=== PATIENT | male | born 1930 | race Caucasian/White ===

== ENCOUNTER 2017-01-30 06:46 | Day surgery (SDC) | payer OTHER, BC ==
[2017-01-29 11:13] VITALS: BMI 25.1
[~2017-01-30 06:46] MED LIST: LEVOFLOXACIN 500 MG PREMIX BAG IVPB ONE
[2017-01-30] MEDS ORDERED: LEVOFLOXACIN 500 MG IVPB 100 ML IVPB ONE (07:50)
[2017-01-30] MEDS ORDERED: MIDAZOLAM HCL 2 MG/2 ML SINGLE DOSE VIAL ONE (08:08)
[2017-01-30] MEDS ORDERED: LEVOFLOXACIN 500 MG PREMIX BAG IVPB ONE (08:20)
[2017-01-30] MEDS ORDERED: IOHEXOL 300 MG/ML INFUS..BTL IV ONE (08:24)
[2017-01-30] MEDS ORDERED: oxyCODONE HCL 5 MG TABLET PO PRN (08:41)
--- NOTE | 2017-01-30 08:43 | OP ---
Operative Note - Note: Operative Date: 01/30/17 Pre-Operative Diagnosis: rt distal ureteral stone Operation: ESWL Post-Operative Diagnosis: Same as Pre-op Surgeon: Luis Draper Anesthesia: General Estimated Blood Loss (mls): 0 Operative Report Dictated: Yes
[2017-01-30] MEDS ORDERED: PROPOFOL 20 ML ONE (08:45)
[2017-01-30] MEDS ORDERED: ELECTROLYTE-148 SOLN 1,000 ML IV SCH (08:45)
[2017-01-30] MEDS ORDERED: ONDANSETRON 4 MG/2 ML VIAL IVPUSH PRN (09:05)
[2017-01-30] MEDS ORDERED: ACETAMINOPHEN 325 MG TABLET (FP) PO PRN (09:05)
[2017-01-30] MEDS ORDERED: LACTATED RINGERS SOLUTION 1,000 ML IV SCH (09:15)
--- NOTE | 2017-01-30 09:16 | OP ---
DATE OF OPERATION: 01/30/2017 PREOPERATIVE DIAGNOSIS: Right distal ureteral stone. POSTOPERATIVE DIAGNOSIS: Right distal ureteral stone. PROCEDURE: Extracorporeal shock wave lithotripsy. SURGEON: Monica Weinstein MD INDICATIONS: Patient is an 86-year-old male with asymptomatic right ureteral stone, 5 mm in the distal ureter and 5 mm in the proximal ureter. He had recent UTI. He had failed percutaneous treatment and retrograde treatment, so he was taken to the OR for lithotripsy. DESCRIPTION OF PROCEDURE: The patient was placed on the lithotripsy table. Under active fluoroscopy, the stone could not be visualized. So, contrast was injected, and there was no evidence of hydronephrosis, but evidence of some small filing defect in the distal ureter. So, this area was centered in the crosshairs on both axes, and then, 3000 shocks were delivered in the distal ureter there where the presumed stone was after sedation was given. The patient was then awoken from anesthesia and transferred to the recovery room in stable condition. There were no complications. Estimated blood loss was zero. MONICA WEINSTEIN M.D. [id number]
[2017-01-30 09:30] VITALS: TEMP 97.6
[2017-01-30 15:04] VITALS: BP 128/75; PULSE 73
== END 2017-01-30 14:35 | disposition home or self-care (01) ==
LOC: JASU-SURG 06:46
PROVIDERS: ATTEND Urology
PROC: 0TF6XZZ Fragmentation in Right Ureter, External Approach (ICD-10-PCS; principal; 2017-01-30 08:15)
DX: N20.1 Calculus of ureter (principal)
CPT/HCPCS: 94760

== ENCOUNTER 2017-03-17 23:34 | Inpatient (IN) | payer OTHER, BC ==
[2017-03-17] MEDS ORDERED: ACETAMINOPHEN 1000 MG/100 ML VIAL (NON FORMULARY) IVPB ONE (23:41)
[2017-03-17] MEDS ORDERED: SODIUM CHLORIDE 1,000 ML IV STA (23:41)
--- NOTE | 2017-03-17 23:42 | PDOC ---
History of Present Illness - General History Source: EMS, Family, Old Records Exam Limitations: Dementia - History of Present Illness Initial Comments: 03/18/17 00:56 The patient is an 86 year old male with past medical history of hypertension, PE , DVT, bladder CA, dementia who arrives to the ED via EMS from home with altered mental status. As per son, he spoke the patient on the phone today and stated the patient wasnt talking like his normal self. He also adds that the aide noted the patient not acting the same. This evening, the patient reportedly slipped out of his wheelchair and EMS was called. In the ED, the patient was noted to have a 104 fever. The patient was seen two months ago for a lithotripsy. Also, the patient was seen by his field coil winder two weeks ago for an infection on his left foot in which he received antibiotics for. Urologist: Luis Draper Son: clementina [phone] <Areli Dillon - Last Filed: 03/18/17 01:21> - General History Source: EMS Exam Limitations: Clinical Condition <Khushbu Hercules - Last Filed: 03/20/17 07:40> - General Stated Complaint: FEVER/FALL Time Seen by Provider: 03/17/17 23:37 Past History <Areli Dillon - Last Filed: 03/18/17 01:21> - Past Medical History Anemia: No Asthma: No Cancer: Yes (BLADDER) Cardiac Disorders: No CVA: No COPD: No CHF: No Dementia: No Diabetes: No GI Disorders: No Disorders: Yes (KIDNEY STONES) HTN: Yes Hypercholesterolemia: No Liver Disease: No Seizures: No Thyroid Disease: No - Psycho/Social/Smoking Cessation Hx Smoking History: Never smoked Hx Alcohol Use: No Drug/Substance Use Hx: No Substance Use Type: None, Alcohol <Khushbu Hercules - Last Filed: 03/20/17 07:40> - Past Medical History Allergies/Adverse Reactions: Allergies Allergy/AdvReac Type Severity Reaction Status Date / Time No Known Drug Allergies Allergy Verified 03/17/17 23:58 Home Medications: Ambulatory Orders Apixaban [Eliquis -] 5 mg PO DAILY 01/29/17 Folic Acid 1 mg PO DAILY 01/29/17 Metoprolol Succinate [Toprol Xl -] 25 mg PO BID 01/29/17 Omeprazole 20 mg PO DAILY 01/29/17 Sertraline HCl 50 mg PO DAILY 01/29/17 Review of Systems - Review of Systems Able to Perform ROS?: No <Areli Dillon - Last Filed: 03/18/17 01:21> *Physical Exam - Vital Signs Last Vital Signs Temp Pulse Resp BP Pulse Ox 103.9 F H 96 H 26 H 139/83 97 03/17/17 23:56 03/17/17 23:56 03/17/17 23:56 03/17/17 23:56 03/17/17 23:56 - Physical Exam Comments: 03/18/17 00:58 GENERAL: Awake, alert, and fully oriented, in no acute distress HEAD: No signs of trauma EYES: PERRLA, EOMI, sclera anicteric, conjunctiva clear ENT: Grinding teeth. Auricles normal inspection, hearing grossly normal, nares patent, oropharynx clear without exudates. Moist mucosa NECK: Normal ROM, supple, no lymphadenopathy, JVD, or masses LUNGS: Upper airway noise HEART: Regular rate and rhythm, normal S1 and S2, no murmurs, rubs or gallops ABDOMEN: Left upper abdominal tenderness. EXTREMITIES: Left great toe swollen and erythematous. 2+ DP and PT pulses. Bilateral lower extremity edema and left greater than right NEUROLOGICAL: Cranial nerves II through XII grossly intact. Normal speech, normal gait SKIN: Stage 1 sacral decubitus ulcer <Areli Dillon - Last Filed: 03/18/17 01:21> Heart Score/ECG Review #1 ECG reviewed & interpreted by me at: 01:40 03/18/17 01:40 Twelve-lead EKG was performed and reviewed by me. There is normal sinus rhythm with a normal rate of 98bpm. Left axis deviation. The intervals are normal - pr: 188ms, QRS:82ms, QTc:492ms. There are no ST elevations or depressions. non specific artifacts noted. T wave flattening <Khushbu Hercules - Last Filed: 03/20/17 07:40> ED Treatment Course - LABORATORY CBC & Chemistry Diagram: 03/17/17 23:50 03/17/17 23:50 - ADDITIONAL ORDERS Additional order review: Laboratory Results 03/18/17 03/17/17 03/17/17 00:01 23:50 23:50 INR PTT (Actin FS) VBG pH POC VBG pCO2 POC VBG pO2 Mixed VBG HCO3 Sodium 138 Potassium 4.8 Chloride 102 Carbon Dioxide 23 Anion Gap 13 BUN 24 H Creatinine 1.2 Creat Clearance w eGFR 57.41 Random Glucose 174 H Lactic Acid 1.5 Calcium 8.4 L Total Bilirubin 0.8 AST 14 L ALT 10 L Alkaline Phosphatase 84 Creatine Kinase 31 L Troponin I < 0.02 Total Protein 7.0 Albumin 3.1 L Urine Color Yellow Urine Appearance Clear Urine pH 6.0 Urine Protein 1+ H Urine Glucose (UA) Negative Urine Ketones Trace H Urine Blood 1+ H Urine Nitrite Positive Urine Bilirubin Negative Urine Urobilinogen Negative Ur Leukocyte Esterase 2+ H Urine RBC 5 Urine WBC 115 Ur Epithelial Cells Rare Urine Bacteria Rare Hyaline Casts 1 Urine Mucus Many 03/17/17 03/17/17 23:50 23:40 INR 1.75 H PTT (Actin FS) 37.9 H VBG pH 7.39 POC VBG pCO2 40.1 POC VBG pO2 36.9 Mixed VBG HCO3 23.6 Sodium Potassium Chloride Carbon Dioxide Anion Gap BUN Creatinine Creat Clearance w eGFR Random Glucose Lactic Acid Calcium Total Bilirubin AST ALT Alkaline Phosphatase Creatine Kinase Troponin I Total Protein Albumin Urine Color Urine Appearance Urine pH Urine Protein Urine Glucose (UA) Urine Ketones Urine Blood Urine Nitrite Urine Bilirubin Urine Urobilinogen Ur Leukocyte Esterase Urine RBC Urine WBC Ur Epithelial Cells Urine Bacteria Hyaline Casts Urine Mucus 03/17/17 23:50 RBC 4.68 MCV 85.5 MCHC 32.0 RDW 17.0 H MPV 8.8 Neutrophils % 96.0 H Lymphocytes % 3.3 L Monocytes % 0.2 L Eosinophils % 0.1 Basophils % 0.4 - Medications Given in the ED: ED Medications Discontinued Medications Generic Name Dose Route Start Last Admin Trade Name Freq PRN Reason Stop Dose Admin Acetaminophen 1,000 mg 03/17/17 23:41 03/17/17 23:45 Ofirmev Injection - IVPB 03/17/17 23:42 1,000 mg ONCE ONE Administration Piperacillin Sod/Tazobactam Sod 4.5 gm 03/18/17 00:32 03/18/17 00:40 Zosyn 4.5gm Ivpb (Pre-Docked) IVPB 03/18/17 00:33 4.5 gm NOW ONE Administration <Areli Dillon - Last Filed: 03/18/17 01:21> - LABORATORY CBC & Chemistry Diagram: 03/20/17 05:15 03/20/17 05:15 - RADIOLOGY Radiology Studies Ordered: Category Date Time Status CHEST X-RAY PORTABLE* [RAD] Stat Radiology 03/17/17 23:40 Ordered <DiomedesKhushbu - Last Filed: 03/20/17 07:40> Medical Decision Making - Medical Decision Making 03/18/17 01:09 Phone call placed to ICU ADJUNCT PHLEBOTOMY INSTRUCTOR Luis via [phone] and case was discussed. 03/18/17 01:[address] as reviewed by Dr. Hudson shows no acute pathology. Microblog sent to [employer]. Awaiting for call back. <Areli Dillon - Last Filed: 03/18/17 01:21> - Critical Care Time Total Critical Care Time (minutes): 60 Critical Care Statement: The care of this patient involved high complexity decision making to prevent further life threatening deterioration of the patient 's condition and/or to evalute & treat vital organ system(s) failure or risk of failure. - Medical Decision Making 03/17/17 23:42 A portion of this note was documented by scribe services under my direction. I have reviewed the details of the note, within reason, and agree with the documentation with the following case summary and management plan written by me. Nursing documentation reviewed and incorporated into medical decision making 03/18/17 00:00 PMD: Dr Jesus ([facility]) Spoke with Clementina pt son Yesterday, he seemed to be alright Son called him to speak to him tonight approximately 9:30pm The aid passed him the phone but he did not say anything He told his aid that he wanted to go to bed Aid brought him in to his room on his wheelchair and he didn't want to get out of his wheelchair Later that evening, he slid out of the wheelchair and on to the floor Aid called for medical alert He has been having an issue with a kidney stone Had a lithotrypsy 1 month ago (Urologist - mack) He was able to treat one but not able to treat the other one He was seen by his PMD this week re: his great toe Title Department Manager cut his nail 2 weeks ago, and gave him an Antibiotic He apparently reported abdominal pain to his son He vomited twice enroute to the ER Pt is unable to give ANY history at this time 03/18/17 00:10 On examination: Pt is awake and alert Answers in single word answers RRR Upper airway noises (pt has a cough) ? left sided abdominal tenderness, no abd distention Left great toe discolored, no expressible purulence DP 2+ Neuro: Holds both arms up against gravity Unable to get pt to hold either legs up off of the bed DD: Sepsis (pneumonia, UTI +/- kidney stone, biliary pathology, Cellulitis/ osteomyelitis) CVA possible??? 03/18/17 00:49 Laboratory Tests 03/17/17 23:50 WBC 19.8 H Hgb 12.8 Hct 40.0 Plt Count 201 Neutrophils % 96.0 H Lymphocytes % 3.3 L Laboratory Tests 03/17/17 03/17/17 03/18/17 23:40 23:50 00:01 VBG pH 7.39 POC VBG pCO2 40.1 POC VBG pO2 36.9 Mixed VBG HCO3 23.6 BUN 24 H Creatinine 1.2 Random Glucose 174 H Creatine Kinase 31 L Troponin I < 0.02 Urine Blood 1+ H Urine Nitrite Positive Ur Leukocyte Esterase 2+ H 03/18/17 00:49 CXR: no old studies for comparison, mediastinum appears widened 03/18/17 01:25 Case reviewed with new order clerk Pt should be re hydrated May not need ICU if BP stabilizes 03/18/17 01:37 BP repeated: 87/43 Pt lactate nml Pt already given 2L NS Has NS at 100 Clinical impression: Urosepsis <Khushbu Hercules - Last Filed: 03/20/17 07:40> *DC/Admit/Observation/Transfer - Attestations Scribe Attestion: 03/18/17 01:02 Documentation prepared by Areli Dillon, acting as er medical technician for Khushbu Hercules MD. <Areli Dillon - Last Filed: 03/18/17 01:21> - Discharge Dispostion Admit: Yes <Khushbu Hercules - Last Filed: 03/20/17 07:40> Diagnosis at time of Disposition: Sepsis Qualifiers: Sepsis type: sepsis due to unspecified organism Qualified Code(s): A41.9 - Sepsis, unspecified organism - Discharge Dispostion Condition at time of disposition: Fair
[2017-03-17] MEDS ORDERED: ACETAMINOPHEN INJECTION 100 ML IVPB ONE (23:45)
[2017-03-18 00:03] LABS: BASOPHIL 0.4 % (0-2.0); EOSINOPHIL 0.1 % (0-4.5); MCH 27.4 pg (25.7-33.7); MEAN CELL VOLUME 85.5 fl (80-96); MEAN PLT VOLUME 8.8 fl (7.5-11.1); PLATELET COUNT 201 K/MM3 (134-434); WHITE BLOOD COUNT 19.8 K/mm3 (4.0-10.0)
[2017-03-18 00:17] LABS: ACTIVATED PTT 37.9 SECONDS (26.9-34.4)
[2017-03-18 00:23] LABS: INR 1.75 (0.82-1.09); PROTHROMBIN TIME (PATIENT) 19.5 SEC (9.98-11.88)
[2017-03-18] MEDS ORDERED: VANCOMYCIN 1,000 MG in DEXTROSE 5%-WATER - 250 ML IVPB ONE (00:32)
[2017-03-18] MEDS ORDERED: PIPERACILLIN/TAZOB 4.5 GM/100 ML PRE-DOCKED IVPB ONE (00:32)
[2017-03-18 00:33] LABS: ALBUMIN 3.1 g/dl (3.4-5.0); ANION GAP 13 (8-16); BILIRUBIN,TOTAL 0.8 mg/dL (0.2-1.0); CALCIUM 8.4 mg/dL (8.5-10.1); CO2 23 mmol/L (21-32); COCKROFT - GAULT 45.35; CREATININE 1.2 mg/dL (0.7-1.3); GLUCOSE,RANDOM 174 mg/dL (74-106); SGOT/AST 14 U/L (15-37); SGPT/ALT 10 U/L (12-78)
[2017-03-18 00:33] LABS: VENOUS BLOOD GAS HCO3 23.6 meq/L (19-25); VENOUS PH 7.39 (7.32-7.42)
[2017-03-18 00:36] LABS: ALK PHOS 84 U/L (45-117); TROPONIN I < 0.02 ng/ml (0.00-0.05)
[2017-03-18 00:37] LABS: URINE APPEARANCE CLEAR; URINE BILIRUBIN NEGATIVE (NEGATIVE); URINE COLOR YELLOW; URINE GLUCOSE (UA) NEGATIVE (NEGATIVE); URINE KETONE TRACE (NEGATIVE); URINE NITRITE POSITIVE (NEGATIVE); URINE UROBILINOGEN NEGATIVE E.U./dl (0.2-1.0)
[2017-03-18] MEDS ORDERED: SODIUM CHLORIDE 1,000 ML IV STA ×2 (00:45)
[2017-03-18] MEDS ORDERED: PIPERACILLIN/TAZOB 3.375 GM 50 ML IVPB ONE ×2 (00:46→00:47)
[2017-03-18 00:47] LABS: URINE BLOOD 1+ (NEGATIVE); URINE LEUK ESTERASE 2+ (NEGATIVE); URINE PROTEIN 1+ (NEGATIVE)
[2017-03-18] MEDS ORDERED: VANCOMYCIN 1 GRAM (PRE-DOCKED) 250 ML IVPB ONE (00:47)
[2017-03-18 00:49] LABS: URINE BACTERIA RARE /hpf (NONE SEEN); URINE HYALINE CAST 1 /lpf; URINE MUCUS MANY; URINE RBC 5 /hpf (0-3); URINE WBC 115 /hpf (3-5)
--- NOTE | 2017-03-18 01:36 | PN ---
<Garrett Reese - Last Filed: 03/18/17 01:35> Teaching Attending Note Name of Resident: Suki Stewart ATTENDING PHYSICIAN STATEMENT I saw and evaluated the patient. I reviewed the resident's note and discussed the case with the resident. I agree with the resident's findings and plan as documented. SUBJECTIVE: OBJECTIVE: ASSESSMENT AND PLAN: <DiamanteDania sommeran Adilene - Last Filed: 03/18/17 03:28> Teaching Attending Note ATTENDING PHYSICIAN STATEMENT I saw and evaluated the patient. I reviewed the resident's note and discussed the case with the resident. I agree with the resident's findings and plan as documented. SUBJECTIVE: 86 year old male, with a significant past medical history of hypertension, PE, DVT, bladder CA and dementia, who presents to the ED for altered mental status times 1 day, associated with fevers up to 103.9 degrees F. Patient found to have UA positive for pyuria and LE+. Also noted to have leukocytosis. Received vancomycin and Zosyn in the ED, as well as 2 liters of IVF for hypotension. Patient is admitted to the ICU. Overall poor historian due to dementia and altered mental status. OBJECTIVE: GENERAL: Awake, alert, in no acute distress. HEENT: Atraumatic. PERRLA, EOMI. Moist mucosa. No JVD. (+) Poor dentition. LUNGS: No distress, speaks full sentences, clear to auscultation bilaterally HEART: Regular rate and rhythm, normal S1 and S2, no murmurs, rubs or gallops, peripheral pulses normal and equal bilaterally. ABDOMEN: Soft, nontender, normoactive bowel sounds. No guarding, no rebound. No masses EXTREMITIES: Normal inspection, Normal range of motion, no edema. No clubbing or cyanosis. (+) Hallux was discolored. NEUROLOGICAL: Normal speech, no focal sensorimotor deficits SKIN: Warm, Dry, normal turgor, no rashes or lesions noted. : (+) Moyer catheter in place. Skin breakdown in right groin area. CBCD WBC 19.8 K/mm3 (4.0-10.0) H 03/17/17 23:50 RBC 4.68 M/mm3 (4.00-5.60) 03/17/17 23:50 Hgb 12.8 GM/dL (11.7-16.9) 03/17/17 23:50 Hct 40.0 % (35.4-49) 03/17/17 23:50 MCV 85.5 fl (80-96) 03/17/17 23:50 MCHC 32.0 g/dl (32.0-35.9) 03/17/17 23:50 RDW 17.0 % (11.9-15.9) H 03/17/17 23:50 Plt Count 201 K/MM3 (134-434) 03/17/17 23:50 MPV 8.8 fl (7.5-11.1) 03/17/17 23:50 CMP Sodium 138 mmol/L (136-145) 03/17/17 23:50 Potassium 4.8 mmol/L (3.5-5.1) 03/17/17 23:50 Chloride 102 mmol/L (98-107) 03/17/17 23:50 Carbon Dioxide 23 mmol/L (21-32) 03/17/17 23:50 Anion Gap 13 (8-16) 03/17/17 23:50 BUN 24 mg/dL (7-18) H 03/17/17 23:50 Creatinine 1.2 mg/dL (0.7-1.3) 03/17/17 23:50 Creat Clearance w eGFR 57.41 (>60) 03/17/17 23:50 Calcium 8.4 mg/dL (8.5-10.1) L 03/17/17 23:50 Total Bilirubin 0.8 mg/dL (0.2-1.0) 03/17/17 23:50 AST 14 U/L (15-37) L 03/17/17 23:50 ALT 10 U/L (12-78) L 03/17/17 23:50 Alkaline Phosphatase 84 U/L (45-117) 03/17/17 23:50 Total Protein 7.0 g/dl (6.4-8.2) 03/17/17 23:50 Albumin 3.1 g/dl (3.4-5.0) L 03/17/17 23:[address] Reviewed by Dr. Hudson Impression: No acute pathology. CT chest: There is no aortic aneurysm. Thyroid gland is slightly enlarged and irregular consistent with goiter There is no significant mediastinal or hilar adenopathy. The heart size is normal. Coronary artery calcifications are noted. The trachea and bronchi are patent. There is no pleural or pericardial effusion. The lungs are clear other than mild bilateral dependent atelectasis. Mild emphysematous changes are noted. CT abdomen and pelvis: Multiple small gallstones without gallbladder inflammation. Normal unenhanced liver, pancreas, spleen, adrenal glands and kidneys. Moderate-sized ventral hernia noted. The abdominal small and large bowel are normal. There is no aortic aneurysm. There is no significant retroperitoneal lymphadenopathy. Infrarenal* IVC filter is noted The pelvic small and large bowel are normal. There is no evidence of appendicitis, although the appendix is not clearly visualized. The urinary bladder is normal. The prostate gland is moderately enlarged. No pelvic free fluid is identified. There is no significant pelvic lymphadenopathy. 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 There is no fracture. *Infrarenal changed from Intrarenal (Typo). Discussed with Dr. Hudson from Imaging compensation director at 3:37am. ASSESSMENT AND PLAN 1. Sepsis secondary to UTI. Unknown organism. History of renal stones and bladder CA. - Blood cultures. - Urine cultures. - S/p vancomycin and Zosyn. - ID consult for antibiotic approvals. - Urology evaluation for complicated UTI. - If blood pressure does not improve after IVF will place central line and start on pressers. - Repeat Lactate. 2. History of DVT and PE, has IVC filter in place. - Continue Eliquis. 3. Diet -Regular diet 4. DVT prophylaxes - Already on Eliquis. Admit to ICU Documentation prepared by Kang Tamez, acting as medical massage therapist for Garrett Reese MD.
--- NOTE | 2017-03-18 02:12 | CONSULT ---
Consult Consult Specialty:: PULMONARY / CRITICAL CARE Referred by:: Dr Reese Reason for Consultation:: urosepsis - History of Present Illness Chief Complaint: altered mental status, abdominal pain History of Present Illness: 86 male with Dementia, HTN, DVT/PE (on AC), bladder CA, renal calculi, underwent ESWL 1 month ago here to remove a stone of the LEFT. He presented to the ED today with altered mental status, abdominal pain and fever. He was febrile to 102F, WBC is 19k, UA is dirty with >100WBC and 2+ LE. A CT of head, chest, abdomen, pelvis was done. There is no official read yet but there may be a residual stone in the left kidney and ?hydro vs a renal cyst. His blood pressure was in the 90s systolic, he was given 2L of IVF and started on Vanc/ Zosyn. His mental status improved with volume resuscitation. 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 Cardio/Vascular: Yes: HTN Pulmonary: Yes: Pulmonary Embolus Renal/: Yes: Cancer, Renal Calculi Heme/Onc: Yes: Cancer, Other (DVT) - Past Surgical History Additional Surgical History: ESWL - Alcohol/Substance Use Hx Alcohol Use: No - Smoking History Smoking history: Never smoked Home Medications - Allergies Allergies/Adverse Reactions: Allergies Allergy/AdvReac Type Severity Reaction Status Date / Time No Known Drug Allergies Allergy Verified 03/17/17 23:58 - Home Medications Home Medications: Ambulatory Orders Apixaban [Eliquis -] 5 mg PO DAILY 01/29/17 Folic Acid 1 mg PO DAILY 01/29/17 Metoprolol Succinate [Toprol Xl -] 25 mg PO BID 01/29/17 Omeprazole 20 mg PO DAILY 01/29/17 Sertraline HCl 50 mg PO DAILY 01/29/17 Review of Systems Unable to obtain ROS, reason: Dementia Physical Exam Vital Signs: Vital Signs Temperature 103.9 F H 03/17/17 23:56 Pulse Rate 98 H 03/18/17 00:30 Respiratory Rate 18 03/18/17 00:30 Blood Pressure 97/62 03/18/17 00:30 O2 Sat by Pulse Oximetry (%) 98 03/18/17 00:30 Constitutional: Yes: Well Nourished Eyes: Yes: WNL HENT: Yes: WNL Neck: Yes: WNL Cardiovascular: Yes: Regular Rate and Rhythm, S1, S2 Respiratory: Yes: CTA Bilaterally Gastrointestinal: Yes: Normal Bowel Sounds, Soft. No: Tenderness Extremities: Yes: WNL Edema: No Peripheral Pulses WNL: Yes Integumentary: Yes: WNL Labs: CBC, BMP 03/17/17 23:50 03/17/17 23:50 Imaging - Results Chest X-ray: Image Reviewed Cat Scan: Image Reviewed EKG: Image Reviewed Problem List - Problems (1) DARELL (acute kidney injury) Code(s): N17.9 - ACUTE KIDNEY FAILURE, UNSPECIFIED (2) Sepsis Code(s): A41.9 - SEPSIS, UNSPECIFIED ORGANISM Qualifiers: Sepsis type: sepsis due to unspecified organism Qualified Code(s): A41.9 - Sepsis, unspecified organism (5) Hypertension Code(s): I10 - ESSENTIAL (PRIMARY) HYPERTENSION (6) Renal calculi Code(s): N20.0 - CALCULUS OF KIDNEY Assessment/Plan Urosepis DARELL Bladder CA Prior DVT/PE Dementia -Volume resuscitation -ABX - Zosyn for now, can probably d/c Vanc -f/u cultures and narrow -Moyer -f/u CT and consider consult -Continue anticoagulation -Restart home meds as indicated -GI PPx Transfer to the floor Thank you for this interesting consult Ray Chen Pulm/Critical Care [employer]
[2017-03-18] MEDS ORDERED: LACTATED RINGERS SOLUTION 1,000 ML IV STA (02:29)
[2017-03-18] MEDS ORDERED: ACETAMINOPHEN 325 MG TABLET (FP) PO PRN (03:09)
--- NOTE | 2017-03-18 03:25 | HP ---
CHIEF COMPLAINT: altered mental status PCP: HISTORY OF PRESENT ILLNESS: This is a 86 year old male with a past medical history of dementia, bladder CA, DVT, PE, kidney stones, who was brought to hospital via EMS due to aide at home noticed patient was not at baseline/lethargic, with altered mental status. As per chart, aide was assisting patient to bed from wheelchair and he slipped off wheelchair and fell to floor. Aide stated recorded temp of 104F at home. ROS not attainable. Patient was recently seen two months ago for lithotripsy. ER course notable for fever 103, hypotension, leukocytosis, tachycardia. UA revealed pyuria, LE +. Patient was given 2L of IVF in ER, without adequate response in blood pressure. Lactic acid wnl. Imaging of head, chest abdomen and pelvis taken. Patient transferred to ICU for further management of blood pressure. Recent Travel: no PAST MEDICAL HISTORY: dementia, bladder CA, DVT, PE, kidney stones, hypertension PAST SURGICAL HISTORY: Social History: Smoking:no Alcohol:no Drugs: no Family History: Allergies No Known Drug Allergies Allergy (Verified 03/17/17 23:58) HOME MEDICATIONS: Home Medications Medication Instructions Recorded Apixaban [Eliquis -] 5 mg PO DAILY 01/29/17 Folic Acid 1 mg PO DAILY 01/29/17 Metoprolol Succinate [Toprol Xl -] 25 mg PO BID 01/29/17 Omeprazole 20 mg PO DAILY 01/29/17 Sertraline HCl 50 mg PO DAILY 01/29/17 REVIEW OF SYSTEMS Not attainable : patient confused PHYSICAL EXAMINATION Vital Signs - 24 hr 03/18/17 03/18/17 02:00 02:53 Temperature 100 F H 98.5 F Pulse Rate 89 Pulse Rate [ 98 H Apical] Respiratory 20 18 Rate Blood Pressure 96/59 Blood Pressure 87/51 [Right Arm] O2 Sat by Pulse 98 Oximetry (%) GENERAL: Awake, alert, and oriented to self only, in no acute distress. HEAD: Normal with no signs of trauma. EYES: Pupils equal,+cateract, round and reactive to light, extraocular movements intact, sclera anicteric, conjunctiva clear. No lid lag. LUNGS: Breath sounds equal, clear to auscultation bilaterally. No wheezes, and no crackles. No accessory muscle use. HEART: Regular rate and rhythm, normal S1 and S2 without murmur, rub or gallop. ABDOMEN: Soft, tender RLQ, not distended, normoactive bowel sounds, no guarding , no rebound, no masses. No hepatomegaly or splenomegaly. MUSCULOSKELETAL: Normal range of motion at all joints. No bony deformities or tenderness. No CVA tenderness. UPPER EXTREMITIES: 2+ pulses, warm, well-perfused. No cyanosis. No clubbing. No peripheral edema. LOWER EXTREMITIES: 2+ pulses, warm, well-perfused. No calf tenderness. No peripheral edema. 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 Good eye contact. Appropriate mood and affect. SKIN: Warm, dry, normal turgor, no rashes or lesions noted, normal capillary refill. There sis an open lesion of skin of the left groin area, non infected, no puss Head CT Reviewed by Dr. Hudson Impression: No acute pathology. CT chest: There is no aortic aneurysm. Thyroid gland is slightly enlarged and irregular consistent with goiter There is no significant mediastinal or hilar adenopathy. The heart size is normal. Coronary artery calcifications are noted. The trachea and bronchi are patent. There is no pleural or pericardial effusion. The lungs are clear other than mild bilateral dependent atelectasis. Mild emphysematous changes are noted. CT abdomen and pelvis: Multiple small gallstones without gallbladder inflammation. Normal unenhanced liver, pancreas, spleen, adrenal glands and kidneys. Moderate-sized ventral hernia noted. The abdominal small and large bowel are normal. There is no aortic aneurysm. There is no significant retroperitoneal lymphadenopathy. Infrarenal* IVC filter is noted The pelvic small and large bowel are normal. There is no evidence of appendicitis, although the appendix is not clearly visualized. The urinary bladder is normal. The prostate gland is moderately enlarged. No pelvic free fluid is identified. There is no significant pelvic lymphadenopathy. 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 There is no fracture. *Infrarenal changed from Intrarenal (Typo). Discussed with Dr. 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 ASSESSMENT/PLAN: This is an 86 year of male with dementia, hx of dvt, PE, bladder CA, htn, kidney stones, with increased lethargy, fever and ams, admitted for sepsis secondary to urinary tract infection. #sepsis secondary to urinary tract infection: -leukocytosis with positive UA most likely source of sepsis is urinary tract -first lactic acid wnl -given 2L IVF NS in ER without adequate response in BP; monitor BP and assess the need for central line -f/u blood and urine cultures -cont zosyn 4.45mg q8h -ID consult #altered mental status most likey secondary to UTI and baseline dementia; -r/o stroke, head CT pending #hx of kidney stones/left kidney with cyst? on abdominal CT -consult urology for complicated uti #hypertension: -hold home med metoprolol for now due to hypotension #open wound right groin: -look like is could be due to diaper against affected area; -wound care #left great toe swelling/erythema: -follows with podiatry as out patient as per nurse -no active open areas/ulcers -monitor for signs of infection of the area #hx of Pe/DVt: -on eliquis FEN: Fluids: NS a/p 2L ; getting 3rd liter; reassess vol status Diet: regular VTE prophylaxis: on eliquis Disposition: ICU monitoring, once bp stable can transfer to floor. Problem List - Problem (1) DARELL (acute kidney injury) Code(s): N17.9 - ACUTE KIDNEY FAILURE, UNSPECIFIED (2) Renal calculi Code(s): N20.0 - CALCULUS OF KIDNEY (3) Sepsis Code(s): A41.9 - SEPSIS, UNSPECIFIED ORGANISM Qualifiers: Sepsis type: sepsis due to unspecified organism Qualified Code(s): A41.9 - Sepsis, unspecified organism (4) Hypertension Code(s): I10 - ESSENTIAL (PRIMARY) HYPERTENSION Visit type - Emergency Visit Emergency Visit: Yes ED Registration Date: 03/18/17 Care time: The patient presented to the Emergency Department on the above date and was hospitalized for further evaluation of their emergent condition. - New Patient This patient is new to me today: Yes Date on this admission: 03/18/17 - Critical Care Critical Care patient: Yes Total Critical Care Time (in minutes): 35 Critical Care Statement: The care of this patient involved high complexity decision making to prevent further life threatening deterioration of the patient 's condition and/or to evalute & treat vital organ system(s) failure or risk of failure.
[2017-03-18 03:29] VITALS: BMI 23.5
[2017-03-18] MEDS ORDERED: LACTATED RINGERS SOLUTION 1,000 ML IV ONE (05:18)
[2017-03-18 08:09] LABS: BASOPHIL 0.4 % (0-2.0); MCHC 32.1 g/dl (32.0-35.9); MEAN CELL VOLUME 87.1 fl (80-96); MEAN PLT VOLUME 8.5 fl (7.5-11.1); NEUTROPHILS 89.1 % (42.8-82.8); PLATELET COUNT 155 K/MM3 (134-434); WHITE BLOOD COUNT 18.1 K/mm3 (4.0-10.0)
[2017-03-18 08:44] LABS: ALBUMIN 2.4 g/dl (3.4-5.0); ALK PHOS 66 U/L (45-117); ANION GAP 9 (8-16); BILIRUBIN,TOTAL 0.7 mg/dL (0.2-1.0); CO2 26 mmol/L (21-32); COCKROFT - GAULT 55.82; GLUCOSE,RANDOM 125 mg/dL (74-106); MAGNESIUM 2.1 mg/dL (1.8-2.4); PHOSPHOROUS 3.3 mg/dL (2.5-4.9); SGOT/AST 11 U/L (15-37); SGPT/ALT 10 U/L (12-78); TOT PROT 5.8 g/dl (6.4-8.2)
[2017-03-18] MEDS ORDERED: PT OWN MED DRAWER 7, Y5N ONE ×2 (09:20→10:28)
[2017-03-18] MEDS: FOLIC ACID 1 MG TABLET (FP) PO SCH (09:31)
[2017-03-18] MEDS: SERTRALINE HCL 50 MG TABLET (FP) PO SCH (09:31)
[2017-03-18] MEDS: MUPIROCIN 2% TOPICAL OINTMENT FOR DECOLONIZATION NS SCH ×2 (09:31→21:34)
[2017-03-18] MEDS: APIXABAN 5 MG TABLET PO SCH (09:31)
[2017-03-18] MEDS ORDERED: PANTOPRAZOLE 40 MG TABLET (FP) PO SCH (10:00)
[2017-03-18] MEDS ORDERED: HEPARIN NA (PORCINE) 5,000 UNITS/ML 1ML VIAL SQ SCH (10:00)
[2017-03-18] MEDS ORDERED: PIPERACILLIN/TAZOB 3.375 GM/50 ML PRE-DOCKED IVPB SCH (10:00)
--- NOTE | 2017-03-18 12:59 | CONSULT ---
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), bladder CA, renal calculi, underwent ESWL 1 month ago here to remove a stone on the left side Patient was admitted to the ICU because of AMS,abd pain and fever with hypotension and leukocytosis patient was given iv fluids and abx vanco and zosyn and patient stabilized patient currently says he is doing well and has no complaints According to information which i got from the nursing staff patient had a fall at home ' currently patient is stable - History Source History Provided By: Patient, Medical Record Limitations to Obtaining History: Other (dementia) - 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 Cardio/Vascular: Yes: HTN Pulmonary: Yes: Pulmonary Embolus Renal/: Yes: Cancer, Renal Calculi - Past Surgical History Additional Surgical History: ESWL - Alcohol/Substance Use Hx Alcohol Use: No - Smoking History Smoking history: Never smoked Have you smoked in the past 12 months: No Home Medications - Allergies Allergies/Adverse Reactions: Allergies Allergy/AdvReac Type Severity Reaction Status Date / Time No Known Drug Allergies Allergy Verified 03/17/17 23:58 - Home Medications Home Medications: Ambulatory Orders Apixaban [Eliquis -] 5 mg PO DAILY 01/29/17 Folic Acid 1 mg PO DAILY 01/29/17 Metoprolol Succinate [Toprol Xl -] 25 mg PO BID 01/29/17 Omeprazole 20 mg PO DAILY 01/29/17 Sertraline HCl 50 mg PO DAILY 01/29/17 Review of Systems - Review of Systems Constitutional: reports: Fever, Lethargy, Other Eyes: reports: No Symptoms HENT: reports: No Symptoms Neck: reports: No Symptoms Cardiovascular: reports: No Symptoms Respiratory: reports: No Symptoms Gastrointestinal: reports: No Symptoms Genitourinary: reports: No Symptoms Breasts: reports: No Symptoms Reported Musculoskeletal: reports: No Symptoms Integumentary: reports: No Symptoms Neurological: reports: Other (AMS) Hematology/Lymphatic: reports: No Symptoms Psychiatric: reports: No Symptoms Physical Exam Vital Signs: Vital Signs Temperature 98.3 F 03/18/17 06:53 Pulse Rate 85 03/18/17 08:00 Respiratory Rate 16 03/18/17 08:00 Blood Pressure 110/65 03/18/17 08:00 O2 Sat by Pulse Oximetry (%) 99 03/18/17 09:00 Constitutional: Yes: No Distress, Calm Eyes: Yes: Conjunctiva Clear HENT: Yes: Atraumatic, Normocephalic Neck: Yes: Supple, Trachea Midline Cardiovascular: Yes: Regular Rate and Rhythm Respiratory: Yes: Regular, CTA Bilaterally Gastrointestinal: Yes: Normal Bowel Sounds, Soft Musculoskeletal: Yes: Other Extremities: Yes: WNL Neurological: Yes: Alert, Other Labs: CBC, BMP 03/18/17 07:55 03/18/17 07:55 Imaging - Results Chest X-ray: Report Reviewed, Image Reviewed Cat Scan: Report Reviewed, Image Reviewed Assessment/Plan Problem List - Problems (1) DARELL (acute kidney injury) Code(s): N17.9 - ACUTE KIDNEY FAILURE, UNSPECIFIED (2) Sepsis Code(s): A41.9 - SEPSIS, UNSPECIFIED ORGANISM Qualifiers: Sepsis type: sepsis due to unspecified organism Qualified Code(s): A41.9 - Sepsis, unspecified organism (5) Hypertension Code(s): I10 - ESSENTIAL (PRIMARY) HYPERTENSION (6) Renal calculi Code(s): N20.0 - CALCULUS OF KIDNEY 7 uti 8 leukocytosis after looking at the past history and current symptoms there is high likely garcia bridger patient might have got infection from the urinary tract patient currently has stabilized but when he came in he was in sepsis plan no vanco we will continue zosyn further clarification of the uretric stone and also other findings on the ct scan hydration rest as per primary team continue to monitor wbc cc tim45 min
[2017-03-18] MEDS: PIPERACILLIN/TAZOB 3.375 GM 50 ML IVPB SCH ×2 (13:28→18:55)
--- NOTE | 2017-03-18 15:33 | EKG ---
Test Reason : Blood Pressure : / mmHG Vent. Rate : 098 BPM Atrial Rate : 098 BPM P-R Int : 176 ms QRS Dur : 082 ms QT Int : 378 ms P-R-T Axes : 074 -38 051 degrees QTc Int : 482 ms NORMAL SINUS RHYTHM LEFT AXIS DEVIATION NONSPECIFIC ST ABNORMALITY ABNORMAL ECG NO PREVIOUS ECGS AVAILABLE BASELINE ARTIFACT Confirmed by HERMES LOMAS MD ([id number]) on 03/18/2017 3:33:01 PM Referred By: Confirmed By:HERMES LOMAS MD
--- NOTE | 2017-03-18 15:38 | PN ---
Physical Exam: SUBJECTIVE: Patient seen and examined. He has no complaints. He denies chest pain, shortness of breath, abdominal pain, nausea, chills. OBJECTIVE: Vital Signs Period Temp Pulse Resp BP Sys/[place] Pulse Ox Last 24 Hr 98 F-100 F 72-98 12-20 84-110/51-68 98-99 GENERAL: The patient is awake, alert, confused, in no acute distress. LUNGS: Breath sounds equal, clear to auscultation bilaterally, no wheezes, no crackles, no accessory muscle use. HEART: Regular rate and rhythm, S1, S2 without murmur, rub or gallop. ABDOMEN: Soft, nontender, nondistended, normoactive bowel sounds, no guarding, no rebound, no hepatosplenomegaly, no masses. EXTREMITIES: 2+ pulses, warm, well-perfused, no edema. Laboratory Results - last 24 hr 03/18/17 03/18/17 03/18/17 05:20 05:20 07:55 WBC Cancelled 18.1 H Corrected WBC (auto) Cancelled RBC Cancelled 4.21 Hgb Cancelled 11.8 Hct Cancelled 36.7 MCV Cancelled 87.1 MCHC Cancelled 32.1 RDW Cancelled 17.0 H Plt Count Cancelled 155 D MPV Cancelled 8.5 Neutrophils % Cancelled 89.1 H Lymphocytes % Cancelled 5.2 L D Monocytes % Cancelled 5.3 D Eosinophils % Cancelled 0.0 D Basophils % Cancelled 0.4 Differential Comment Cancelled Smudge Cells Cancelled Platelet Estimate Cancelled Platelet Comment Cancelled RBC Morphology Cancelled Sodium Cancelled Potassium Cancelled Chloride Cancelled Carbon Dioxide Cancelled Anion Gap Cancelled BUN Cancelled Creatinine Cancelled Creat Clearance w eGFR Random Glucose Cancelled Calcium Cancelled Phosphorus Cancelled Magnesium Cancelled Total Bilirubin AST ALT Alkaline Phosphatase Total Protein Albumin 03/18/17 07:55 WBC Corrected WBC (auto) RBC Hgb Hct MCV MCHC RDW Plt Count MPV Neutrophils % Lymphocytes % Monocytes % Eosinophils % Basophils % Differential Comment Smudge Cells Platelet Estimate Platelet Comment RBC Morphology Sodium 144 Potassium 4.5 Chloride 109 H Carbon Dioxide 26 Anion Gap 9 BUN 18 D Creatinine 1.0 Creat Clearance w eGFR > 60 Random Glucose 125 H D Calcium 8.0 L Phosphorus 3.3 Magnesium 2.1 Total Bilirubin 0.7 AST 11 L D ALT 10 L Alkaline Phosphatase 66 D Total Protein 5.8 L Albumin 2.4 L D Active Medications Generic Name Dose Route Start Last Admin Trade Name Freq PRN Reason Stop Dose Admin Acetaminophen 650 mg 03/18/17 03:09 Tylenol - PO Q4H PRN FEVER OR PAIN Apixaban 5 mg 03/18/17 10:00 03/18/17 09:31 Eliquis - PO 5 mg DAILY CARLOS Administration Chlorhexidine Gluconate 1 applic 03/18/17 22:00 Hibiclens For Decolonization - TP HS CARLOS Folic Acid 1 mg 03/18/17 10:00 03/18/17 09:31 Folic Acid - PO 1 mg DAILY CARLOS Administration Piperacillin Sod/Tazobactam Sod 50 mls @ 100 mls/hr 03/18/17 13:00 03/18/17 13: 28 Zosyn 3.375gm Ivpb (Pre-Docked) IVPB 100 mls/hr Q8H-IV CARLOS Administration Protocol Mupirocin 1 applic 03/18/17 10:00 03/18/17 09:31 Bactroban Ointment (For Decolonization) - NS 03/23/17 09:59 1 applic BID CARLOS Administration Pantoprazole Sodium 40 mg 03/18/17 10:00 03/18/17 09:31 Protonix - PO 40 mg DAILY CARLOS Administration Sertraline HCl 50 mg 03/18/17 10:00 03/18/17 09:31 Zoloft - PO 50 mg DAILY CARLOS Administration ASSESSMENT/PLAN: This is an 86 year old man with a history of dementia, DVT/PE, bladder cancer, HTN, kidney stones, who presented to the ER with lethargy, fever and confusion. 1. Sepsis secondary to UTI, possible acute diverticulitis, cellulitis of left 1st toe - Afebrile, WBC improving - Continue Zosyn, IV fluid - Follow up blood and urine cultures - ID consult appreciated - Podiatry consult 2. Acute metabolic encephalopathy secondary to sepsis 3. Bilateral renal/ureteral stones 4. Bilateral renal cysts 5. HTN - Toprol XL held secondary to hypotension 6. Dementia 7. Bladder cancer 8. History of DVT/PE - Continue Eliquis - Has IVC filter 9. Right groin wound - Wound care Visit type - Emergency Visit Emergency Visit: Yes ED Registration Date: 03/18/17 Care time: The patient presented to the Emergency Department on the above date and was hospitalized for further evaluation of their emergent condition. - New Patient This patient is new to me today: Yes Date on this admission: 03/18/17 - Critical Care Critical Care patient: No - Discharge Referral Referred to [facility] Med P.C.: No
--- NOTE | 2017-03-18 17:47 | PN ---
Progress Note (short form) - Note Progress Note: Thank you so much for this kind referral. Will attend patient Sunday.
[2017-03-18] MEDS ORDERED: CHLORHEXIDINE GLUCONATE 4% CLEANSER FOR DECOLONIZATION TP SCH (22:00)
[2017-03-19] MEDS: PIPERACILLIN/TAZOB 3.375 GM 50 ML IVPB SCH ×3 (02:33→18:47)
[2017-03-19 06:10] LABS: BASOPHIL 0.2 % (0-2.0); MCH 27.7 pg (25.7-33.7); MEAN CELL VOLUME 86.4 fl (80-96); MEAN PLT VOLUME 8.8 fl (7.5-11.1); NEUTROPHILS 78.3 % (42.8-82.8); PLATELET COUNT 164 K/MM3 (134-434); RDW 17.5 % (11.9-15.9); WHITE BLOOD COUNT 9.4 K/mm3 (4.0-10.0)
[2017-03-19 07:13] LABS: CALCIUM 7.8 mg/dL (8.5-10.1)
[2017-03-19 07:16] LABS: ALBUMIN 2.5 g/dl (3.4-5.0); ALK PHOS 61 U/L (45-117); ANION GAP 6 (8-16); BILIRUBIN,TOTAL 0.4 mg/dL (0.2-1.0); CO2 28 mmol/L (21-32); COCKROFT - GAULT 62.02; CREATININE 0.9 mg/dL (0.7-1.3); GLUCOSE,RANDOM 80 mg/dL (74-106); MAGNESIUM 2.1 mg/dL (1.8-2.4); PHOSPHOROUS 2.9 mg/dL (2.5-4.9); SGOT/AST 11 U/L (15-37); SGPT/ALT 8 U/L (12-78); TOT PROT 5.6 g/dl (6.4-8.2)
--- NOTE | 2017-03-19 08:35 | MSN ---
Progress Note (short form) - Note Progress Note: Subjective: Patient was seen by me at the bedside. Patient was sleeping but easily awaken by light touch. Patient was speaking clearly and able to answer questions. Patient stated that he was feeling well. He was unable to answer questions about previous days as he could not remember and stated "I don't know" when he was asked why he was here. The patent denied any fever, chills, chest pain, nauseas, vomiting, headache or SOB. Vital Signs Period Temp Pulse Resp BP Sys/[place] Pulse Ox Last 24 Hr 97.8 F-98.7 F 72-86 14-23 91-122/57-78 98-99 Exam: General: Alert but unable to recall why he is in the hospital. He is currently in no acute distress. Eyes: PEARLA, extraocular muscles intact, conjunctiva and sclera unompromised. Neck: skin supple, trachea midline, no lymphadepathy Neuro: no focal necrological deficits. CN II, III, IV, IV, V, XI, XII are intact. Sensation in tact bilaterally in the face, upper and lower extremities. Heart: Regular rate and rhythm, Normal S1 and S2, no appreciable murmurs, rubs or gallops. Lung: clear to auscultation bilaterally in all lung gutierrez. Extremities- 4/5 muscle strength and 2/4 pulses bilaterally in both the upper and lower extremities. Abdomen- no guarding or rebounding. no tenderness to light or deep palpation in any of the four abdominal quadrants. Laboratory Results - last 24 hr 03/18/17 03/18/17 03/19/17 00:01 07:55 05:10 WBC 9.4 D RBC 3.95 L Hgb 11.0 L Hct 34.2 L MCV 86.4 MCHC 32.0 RDW 17.5 H Plt Count 164 MPV 8.8 Neutrophils % 78.3 Lymphocytes % 10.4 D Monocytes % 9.1 Eosinophils % 2.0 D Basophils % 0.2 Sodium 144 Potassium 4.5 Chloride 109 H Carbon Dioxide 26 Anion Gap 9 BUN 18 D Creatinine 1.0 Creat Clearance w eGFR > 60 Random Glucose 125 H D Calcium 8.0 L Phosphorus 3.3 Magnesium 2.1 Total Bilirubin 0.7 AST 11 L D ALT 10 L Alkaline Phosphatase 66 D Total Protein 5.8 L Albumin 2.4 L D Ur Specific [place] 1.015 03/19/17 05:10 WBC RBC Hgb Hct MCV MCHC RDW Plt Count MPV Neutrophils % Lymphocytes % Monocytes % Eosinophils % Basophils % Sodium 143 Potassium 4.3 Chloride 109 H Carbon Dioxide 28 Anion Gap 6 L BUN 15 Creatinine 0.9 Creat Clearance w eGFR > 60 Random Glucose 80 D Calcium 7.8 L Phosphorus 2.9 Magnesium 2.1 Total Bilirubin 0.4 D AST 11 L ALT 8 L Alkaline Phosphatase 61 Total Protein 5.6 L Albumin 2.5 L Ur Specific [place] Current Medications Generic Name Dose Route Start Last Admin Trade Name Freq PRN Reason Stop Dose Admin Acetaminophen 650 mg 03/18/17 03:09 Tylenol - PO Q4H PRN FEVER OR PAIN Apixaban 5 mg 03/18/17 10:00 03/18/17 09:31 Eliquis - PO 5 mg DAILY CARLOS Administration Chlorhexidine Gluconate 1 applic 03/18/17 22:00 03/18/17 21:34 Hibiclens For Decolonization - TP 1 applic HS CARLOS Administration Folic Acid 1 mg 03/18/17 10:00 03/18/17 09:31 Folic Acid - PO 1 mg DAILY CARLOS Administration Piperacillin Sod/Tazobactam Sod 50 mls @ 100 mls/hr 03/18/17 13:00 03/19/17 02: 33 Zosyn 3.375gm Ivpb (Pre-Docked) IVPB 100 mls/hr Q8H-IV CARLOS Administration Protocol Mupirocin 1 applic 03/18/17 10:00 03/18/17 21:34 Bactroban Ointment (For Decolonization) - NS 03/23/17 09:59 1 applic BID CARLOS Administration Ranitidine HCl 150 mg 03/19/17 10:00 Zantac Oral Solution - PO BID CARLOS Sertraline HCl 50 mg 03/18/17 10:00 03/18/17 09:31 Zoloft - PO 50 mg DAILY CARLOS Administration Imaging- Head CT (03/18/17)- no evidence of acute intracranial pathology Abdominal/Pelvic CT (03/18/17)- 5mm nonobstructing left renal stone. Questionable 1mm proximal right ureteral stone. 9.8 cm exophytic left upper renal pole cyst Foot Xray (03/19/17)- completed awaiting results Assessment and Plan- Patient is an 86 year old man with past medical history of dementia, DVT, PE, bladder cancer, kidney stones, who presented to the ER with lethargy and fever who was admitted for sepsis secondary to UTI. Sepsis secondary to UTI - Zosyn 3.375 gm, 50mls @ 100mls/hr (day 2) - acetaminophen 650 mg PO q 4hr PRN, for pain or fever - Urine culture positive for psuedomonas - blood culture positive for gram positive bacilli Altered mental Status - rule out stroke - continue to monitor past HX of Kidney Stone - consult urology Hypertension - hold metoprolol because of hypotension DVT - apixiban 5mg PO daily F/E/N -regular diet
[2017-03-19] MEDS: APIXABAN 5 MG TABLET PO SCH (11:17)
[2017-03-19] MEDS: FOLIC ACID 1 MG TABLET (FP) PO SCH (11:17)
[2017-03-19] MEDS: RANITIDINE HCL 150 MG/10 ML UNIT-DOSE CUP PO SCH ×2 (11:18→21:42)
[2017-03-19] MEDS: SERTRALINE HCL 50 MG TABLET (FP) PO SCH (11:18)
--- NOTE | 2017-03-19 11:40 | PN ---
Physical Exam: SUBJECTIVE: Patient seen and examined in the ICU at bedside. He has no complaint and denies fever, chills, n/v, chest pain, sob, urinary or bowel symptoms. OBJECTIVE: Vital Signs Period Temp Pulse Resp BP Sys/[place] Pulse Ox Last 24 Hr 97.8 F-98.7 F 72-93 14-23 91-122/57-78 97-98 GENERAL: AAO x 3, Appears appropriated to stated age, mildly demented, in no acute distress. EYES: PERRLA ENT: oropharynx clear without exudates, moist mucous membranes. LUNGS: CTAB HEART: RRR, S1, S2 without murmur, rub or gallop. ABDOMEN: Soft, nontender, nondistended, normoactive bowel sounds, no guarding, no rebound, no hepatosplenomegaly, no masses. EXTREMITIES: +2 symmetric peripheral pulses in LE bilaterally, +1 bilateral peripheral edema; moderately edematous and mildly erythematous bilateral big toe SKIN: Stage 1 decubitus ulcer in L groin CBCD WBC 9.4 K/mm3 (4.0-10.0) D 03/19/17 05:10 RBC 3.95 M/mm3 (4.00-5.60) L 03/19/17 05:10 Hgb 11.0 GM/dL (11.7-16.9) L 03/19/17 05:10 Hct 34.2 % (35.4-49) L 03/19/17 05:10 MCV 86.4 fl (80-96) 03/19/17 05:10 MCHC 32.0 g/dl (32.0-35.9) 03/19/17 05:10 RDW 17.5 % (11.9-15.9) H 03/19/17 05:10 Plt Count 164 K/MM3 (134-434) 03/19/17 05:10 MPV 8.8 fl (7.5-11.1) 03/19/17 05:10 CMP Sodium 143 mmol/L (136-145) 03/19/17 05:10 Potassium 4.3 mmol/L (3.5-5.1) 03/19/17 05:10 Chloride 109 mmol/L (98-107) H 03/19/17 05:10 Carbon Dioxide 28 mmol/L (21-32) 03/19/17 05:10 Anion Gap 6 (8-16) L 03/19/17 05:10 BUN 15 mg/dL (7-18) 03/19/17 05:10 Creatinine 0.9 mg/dL (0.7-1.3) 03/19/17 05:10 Creat Clearance w eGFR > 60 (>60) 03/19/17 05:10 Calcium 7.8 mg/dL (8.5-10.1) L 03/19/17 05:10 Total Bilirubin 0.4 mg/dL (0.2-1.0) D 03/19/17 05:10 AST 11 U/L (15-37) L 03/19/17 05:10 ALT 8 U/L (12-78) L 03/19/17 05:10 Alkaline Phosphatase 61 U/L (45-117) 03/19/17 05:10 Total Protein 5.6 g/dl (6.4-8.2) L 03/19/17 05:10 Albumin 2.5 g/dl (3.4-5.0) L 03/19/17 05:10 Urine Test Results Urine Color Yellow 03/18/17 00:01 Urine Appearance Clear 03/18/17 00:01 Urine pH 6.0 (5.0-8.0) 03/18/17 00:01 Ur Specific [place] 1.015 (1.005-1.025) 03/18/17 00:01 Urine Protein 1+ (NEGATIVE) H 03/18/17 00:01 Urine Glucose (UA) Negative (NEGATIVE) 03/18/17 00:01 Urine Ketones Trace (NEGATIVE) H 03/18/17 00:01 Urine Blood 1+ (NEGATIVE) H 03/18/17 00:01 Urine Nitrite Positive (NEGATIVE) 03/18/17 00:01 Urine Bilirubin Negative (NEGATIVE) 03/18/17 00:01 Ur Leukocyte Esterase 2+ (NEGATIVE) H 03/18/17 00:01 Urine RBC 5 /hpf (0-3) 03/18/17 00:01 Urine WBC 115 /hpf (3-5) 03/18/17 00:01 Ur Epithelial Cells Rare /hpf (FEW) 03/18/17 00:01 Urine Bacteria Rare /hpf (NONE SEEN) 03/18/17 00:01 Urine Mucus Many 03/18/17 00:01 Intake & Output 03/16/17 03/17/17 03/18/17 03/19/17 23:59 23:59 23:59 23:59 Intake Total 6520 Output Total 1999 200 Balance 4520 -200 Weight 72.575 kg 74.435 kg ` Active Medications Generic Name Dose Route Start Last Admin Trade Name Freq PRN Reason Stop Dose Admin Acetaminophen 650 mg 03/18/17 03:09 Tylenol - PO Q4H PRN FEVER OR PAIN Apixaban 5 mg 03/18/17 10:00 03/18/17 09:31 Eliquis - PO 5 mg DAILY [facility] Administration Chlorhexidine Gluconate 1 applic 03/18/17 22:00 03/18/17 21:34 Hibiclens For Decolonization - TP 1 applic HS [facility] Administration Folic Acid 1 mg 03/18/17 10:00 03/18/17 09:31 Folic Acid - PO 1 mg DAILY [facility] Administration Piperacillin Sod/Tazobactam Sod 50 mls @ 100 mls/hr 03/18/17 13:00 03/19/17 02: 33 Zosyn 3.375gm Ivpb (Pre-Docked) IVPB 100 mls/hr Q8H-IV [facility] Administration Protocol Mupirocin 1 applic 03/18/17 10:00 03/18/17 21:34 Bactroban Ointment (For Decolonization) - NS 03/23/17 09:59 1 applic BID [facility] Administration Ranitidine HCl 150 mg 03/19/17 10:00 Zantac Oral Solution - PO BID [facility] Sertraline HCl 50 mg 03/18/17 10:00 03/18/17 09:31 Zoloft - PO 50 mg DAILY [facility] Administration Microbiology 03/18/17 00:01 Urine Culture - Preliminary Urine - Urine Clean Catch Presumptive Ps Aeruginosa 03/17/17 00:01 Blood Culture - Preliminary Blood - Peripheral Venous Pending Organism 03/17/17 23:50 Blood Culture - Preliminary Blood - Peripheral Venous NO GROWTH OBTAINED AFTER 24 HOURS, INCUBATION TO CONTINUE FOR 4 DAYS. IMAGING Foot X-ray on 03/18: Pending Chest/Abd/Pelvis CT on 03/18: Cystitis, mild diverticulitis, gall stones, IVC filter in place, ankylosing spondylitis, sliding hiatal hernia, enlarged prostate, 5mm non-obstructing renal stone, questionable R kidney stone about 1mm , bilateral renal cysts, no acute pulmonary pathology. Head CT on 03/18: no acute finding Chest X-ray on 03/18: no acute finding ASSESSMENT/PLAN: 86 yo M h/o mild dementia, DVT and PE on eliquis, bladder cancer, diverticulosis , HTN, kidney cysts and stones admitted to the ICU for sepsis. ID: sepsis - Resolved - Likely 2/2 UTI and cellulitis or sacral ulcer, less likely diverticulitis * awaiting podiatry input * pending urine and blood cultures - Cont. prophylactic zosyn 3.375g Q8H (day 2) Neuro: acute toxic metabolic encephalopathy - Resolved - Likely 2/2 sepsis Renal: HTN, nephrolithiasis and cysts - SBP ranges from 100-120 off Toprol * cont. to hold - Bilateral cysts and non-obstructing stones on CT - No hydronephrosis - February f/u urology and nephrology as outpatient HemOnc: hypercoagulable state h/o bladder CA, DVT and PE - IVC filter identified on CT - Cont. eliquis 5mg PO daily FEN - IVF not indicated - Cont. to monitor lytes - Na+ controlled diet, dietary consult for low protein and albumin Prophylaxis - DVT: on eliquis - GI: not indicated Dispo - Transfer to floors - Awaiting podiatry input and cultures Code status - Full Visit type - Emergency Visit Emergency Visit: No - New Patient This patient is new to me today: No - Critical Care Critical Care patient: No
[2017-03-19] MEDS: MUPIROCIN 2% TOPICAL OINTMENT FOR DECOLONIZATION NS SCH ×2 (12:08→21:42)
--- NOTE | 2017-03-19 12:12 | PN ---
Teaching Attending Note Name of Resident: Ghulam Hernandez ATTENDING PHYSICIAN STATEMENT I saw and evaluated the patient. I reviewed the resident's note and discussed the case with the resident. I agree with the resident's findings and plan as documented. SUBJECTIVE: Pt seen and examined in the ICU. Denies any fevers, chills. No abdominal or flank pain. OBJECTIVE: Last Vital Signs Temp Pulse Resp BP Pulse Ox 98 F 93 H 22 117/65 97 03/19/17 06:00 03/19/17 10:12 03/19/17 08:00 03/19/17 08:00 03/19/17 10:12 Intake & Output 03/16/17 03/17/17 03/18/17 03/19/17 23:59 23:59 23:59 23:59 Intake Total 6520 Output Total 2000 200 Balance 4520 -200 Weight 160 lb 164 lb 1.6 oz Gen: NAD at rest Heart: RRR Lung: decreased breath sounds at the bases Abd: soft, nontender Ext: no edema CBC, BMP 03/19/17 05:10 03/19/17 05:10 Active Medications Acetaminophen (Tylenol -) 650 mg PO Q4H PRN PRN Reason: FEVER OR PAIN Apixaban (Eliquis -) 5 mg PO DAILY [facility] Last Admin: 03/19/17 11:17 Dose: 5 mg Chlorhexidine Gluconate (Hibiclens For Decolonization -) 1 applic TP HS [facility] Last Admin: 03/18/17 21:34 Dose: 1 applic Folic Acid (Folic Acid -) 1 mg PO DAILY [facility] Last Admin: 03/19/17 11:17 Dose: 1 mg Piperacillin Sod/Tazobactam Sod (Zosyn 3.375gm Ivpb (Pre-Docked)) 50 mls @ 100 mls/hr IVPB Q8H-IV [facility] PRN Reason: Protocol Last Admin: 03/19/17 11:18 Dose: 100 mls/hr Mupirocin (Bactroban Ointment (For Decolonization) -) 1 applic NS BID [facility] Stop: 03/23/17 09:59 Last Admin: 03/19/17 12:08 Dose: 1 applic Ranitidine HCl (Zantac Oral Solution -) 150 mg PO BID [facility] Last Admin: 03/19/17 11:18 Dose: 150 mg Sertraline HCl (Zoloft -) 50 mg PO DAILY [facility] Last Admin: 03/19/17 11:18 Dose: 50 mg ASSESSMENT AND PLAN: UTI Sepsis Acute Kidney Injury improving Bladder CA h/o DVT/PE Dementia - continue antibiotics - f/u cultures - tolerating PO, monitor off IVF - monitor urine output, creatinine - continue anticoagulation - LE dopplers - can monitor on floor
--- NOTE | 2017-03-19 13:08 | PN ---
Teaching Attending Note Name of Resident: Jakub Loyola ATTENDING PHYSICIAN STATEMENT I saw and evaluated the patient. I reviewed the resident's note and discussed the case with the resident. I agree with the resident's findings and plan as documented. SUBJECTIVE: Patient is awake and alert. He has no complaints. OBJECTIVE: Vital Signs Period Temp Pulse Resp BP Sys/[place] Pulse Ox Last 24 Hr 97.8 F-98.7 F 75-93 15-23 91-128/57-79 97-98 HEART: S1S2, RRR LUNGS: Clear ABDOMEN: Soft, non-tender, non-distended, normal BS EXTREMITIES: No edema ASSESSMENT AND PLAN: This is an 86 year old man with a history of dementia, DVT/PE, bladder cancer, HTN, kidney stones, who presented to the ER with lethargy, fever and confusion. 1. Sepsis secondary to UTI, possible acute diverticulitis, cellulitis of left 1st toe - Afebrile, WBC improved - Continue Zosyn - Follow up blood cultures - Urine culture growing Pseudomonas - Podiatry consult 2. Acute metabolic encephalopathy secondary to sepsis - Improved 3. Bilateral renal/ureteral stones 4. Bilateral renal cysts 5. HTN - Toprol XL held secondary to hypotension 6. Dementia 7. Bladder cancer 8. History of DVT/PE - Continue Eliquis - Has IVC filter 9. Right groin wound - Wound care
--- NOTE | 2017-03-19 15:30 | PN ---
Progress Note, Physician History of Present Illness: stable no distress dementia looks like he is back at his baseline - Current Medication List Current Medications: Active Medications Acetaminophen (Tylenol -) 650 mg PO Q4H PRN PRN Reason: FEVER OR PAIN Amino Acids (Prosource No Carb Liquid Pkt) 30 ml PO BID@0800,1730 [facility] Apixaban (Eliquis -) 5 mg PO DAILY [facility] Last Admin: 03/19/17 11:17 Dose: 5 mg Chlorhexidine Gluconate (Hibiclens For Decolonization -) 1 applic TP HS [facility] Last Admin: 03/18/17 21:34 Dose: 1 applic Folic Acid (Folic Acid -) 1 mg PO DAILY [facility] Last Admin: 03/19/17 11:17 Dose: 1 mg Piperacillin Sod/Tazobactam Sod (Zosyn 3.375gm Ivpb (Pre-Docked)) 50 mls @ 100 mls/hr IVPB Q8H-IV [facility] PRN Reason: Protocol Last Admin: 03/19/17 11:18 Dose: 100 mls/hr Multivitamins/Minerals/Vitamin C (Tab-A-Vit -) 1 tab PO DAILY [facility] Mupirocin (Bactroban Ointment (For Decolonization) -) 1 applic NS BID [facility] Stop: 03/23/17 09:59 Last Admin: 03/19/17 12:08 Dose: 1 applic Ranitidine HCl (Zantac Oral Solution -) 150 mg PO BID [facility] Last Admin: 03/19/17 11:18 Dose: 150 mg Sertraline HCl (Zoloft -) 50 mg PO DAILY [facility] Last Admin: 03/19/17 11:18 Dose: 50 mg - Objective Vital Signs: Vital Signs Temperature 98 F 03/19/17 06:00 Pulse Rate 87 03/19/17 14:00 Respiratory Rate 22 03/19/17 14:00 Blood Pressure 97/53 03/19/17 14:00 O2 Sat by Pulse Oximetry (%) 97 03/19/17 10:12 Constitutional: Yes: No Distress, Calm Cardiovascular: Yes: Regular Rate and Rhythm Respiratory: Yes: Regular, CTA Bilaterally Gastrointestinal: Yes: Normal Bowel Sounds, Soft Musculoskeletal: Yes: WNL Extremities: Yes: WNL Neurological: Yes: Alert, Oriented Psychiatric: Yes: Alert Labs: CBC, BMP 03/19/17 05:10 03/19/17 05:10 INR, PTT INR 1.75 (0.82-1.09) H 03/17/17 23:50 Assessment/Plan Problem List - Problems (1) DARELL (acute kidney injury) Code(s): N17.9 - ACUTE KIDNEY FAILURE, UNSPECIFIED (2) Sepsis Code(s): A41.9 - SEPSIS, UNSPECIFIED ORGANISM Qualifiers: Sepsis type: sepsis due to unspecified organism Qualified Code(s): A41.9 - Sepsis, unspecified organism (5) Hypertension Code(s): I10 - ESSENTIAL (PRIMARY) HYPERTENSION (6) Renal calculi Code(s): N20.0 - CALCULUS OF KIDNEY 7 uti pseudomonas 8 leukocytosis patient urine is postive also his blood is showing bacteria though i think that might be a contaminant plan continue zosyn will repeat blood cx continue monitoring rest as per icu/primary cc tim40 min
--- NOTE | 2017-03-19 16:02 | CONSULT ---
Consult Consult Specialty:: urology Reason for Consultation:: 86 year old male with bladder cancer and ureteral stones who presents with UTI - History of Present Illness Chief Complaint: uti History of Present Illness: 86 year old male with UTI and a history of bladder cancer and ureteral stone. He has no pain and no gross hematuria. CT scan shows no obstructing stones, only a 5mm renal calculus. 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: Dementia Cardio/Vascular: Yes: HTN Pulmonary: Yes: Pulmonary Embolus Renal/: Yes: Cancer, Renal Calculi - Past Surgical History Additional Surgical History: ESWL - Alcohol/Substance Use Hx Alcohol Use: No - Smoking History Smoking history: Never smoked Have you smoked in the past 12 months: No Home Medications - Allergies Allergies/Adverse Reactions: Allergies Allergy/AdvReac Type Severity Reaction Status Date / Time No Known Drug Allergies Allergy Verified 03/17/17 23:58 - Home Medications Home Medications: Ambulatory Orders Apixaban [Eliquis -] 5 mg PO DAILY 01/29/17 Folic Acid 1 mg PO DAILY 01/29/17 Metoprolol Succinate [Toprol Xl -] 25 mg PO BID 01/29/17 Omeprazole 20 mg PO DAILY 01/29/17 Sertraline HCl 50 mg PO DAILY 01/29/17 Review of Systems - Review of Systems Genitourinary: denies: Burning, Flank Pain, Hematuria Physical Exam Vital Signs: Vital Signs Temperature 98 F 03/19/17 06:00 Pulse Rate 87 03/19/17 14:00 Respiratory Rate 22 03/19/17 14:00 Blood Pressure 97/53 03/19/17 14:00 O2 Sat by Pulse Oximetry (%) 97 03/19/17 10:12 Renal/: Yes: Luong Present. No: Bladder Distention, CVA Tenderness - Left, CVA Tenderness - Right, Hematuria Labs: CBC, BMP 03/19/17 05:10 03/19/17 05:10 Imaging - Results Cat Scan: Report Reviewed Problem List - Problems (1) Renal calculi Assessment/Plan: no obstructing stone. continue antibiotics for UTI. remove luong when desired. Code(s): N20.0 - CALCULUS OF KIDNEY (2) Bladder carcinoma Assessment/Plan: no hematuria. CT scan looks good Code(s): C67.9 - MALIGNANT NEOPLASM OF BLADDER, UNSPECIFIED
[2017-03-19] MEDS ORDERED: LIDOCAINE HCL 1%, 10 MG/ML (20ML VIAL) ONE (17:15)
--- NOTE | 2017-03-19 17:54 | PN ---
Progress Note (short form) - Note Progress Note: Consult dictated. Bedside I and D and nail avulsion performed for an acute lizet (paronychia)
[2017-03-19] MEDS: AMINO ACIDS/PROTEIN HYDROLYS 30 ML LIQUID.PKT PO SCH (18:47)
[2017-03-19] MEDS: MULTIVITAMINS (DAILY MVI) TABLET (FP) PO SCH (18:55)
[2017-03-19] MEDS ORDERED: ACETAMINOPHEN 325 MG TABLET (FP) PO PRN (19:43)
--- NOTE | 2017-03-19 20:04 | PN ---
Physical Exam: SUBJECTIVE: Patient seen and examined. sitting comfortably in bed. does not know why he was brought to the hospital. denies chest pain, sob, abdominal pain. OBJECTIVE: Vital Signs Period Temp Pulse Resp BP Sys/[place] Pulse Ox Last 24 Hr 97.8 F-98.5 F 76-93 16-23 92-147/53-92 97-98 GENERAL: The patient is awake, alert, and person/place/date/president, in no acute distress. HEAD: Normal with no signs of trauma. EYES: PERRL, extraocular movements intact, sclera anicteric, conjunctiva clear. No ptosis. ENT: nares patent, oropharynx clear without exudates, moist mucous membranes. NECK: Trachea midline, full range of motion, supple. LUNGS: Breath sounds equal, clear to auscultation bilaterally, no wheezes, no crackles, no accessory muscle use. HEART: Regular rate and rhythm, S1, S2 without murmur, rub or gallop. ABDOMEN: Soft, nontender, nondistended, normoactive bowel sounds, no guarding EXTREMITIES: 2+ radial/DPpulses, Right lower leg with erythema and warmer than left leg- no edema/swelling/ pruritis, no calf tenderness. Right medial groin with two ulcers with scant blood in the center, ttp no discharge or surrounding erythema, no underlying fluctuance palpable Left lower leg without erythema/edema, 1st digit with swelling and erythema distally, yellow/thickened nail ttp distally(not at joint), skin intact, no discharge around nail bed, warm to touch. NEUROLOGICAL: Cranial nerves II through XII grossly intact. Normal speech, gait not observed. 4/5 hand lathe set up operator strength b/l, flexion and extension biceps/triceps 4/5. able to move toes. sensation intact in arms and legs. Luong in place Laboratory Results - last 24 hr 03/19/17 03/19/17 05:10 05:10 WBC 9.4 D RBC 3.95 L Hgb 11.0 L Hct 34.2 L MCV 86.4 MCHC 32.0 RDW 17.5 H Plt Count 164 MPV 8.8 Neutrophils % 78.3 Lymphocytes % 10.4 D Monocytes % 9.1 Eosinophils % 2.0 D Basophils % 0.2 Sodium 143 Potassium 4.3 Chloride 109 H Carbon Dioxide 28 Anion Gap 6 L BUN 15 Creatinine 0.9 Creat Clearance w eGFR > 60 Random Glucose 80 D Calcium 7.8 L Phosphorus 2.9 Magnesium 2.1 Total Bilirubin 0.4 D AST 11 L ALT 8 L Alkaline Phosphatase 61 Total Protein 5.6 L Albumin 2.5 L Active Medications Generic Name Dose Route Start Last Admin Trade Name Freq PRN Reason Stop Dose Admin Acetaminophen 650 mg 03/18/17 03:09 Tylenol - PO Q4H PRN FEVER OR PAIN Amino Acids 30 ml 03/19/17 17:30 03/19/17 18:47 Prosource No Carb Liquid Pkt PO 30 ml BID@0800,1730 [facility] Administration Apixaban 5 mg 03/18/17 10:00 03/19/17 11:17 Eliquis - PO 5 mg DAILY [facility] Administration Chlorhexidine Gluconate 1 applic 03/18/17 22:00 03/18/17 21:34 Hibiclens For Decolonization - TP 1 applic HS [facility] Administration Folic Acid 1 mg 03/18/17 10:00 03/19/17 11:17 Folic Acid - PO 1 mg DAILY [facility] Administration Piperacillin Sod/Tazobactam Sod 50 mls @ 100 mls/hr 03/18/17 13:00 03/19/17 18: 47 Zosyn 3.375gm Ivpb (Pre-Docked) IVPB 100 mls/hr Q8H-IV [facility] Administration Protocol Multivitamins/Minerals/Vitamin C 1 tab 03/19/17 13:45 03/19/17 18:55 Tab-A-Vit - PO 1 tab DAILY [facility] Administration Mupirocin 1 applic 03/18/17 10:00 03/19/17 12:08 Bactroban Ointment (For Decolonization) - NS 03/23/17 09:59 1 applic BID [facility] Administration Mupirocin 1 applic 03/20/17 09:00 Bactroban 2% Ointment - TP BID [facility] Ranitidine HCl 150 mg 03/19/17 10:00 03/19/17 11:18 Zantac Oral Solution - PO 150 mg BID [facility] Administration Sertraline HCl 50 mg 03/18/17 10:00 03/19/17 11:18 Zoloft - PO 50 mg DAILY [facility] Administration ASSESSMENT/PLAN: 86 yr old man with hx of bladder ca, nephrolithiasis, dementia, DVT/PE, HTN, bibems from home due to witnessed mechanical fall during transfer, fever and AMS found to have sepsis from UTI or cellulitis of toe as source. Infectious Disease sepsis secondary to UTI or cellulitis of left toe zosyn IVpB q8hr - start 03/18 Podiatry consult for cellulitis of the left toe evaluation urine and blx cx pending Renal DARELL, renal function improved with IVF. encourage oral hydration will remove luong for trial void, patient does not use luong at home, it was placed in the ICU Urology dr. núñez consulted for complicated UTI, hx of bladder ca and nephrolithiasis Dermatological Ulcer in right groin likely pressure induced, apply mupirocin dialy Neurological at baseline pt has dementia, currently alert and oriented to person/place/time zoloft 50mg po daily Cardiovascular duplex of right leg negative for DVT, monitor for worsening of erythema/ possible cellulitis, patient already on abx GI Zantac for porphylaxis MVI, prosource and folic acid supplementation to improve nutritional status DVT eliquis 5 mg po daily Diet: sodium controlled Dispo: can be monitored on med/surg floor. Visit type - Emergency Visit Emergency Visit: No - New Patient This patient is new to me today: Yes Date on this admission: 03/19/17 - Critical Care Critical Care patient: Yes Total Critical Care Time (in minutes): 37 Critical Care Statement: The care of this patient involved high complexity decision making to prevent further life threatening deterioration of the patient 's condition and/or to evalute & treat vital organ system(s) failure or risk of failure.
[2017-03-19] MEDS ORDERED: CHLORHEXIDINE GLUCONATE 4% CLEANSER FOR DECOLONIZATION TP SCH (22:00)
[2017-03-20] MEDS: PIPERACILLIN/TAZOB 3.375 GM 50 ML IVPB SCH ×3 (02:55→17:39)
[2017-03-20 06:26] LABS: BASOPHIL 0.3 % (0-2.0); EOSINOPHIL 3.1 % (0-4.5); MCHC 32.7 g/dl (32.0-35.9); MEAN CELL VOLUME 85.7 fl (80-96); MEAN PLT VOLUME 8.9 fl (7.5-11.1); NEUTROPHILS 77.9 % (42.8-82.8); PLATELET COUNT 183 K/MM3 (134-434); RDW 17.1 % (11.9-15.9); WHITE BLOOD COUNT 6.8 K/mm3 (4.0-10.0)
[2017-03-20 06:53] LABS: ALBUMIN 2.4 g/dl (3.4-5.0); ANION GAP 8 (8-16); CALCIUM 8.5 mg/dL (8.5-10.1); CO2 29 mmol/L (21-32); GLUCOSE,RANDOM 118 mg/dL (74-106)
[2017-03-20 06:57] LABS: ALK PHOS 63 U/L (45-117); BILIRUBIN,TOTAL 0.5 mg/dL (0.2-1.0); COCKROFT - GAULT 69.78; CREATININE 0.8 mg/dL (0.7-1.3); SGOT/AST 10 U/L (15-37); SGPT/ALT 12 U/L (12-78)
--- NOTE | 2017-03-20 07:36 | PN ---
Physical Exam: SUBJECTIVE: Patient seen and examined. no complaints. slept well, had good appetite. denies chest pain, fevers, cough, sob. luong removed this morning. OBJECTIVE: Vital Signs Period Temp Pulse Resp BP Sys/[place] Pulse Ox Last 24 Hr 97.9 F-98.5 F 78-98 14-22 92-156/53-92 97-97 GENERAL: The patient is awake, alert, and person/place/date/president, in no acute distress. EYES: PERRL, extraocular movements intact, sclera anicteric, conjunctiva clear. No ptosis. ENT:oropharynx clear without exudates, moist mucous membranes. LUNGS: Breath sounds equal, clear to auscultation bilaterally, no wheezes, no crackles, no accessory muscle use. HEART: Regular rate and rhythm, S1, S2 without murmur, rub or gallop. ABDOMEN: Soft, nontender, nondistended, normoactive bowel sounds, no guarding EXTREMITIES: 2+ radial/DPpulses, Right lower leg with erythema and warmer than left leg- no edema/swelling/ pruritis, no calf tenderness. Right medial groin with two ulcers with scant blood in the center, no discharge or surrounding erythema, no underlying fluctuance palpable Left lower leg without erythema/edema, foot wrapped in dressing CDI. Laboratory Results - last 24 hr 03/20/17 03/20/17 05:15 05:15 WBC 6.8 RBC 4.22 Hgb 11.8 Hct 36.2 MCV 85.7 MCHC 32.7 RDW 17.1 H Plt Count 183 MPV 8.9 Neutrophils % 77.9 Lymphocytes % 10.8 Monocytes % 7.9 Eosinophils % 3.1 Basophils % 0.3 Sodium 145 Potassium 4.1 Chloride 108 H Carbon Dioxide 29 Anion Gap 8 BUN 12 Creatinine 0.8 Creat Clearance w eGFR > 60 Random Glucose 118 H D Calcium 8.5 Total Bilirubin 0.5 D AST 10 L ALT 12 D Alkaline Phosphatase 63 Total Protein 6.0 L Albumin 2.4 L Active Medications Generic Name Dose Route Start Last Admin Trade Name Freq PRN Reason Stop Dose Admin Acetaminophen 650 mg 03/19/17 19:43 Tylenol - PO Q4H PRN FEVER OR PAIN Amino Acids 30 ml 03/19/17 17:30 03/19/17 18:47 Prosource No Carb Liquid Pkt PO 30 ml BID@0800,1730 [facility] Administration Apixaban 5 mg 03/20/17 10:00 Eliquis - PO DAILY [facility] Chlorhexidine Gluconate 1 applic 03/19/17 22:00 03/19/17 21:42 Hibiclens For Decolonization - TP 1 applic HS [facility] Administration Folic Acid 1 mg 03/20/17 10:00 Folic Acid - PO DAILY [facility] Piperacillin Sod/Tazobactam Sod 50 mls @ 100 mls/hr 03/18/17 13:00 03/20/17 02: 55 Zosyn 3.375gm Ivpb (Pre-Docked) IVPB 100 mls/hr Q8H-IV [facility] Administration Protocol Multivitamins/Minerals/Vitamin C 1 tab 03/19/17 13:45 03/19/17 18:55 Tab-A-Vit - PO 1 tab DAILY [facility] Administration Mupirocin 1 applic 03/20/17 09:00 Bactroban 2% Ointment - TP BID [facility] Mupirocin 1 applic 03/19/17 22:00 03/19/17 21:42 Bactroban Ointment (For Decolonization) - NS 03/23/17 09:59 1 applic BID [facility] Administration Ranitidine HCl 150 mg 03/19/17 10:00 03/19/17 21:42 Zantac Oral Solution - PO 150 mg BID [facility] Administration Sertraline HCl 50 mg 03/20/17 10:00 Zoloft - PO DAILY [facility] ASSESSMENT/PLAN: 86 yr old man with hx of bladder ca, nephrolithiasis, dementia, DVT/PE, HTN, bibems from home due to witnessed mechanical fall during transfer, fever and AMS found to have sepsis from UTI or cellulitis of toe as source. Infectious Disease sepsis secondary to UTI or cellulitis of left toe zosyn IVpB q8hr - start 03/18 Dr. Mendez completed bedside I&D with nail evulsion for acute lizet yesterday afternoon with wound cx sent urine with psuedomonas, bld cx pending for MRI of the foot to r/o osteomyelitis Renal DARELL, resolved trail void today, pt with incontinence. Urology dr. núñez consulted for complicated UTI, hx of bladder ca and nephrolithiasis, no urological interventions needed at this time, no obstructing stones and hematuria. Dermatological Ulcer in right groin likely pressure induced, apply mupirocin dialy Neurological at baseline pt has dementia, currently alert and oriented to person/place/time zoloft 50mg po daily Cardiovascular duplex of right leg negative for DVT, monitor for worsening of erythema/ possible cellulitis, patient already on abx GI Zantac for porphylaxis MVI, prosource and folic acid supplementation to improve nutritional status DVT eliquis 5 mg po daily Diet: sodium controlled Dispo: can be monitored on med/surg floor. Visit type - Emergency Visit Emergency Visit: No - New Patient This patient is new to me today: No - Critical Care Critical Care patient: Yes Total Critical Care Time (in minutes): 37 Critical Care Statement: The care of this patient involved high complexity decision making to prevent further life threatening deterioration of the patient 's condition and/or to evalute & treat vital organ system(s) failure or risk of failure.
[2017-03-20] MEDS ORDERED: PT OWN MED DRAWER 7, Y5N ONE (09:13)
[2017-03-20] MEDS: MULTIVITAMINS (DAILY MVI) TABLET (FP) PO SCH (09:17)
[2017-03-20] MEDS: AMINO ACIDS/PROTEIN HYDROLYS 30 ML LIQUID.PKT PO SCH ×2 (09:17→17:39)
[2017-03-20] MEDS: RANITIDINE HCL 150 MG/10 ML UNIT-DOSE CUP PO SCH ×2 (09:17→21:40)
[2017-03-20] MEDS: MUPIROCIN 2% TOPICAL OINTMENT 22 GM TUBE TP SCH ×3 (09:18→21:40)
[2017-03-20] MEDS: MUPIROCIN 2% TOPICAL OINTMENT FOR DECOLONIZATION NS SCH (09:19)
[2017-03-20] MEDS ORDERED: SERTRALINE HCL 50 MG TABLET (FP) PO SCH (10:00)
[2017-03-20] MEDS ORDERED: FOLIC ACID 1 MG TABLET (FP) PO SCH (10:00)
[2017-03-20] MEDS ORDERED: APIXABAN 5 MG TABLET PO SCH (10:00)
--- NOTE | 2017-03-20 10:21 | CONS ---
DATE OF CONSULTATION: 03/19/2017 PRESENTING PROBLEM: Patient who was admitted with sepsis has been complaining of a painful left great toe with erythema and local gigantism. There is a concern for possible infection. SIGNIFICANT PAST AND PRESENT MEDICAL HISTORY: Significant for acute kidney injury, carcinoma of the bladder, renal calculi. The patient was admitted for sepsis, chronic hypertension and right renal ureteral calculus. ACTIVE MEDICATIONS: Include acetaminophen, amino acids, Eliquis, folic acid, multivitamins. The patient is currently on intravenous Zosyn and on oral ranitidine and sertraline for major depressive order. ALLERGIC HISTORY: No known drug allergies. SOCIAL HISTORY: The patient denies alcohol use, substance abuse, and has never smoked. CLINICAL EXAMINATION: General: The patient is resting in the intensive care unit, comfortable, stating that he is ready to "go home." Extremities: Examination of the lower limbs reveals palpable pedal pulses. The patient has a cavus foot type with clawing of all of the digits including the great toe. Radiographs ordered by this examiner tricked this examiner thinking that there may have been a proximal phalangeal base fracture, but it was actually a dislocation of the distal on the proximal phalanx and from the clawing of all the digits of the metatarsophalangeal articulations. Examination of the left great toe reveals a significant amount of tenderness at the proximal nail fold. There is mild local gigantism. The periungual region shows a degree of dry hemorrhage. According to the medical record, the patient recently had a nail debridement, but the patient states he has not seen a grain receiver in "months," so it is unclear if the patient had a recent nail debridement. After probing the proximal nail fold, it was revealed that there was subungual purulence. ASSESSMENT: Abscess of the left great toe, secondary to paronychia/lizet. PLAN: 5cc 2% lidocaine Local infiltration of the left great toe was performed and an incision and drainage (complicated as it included nail avulsion) was performed bedside. Culture obtained The patient may need further wound care whilst an inpatient and will continue to follow the patient. DR SEGUN IVY RT/[id number] MTDD
--- NOTE | 2017-03-20 11:51 | MSN ---
Progress Note (short form) - Note Progress Note: Subjective: Patient was seen by me at the bedside. patient was alert and oriented and able to answer questions. He described himself as feeling better today than previous days. The patient is still having trouble recalling why he is in the hospital but knows that he is at [facility] in [place]. Patient stated that he is feeling tired today but denies any increased lethargy from baseline. Patient is tolerating his diet without incidence and having no trouble urinating and defecating regularly. Patient denies any pain in his left infected big toe. Patient also denies any fever, chills, nauseas, vomiting, chest pain, shortness of breath or headache. Vital Signs Period Temp Pulse Resp BP Sys/Austin Pulse Ox Last 24 Hr 97.9 F-98.5 F 80-98 14-22 92-156/53-92 97 Exam: General: alert and oriented in no acute distress. Heart: regular rate and rhythm normal S1 and S2, with no murmurs, rubs or gallops. Lungs: Lungs are clear to auscultation bilaterally in all lung gutierrez. Extremities: 4/5 muscle strength and 2/4 pulses in all extremities with intact sensation. His left foot was wrapped and showed bleeding soaking through the dressing. No edema or swelling is present at this time. Abdomen: normoactive bowel sounds, no guarding distention, no tenderness to palpation in any of the four quadrants. Laboratory Results - last 24 hr 03/20/17 03/20/17 05:15 05:15 WBC 6.8 RBC 4.22 Hgb 11.8 Hct 36.2 MCV 85.7 MCHC 32.7 RDW 17.1 H Plt Count 183 MPV 8.9 Neutrophils % 77.9 Lymphocytes % 10.8 Monocytes % 7.9 Eosinophils % 3.1 Basophils % 0.3 Sodium 145 Potassium 4.1 Chloride 108 H Carbon Dioxide 29 Anion Gap 8 BUN 12 Creatinine 0.8 Creat Clearance w eGFR > 60 Random Glucose 118 H D Calcium 8.5 Total Bilirubin 0.5 D AST 10 L ALT 12 D Alkaline Phosphatase 63 Total Protein 6.0 L Albumin 2.4 L Current Medications Generic Name Dose Route Start Last Admin Trade Name Freq PRN Reason Stop Dose Admin Acetaminophen 650 mg 03/19/17 19:43 Tylenol - PO Q4H PRN FEVER OR PAIN Amino Acids 30 ml 03/19/17 17:30 03/20/17 09:17 Prosource No Carb Liquid Pkt PO 30 ml BID@0800,1730 CARLOS Administration Apixaban 5 mg 03/20/17 10:00 03/20/17 09:17 Eliquis - PO 5 mg DAILY CARLOS Administration Chlorhexidine Gluconate 1 applic 03/19/17 22:00 03/19/17 21:42 Hibiclens For Decolonization - TP 1 applic HS CARLOS Administration Folic Acid 1 mg 03/20/17 10:00 03/20/17 09:17 Folic Acid - PO 1 mg DAILY CARLOS Administration Piperacillin Sod/Tazobactam Sod 50 mls @ 100 mls/hr 03/18/17 13:00 03/20/17 09: 18 Zosyn 3.375gm Ivpb (Pre-Docked) IVPB 100 mls/hr Q8H-IV CARLOS Administration Protocol Multivitamins/Minerals/Vitamin C 1 tab 03/19/17 13:45 03/20/17 09:17 Tab-A-Vit - PO 1 tab DAILY CARLOS Administration Mupirocin 1 applic 03/20/17 09:00 03/20/17 09:19 Bactroban 2% Ointment - TP Not Given BID CARLOS Mupirocin 1 applic 03/19/17 22:00 03/20/17 09:19 Bactroban Ointment (For Decolonization) - NS 03/23/17 09:59 1 applic BID CARLOS Administration Ranitidine HCl 150 mg 03/19/17 10:00 03/20/17 09:17 Zantac Oral Solution - PO 150 mg BID CARLOS Administration Sertraline HCl 50 mg 03/20/17 10:00 03/20/17 09:18 Zoloft - PO 50 mg DAILY CARLOS Administration Imaging- Head CT (03/18/17)- no evidence of acute intracranial pathology Abdominal/Pelvic CT (03/18/17)- 5mm nonobstructing left renal stone. Questionable 1mm proximal right ureteral stone. 9.8 cm exophytic left upper renal pole cyst Foot Xray (03/19/17)- showed aisha deformity and osteopenia but inconclusive for osteomyolitis. Possible MRI to follow. Assessment and Plan- Patient is an 86 year old man with past medical history of dementia, DVT, PE, bladder cancer, kidney stones, who presented to the ER with lethargy and fever who was admitted for sepsis secondary to UTI. Sepsis secondary to UTI or Cellulitis - resolved - Zosyn 3.375 gm, 50mls @ 100mls/hr (day 3) - acetaminophen 650 mg PO q 4hr PRN, for pain or fever - Urine culture positive for psuedomonas - blood culture positive for gram positive bacilli Cellulitis of the left first toe - awaiting result of gram stain and culture - foot x-ray inconclusive for ostyeomyolitis - awaiting SED rate result, if elevated continue with MRI to rule out osteomyolitis Altered mental Status secondary to sepsis - resolved - continue to monitor past HX of Kidney Stone - consult urology Hypertension - restart metoprolol 25mg PO due to resolution of hypotension DVT - apixiban 5mg PO daily F/E/N -regular diet - no IVF indicated Dispo -awaiting bed to transfer from ICU to floor.
--- NOTE | 2017-03-20 12:24 | PN ---
Physical Exam: SUBJECTIVE: Patient seen and examined in the ICU at bedside. No acute event noted overnight. Cont. to deny fever, chills, n/v, chest pain, sob, urinary or bowel symptoms. OBJECTIVE: Vital Signs Period Temp Pulse Resp BP Sys/Austin Pulse Ox Last 24 Hr 97.9 F-98.5 F 80-98 14-22 92-156/53-92 97 GENERAL: AAO x 3, mildly demented but at baseline, in no acute distress. EYES: PERRLA ENT: oropharynx clear without exudates, moist mucous membranes. LUNGS: CTAB HEART: RRR, S1, S2 without murmur, rub or gallop. ABDOMEN: Soft, nontender, nondistended, normoactive bowel sounds, no guarding, no rebound, no hepatosplenomegaly, no masses. EXTREMITIES: +2 symmetric peripheral pulses in LE bilaterally, +1 bilateral peripheral edema; L toe dressing in place, purulent discharge SKIN: Stage 1 decubitus ulcer in L groin CBCD WBC 6.8 K/mm3 (4.0-10.0) 03/20/17 05:15 RBC 4.22 M/mm3 (4.00-5.60) 03/20/17 05:15 Hgb 11.8 GM/dL (11.7-16.9) 03/20/17 05:15 Hct 36.2 % (35.4-49) 03/20/17 05:15 MCV 85.7 fl (80-96) 03/20/17 05:15 MCHC 32.7 g/dl (32.0-35.9) 03/20/17 05:15 RDW 17.1 % (11.9-15.9) H 03/20/17 05:15 Plt Count 183 K/MM3 (134-434) 03/20/17 05:15 MPV 8.9 fl (7.5-11.1) 03/20/17 05:15 CMP Sodium 145 mmol/L (136-145) 03/20/17 05:15 Potassium 4.1 mmol/L (3.5-5.1) 03/20/17 05:15 Chloride 108 mmol/L (98-107) H 03/20/17 05:15 Carbon Dioxide 29 mmol/L (21-32) 06/13/17 05:15 Anion Gap 8 (8-16) 03/20/17 05:15 BUN 12 mg/dL (7-18) 03/20/17 05:15 Creatinine 0.8 mg/dL (0.7-1.3) 03/20/17 05:15 Creat Clearance w eGFR > 60 (>60) 03/20/17 05:15 Calcium 8.5 mg/dL (8.5-10.1) 03/20/17 05:15 Total Bilirubin 0.5 mg/dL (0.2-1.0) D 03/20/17 05:15 AST 10 U/L (15-37) L 03/20/17 05:15 ALT 12 U/L (12-78) D 03/20/17 05:15 Alkaline Phosphatase 63 U/L (45-117) 03/20/17 05:15 Total Protein 6.0 g/dl (6.4-8.2) L 03/20/17 05:15 Albumin 2.4 g/dl (3.4-5.0) L 03/20/17 05:15 Active Medications Generic Name Dose Route Start Last Admin Trade Name Freq PRN Reason Stop Dose Admin Acetaminophen 650 mg 03/19/17 19:43 Tylenol - PO Q4H PRN FEVER OR PAIN Amino Acids 30 ml 03/19/17 17:30 03/20/17 09:17 Prosource No Carb Liquid Pkt PO 30 ml BID@0800,1730 CARLOS Administration Apixaban 5 mg 03/20/17 10:00 03/20/17 09:17 Eliquis - PO 5 mg DAILY CARLOS Administration Chlorhexidine Gluconate 1 applic 03/19/17 22:00 03/19/17 21:42 Hibiclens For Decolonization - TP 1 applic HS CARLOS Administration Folic Acid 1 mg 03/20/17 10:00 03/20/17 09:17 Folic Acid - PO 1 mg DAILY CARLOS Administration Piperacillin Sod/Tazobactam Sod 50 mls @ 100 mls/hr 03/18/17 13:00 03/20/17 09: 18 Zosyn 3.375gm Ivpb (Pre-Docked) IVPB 100 mls/hr Q8H-IV CARLOS Administration Protocol Multivitamins/Minerals/Vitamin C 1 tab 03/19/17 13:45 03/20/17 09:17 Tab-A-Vit - PO 1 tab DAILY CARLOS Administration Mupirocin 1 applic 03/20/17 09:00 03/20/17 09:19 Bactroban 2% Ointment - TP Not Given BID CARLOS Mupirocin 1 applic 03/19/17 22:00 03/20/17 09:19 Bactroban Ointment (For Decolonization) - NS 03/23/17 09:59 1 applic BID CARLOS Administration Ranitidine HCl 150 mg 03/19/17 10:00 03/20/17 09:17 Zantac Oral Solution - PO 150 mg BID CARLOS Administration Sertraline HCl 50 mg 03/20/17 10:00 03/20/17 09:18 Zoloft - PO 50 mg DAILY CARLOS Administration IMAGING Foot X-ray on 03/18: inclusive for osteomyelitis Chest/Abd/Pelvis CT on 03/18: Cystitis, mild diverticulitis, gall stones, IVC filter in place, ankylosing spondylitis, sliding hiatal hernia, enlarged prostate, 5mm non-obstructing renal stone, questionable R kidney stone about 1mm , bilateral renal cysts, no acute pulmonary pathology. Head CT on 03/18: no acute finding Chest X-ray on 03/18: no acute finding ASSESSMENT/PLAN: 86 yo M h/o mild dementia, DVT and PE on eliquis, bladder cancer, diverticulosis , HTN, kidney cysts and stones admitted to the ICU for sepsis. ID: sepsis - Resolved - Likely 2/2 UTI and paronychia or sacral ulcer, less likely diverticulitis * s/p nail avulsion and bedside I&D of L great toe * pending urine growing pseudomonas and blood cultures growing suspected contaminant * f/u on ESR and CRP * May need MRI to confirm osteomyelitis - Cont. prophylactic zosyn 3.375g Q8H (day 3) Neuro: acute toxic metabolic encephalopathy - Resolved - Likely 2/2 sepsis Renal: HTN, nephrolithiasis and cysts - Restart toprol - Bilateral cysts and non-obstructing stones on CT * No hydronephrosis * d/c Moyer today * No intervention per urology HemOnc: hypercoagulable state h/o bladder CA, DVT and PE - IVC filter identified on CT - Cont. eliquis 5mg PO daily FEN - IVF not indicated - Cont. to monitor lytes - Na+ controlled diet + prosource + multivitamin Prophylaxis - DVT: on eliquis - GI: not indicated Dispo - Transfer to floors - Awaiting cultures and MRI Code status - Full Visit type - Emergency Visit Emergency Visit: No - New Patient This patient is new to me today: No - Critical Care Critical Care patient: No - Discharge Referral Referred to [facility] Med P.C.: No
[2017-03-20] MEDS ORDERED: METOPROLOL SUCCINATE 25 MG TAB.SR.24H (FP) PO SCH (12:30)
[2017-03-20 12:47] LABS: C-REACTIVE PROTEIN 8.3 MG/DL (0.00-0.3)
--- NOTE | 2017-03-20 12:48 | PN ---
Teaching Attending Note Name of Resident: Ghulam Hernandez ATTENDING PHYSICIAN STATEMENT I saw and evaluated the patient. I reviewed the resident's note and discussed the case with the resident. I agree with the resident's findings and plan as documented. SUBJECTIVE: Pt seen and examined in the ICU. No further fevers. Denies shortness of breath or chest pain. OBJECTIVE: Last Vital Signs Temp Pulse Resp BP Pulse Ox 97.9 F 90 17 124/80 97 03/20/17 06:00 03/20/17 10:00 03/20/17 10:00 03/20/17 10:00 03/19/17 20:31 Intake & Output 03/17/17 03/18/17 03/19/17 03/20/17 23:59 23:59 23:59 23:59 Intake Total 6520 500 500 Output Total 2000 700 2000 Balance 4520 -200 -1500 Weight 160 lb 164 lb 1.6 oz Gen: NAD at rest Heart: RRR Lung: decreased breath sounds at the bases Abd: soft, nontender Ext: no edema CBC, BMP 03/20/17 05:15 03/20/17 05:15 Active Medications Acetaminophen (Tylenol -) 650 mg PO Q4H PRN PRN Reason: FEVER OR PAIN Amino Acids (Prosource No Carb Liquid Pkt) 30 ml PO BID@0800,1730 [facility] Last Admin: 03/20/17 09:17 Dose: 30 ml Apixaban (Eliquis -) 5 mg PO DAILY [facility] Last Admin: 03/20/17 09:17 Dose: 5 mg Chlorhexidine Gluconate (Hibiclens For Decolonization -) 1 applic TP HS [facility] Last Admin: 03/19/17 21:42 Dose: 1 applic Folic Acid (Folic Acid -) 1 mg PO DAILY [facility] Last Admin: 03/20/17 09:17 Dose: 1 mg Piperacillin Sod/Tazobactam Sod (Zosyn 3.375gm Ivpb (Pre-Docked)) 50 mls @ 100 mls/hr IVPB Q8H-IV CARLOS PRN Reason: Protocol Last Admin: 03/20/17 09:18 Dose: 100 mls/hr Metoprolol Succinate (Toprol Xl -) 25 mg PO BID [facility] Multivitamins/Minerals/Vitamin C (Tab-A-Vit -) 1 tab PO DAILY [facility] Last Admin: 03/20/17 09:17 Dose: 1 tab Mupirocin (Bactroban 2% Ointment -) 1 applic TP BID [facility] Last Admin: 03/20/17 09:19 Dose: Not Given Mupirocin (Bactroban Ointment (For Decolonization) -) 1 applic NS BID [facility] Stop: 03/23/17 09:59 Last Admin: 03/20/17 09:19 Dose: 1 applic Ranitidine HCl (Zantac Oral Solution -) 150 mg PO BID [facility] Last Admin: 03/20/17 09:17 Dose: 150 mg Sertraline HCl (Zoloft -) 50 mg PO DAILY [facility] Last Admin: 03/20/17 09:18 Dose: 50 mg ASSESSMENT AND PLAN: UTI Sepsis resolving Acute Kidney Injury improving Bladder CA h/o DVT/PE Dementia - continue antibiotics - f/u cultures - tolerating PO, monitor off IVF - monitor urine output, creatinine - continue anticoagulation - can monitor on floor
--- NOTE | 2017-03-20 13:32 | PN ---
Teaching Attending Note Name of Resident: Jakub Loyola ATTENDING PHYSICIAN STATEMENT I saw and evaluated the patient. I reviewed the resident's note and discussed the case with the resident. I agree with the resident's findings and plan as documented. SUBJECTIVE:asymptomatic. no pain in foot. denies CP, SOB,fever, chills, N/V/C/D OBJECTIVE: Last Vital Signs Temp Pulse Resp BP Pulse Ox 97.9 F 90 20 120/76 98 03/20/17 10:00 03/20/17 12:00 03/20/17 12:00 03/20/17 12:00 03/20/17 09:00 General NAD A&Ox3 CV S1 S2 RRR no murmur/rub/gallop Lungs CTA B/L no wheezing/rales/rhonchi Abdomen soft NT/ND Extremities L 1st toe with nail removed, blood and pus drainage from superior R of nail bed. mildly tender pulse 2+ ASSESSMENT AND PLAN: 86 yo M with PMH dementia, DVT/PE, bladder cancer, HTN, kidney stones, who presented to the ER with lethargy, fever and confusion. 1. Sepsis secondary to UTI and paronychia of L 1st toe- s/p I&D and toenail removal 03/19 by podiatry. sepsis with lactic acidosis resolved. XR of the foot with questionable OM. since infection seems to be limited to toenail. ESR/CRP pending. may need MRI to further evaluate. UCx with pseudomonas and possible organism in BCx. repeat BCx pending. f/u Cx sent by podiatry. on ZOsyn day 3. ID and podiatry on board. 2. Acute metabolic encephalopathy secondary to sepsis- resolved. appears to be at baseline mental status 3. Bilateral renal/ureteral stones 4. Bilateral renal cysts 5. HTN-now above goal. re-start home antihypertensives. 6. Dementia 7. Bladder cancer 8. 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 Right groin wound-refused to have me evaluate. cont local wound care 10. DVT ppx- eliquis 11. stable for transfer to medical floors.
--- NOTE | 2017-03-20 13:56 | OP ---
DATE OF OPERATION:03/19/2017 DATE OF DICTATION: 03/19/2017 PROCEDURE: Complicated incision and drainage of a cutaneous infection. PREOPERATIVE DIAGNOSIS: Acute paronychia/lizet. POSTOPERATIVE DIAGNOSIS: Acute paronychia/lizet. ANESTHESIA: Lidocaine 5 mL local infiltration. SURGEON: Dr Segun Mendez NARRATIVE: After prepping the patient in usual manner, the left great toe was exsanguinated using a blood-drawing tourniquet, and a tourniquet was placed at the base of the left great toe. The nail plate was from the nailbed and avulsed. An incision was then made at the proximal nail fold which exhibited mild suppuration and was drained. The tourniquet then was removed, and a Betadine sterile dressing was then applied. Further debridements may be needed. SEGUN MENDEZ DPM RT/[id number] MTDD
--- NOTE | 2017-03-20 14:11 | PN ---
Progress Note, Physician History of Present Illness: stable no new issues comfortable - Current Medication List Current Medications: Active Medications Acetaminophen (Tylenol -) 650 mg PO Q4H PRN PRN Reason: FEVER OR PAIN Amino Acids (Prosource No Carb Liquid Pkt) 30 ml PO BID@0800,1730 [facility] Last Admin: 03/20/17 09:17 Dose: 30 ml Apixaban (Eliquis -) 5 mg PO DAILY [facility] Last Admin: 03/20/17 09:17 Dose: 5 mg Chlorhexidine Gluconate (Hibiclens For Decolonization -) 1 applic TP HS [facility] Last Admin: 03/19/17 21:42 Dose: 1 applic Folic Acid (Folic Acid -) 1 mg PO DAILY [facility] Last Admin: 03/20/17 09:17 Dose: 1 mg Piperacillin Sod/Tazobactam Sod (Zosyn 3.375gm Ivpb (Pre-Docked)) 50 mls @ 100 mls/hr IVPB Q8H-IV [facility] PRN Reason: Protocol Last Admin: 03/20/17 09:18 Dose: 100 mls/hr Metoprolol Succinate (Toprol Xl -) 25 mg PO BID [facility] Multivitamins/Minerals/Vitamin C (Tab-A-Vit -) 1 tab PO DAILY [facility] Last Admin: 03/20/17 09:17 Dose: 1 tab Mupirocin (Bactroban 2% Ointment -) 1 applic TP BID [facility] Last Admin: 03/20/17 09:19 Dose: Not Given Mupirocin (Bactroban Ointment (For Decolonization) -) 1 applic NS BID [facility] Stop: 03/23/17 09:59 Last Admin: 03/20/17 09:19 Dose: 1 applic Ranitidine HCl (Zantac Oral Solution -) 150 mg PO BID [facility] Last Admin: 03/20/17 09:17 Dose: 150 mg Sertraline HCl (Zoloft -) 50 mg PO DAILY [facility] Last Admin: 03/20/17 09:18 Dose: 50 mg - Objective Vital Signs: Vital Signs Temperature 97.9 F 03/20/17 10:00 Pulse Rate 90 03/20/17 12:00 Respiratory Rate 20 03/20/17 12:00 Blood Pressure 120/76 03/20/17 12:00 O2 Sat by Pulse Oximetry (%) 98 03/20/17 09:00 Constitutional: Yes: No Distress, Calm HENT: Yes: Atraumatic Cardiovascular: Yes: Regular Rate and Rhythm Respiratory: Yes: Regular, CTA Bilaterally Gastrointestinal: Yes: Normal Bowel Sounds, Soft Musculoskeletal: Yes: Other Extremities: Yes: Other Wound/Incision: Yes: Dressing Dry and Intact Neurological: Yes: Alert, Oriented Psychiatric: Yes: Alert Labs: CBC, BMP 03/20/17 05:15 03/20/17 05:15 INR, PTT INR 1.75 (0.82-1.09) H 03/17/17 23:50 Assessment/Plan Problem List - Problems (1) DARELL (acute kidney injury) Code(s): N17.9 - ACUTE KIDNEY FAILURE, UNSPECIFIED (2) Sepsis Code(s): A41.9 - SEPSIS, UNSPECIFIED ORGANISM Qualifiers: Sepsis type: sepsis due to unspecified organism Qualified Code(s): A41.9 - Sepsis, unspecified organism (5) Hypertension Code(s): I10 - ESSENTIAL (PRIMARY) HYPERTENSION (6) Renal calculi Code(s): N20.0 - CALCULUS OF KIDNEY 7 uti pseudomonas 8 leukocytosis plan continue zosyn will repeat blood cx continue monitoring rest as per icu/primary await for wound cx to be back repeat blood cx is negative cc tim40 min
[2017-03-20] MEDS ORDERED: ACETAMINOPHEN 325 MG TABLET (FP) PO PRN (19:16)
[2017-03-20] MEDS: METOPROLOL SUCCINATE 25 MG TAB.SR.24H (FP) PO SCH (21:40)
[2017-03-20] MEDS ORDERED: CHLORHEXIDINE GLUCONATE 4% CLEANSER FOR DECOLONIZATION TP SCH (22:00)
[2017-03-20] MEDS ORDERED: MUPIROCIN 2% TOPICAL OINTMENT FOR DECOLONIZATION NS SCH (22:00)
[2017-03-21] MEDS: PIPERACILLIN/TAZOB 3.375 GM 50 ML IVPB SCH ×3 (03:45→17:17)
[2017-03-21] MEDS ORDERED: PT OWN MED DRAWER 7, Y5N ONE (09:55)
[2017-03-21] MEDS: AMINO ACIDS/PROTEIN HYDROLYS 30 ML LIQUID.PKT PO SCH ×2 (10:00→17:17)
[2017-03-21] MEDS: FOLIC ACID 1 MG TABLET (FP) PO SCH (10:01)
[2017-03-21] MEDS: METOPROLOL SUCCINATE 25 MG TAB.SR.24H (FP) PO SCH ×2 (10:01→22:39)
[2017-03-21] MEDS: RANITIDINE HCL 150 MG/10 ML UNIT-DOSE CUP PO SCH ×2 (10:01→22:39)
[2017-03-21] MEDS: APIXABAN 5 MG TABLET PO SCH (10:01)
[2017-03-21] MEDS: SERTRALINE HCL 50 MG TABLET (FP) PO SCH (10:01)
[2017-03-21] MEDS: MULTIVITAMINS (DAILY MVI) TABLET (FP) PO SCH (10:11)
--- NOTE | 2017-03-21 11:29 | MSN ---
Progress Note (short form) - Note Progress Note: Subjective: Stated that he is continuing to feel good. When assessing his mental status he knows he is at [facility] but is still unaware of why he is in the hospital. This is unchanged from his baseline and is otherwise alert and oriented and able to answer questions. Patient denies any pain in his left first toe. Patient is able to tolerate his solid an liquid diet without incidence and is urinating and defecating regularly. Patient denies any fever, chills, nausea, vomiting, chest pain, SOB, or headache. Vital Signs Period Temp Pulse Resp BP Sys/Austin Pulse Ox Last 24 Hr 97.3 F-98.1 F 68-93 17-20 102-126/63-84 98 Exam- General- alert and oriented in no acute distress Heart- regular rate and rhythm, normal s1 and s2, with no murmur rubs or gallops. Lungs- Clear to auscultation bilaterally in all gutierrez Extremities- 4/5 muscle strength and 2/4 pulses in all extremities with intact sensation. no swelling or edema. bandaging on left big toe is secured and there draining through the bandaging. Abdomen- no guarding or distention. normoactive bowels sounds and no tenderness to palpation in any of the four quadrants. Laboratory Results - last 24 hr 03/20/17 03/20/17 05:15 12:33 ESR 40 H C-Reactive Protein 8.3 H Current Medications Generic Name Dose Route Start Last Admin Trade Name Freq PRN Reason Stop Dose Admin Acetaminophen 650 mg 03/20/17 19:16 03/20/17 21:41 Tylenol - PO 650 mg Q4H PRN Administration FEVER OR PAIN Amino Acids 30 ml 03/21/17 08:00 03/21/17 10:00 Prosource No Carb Liquid Pkt PO 30 ml BID@0800,1730 CARLOS Administration Apixaban 5 mg 03/21/17 10:00 03/21/17 10:01 Eliquis - PO 5 mg DAILY CARLOS Administration Folic Acid 1 mg 03/21/17 10:00 03/21/17 10:01 Folic Acid - PO 1 mg DAILY CARLOS Administration Piperacillin Sod/Tazobactam Sod 50 mls @ 100 mls/hr 03/21/17 02:00 03/21/17 10: 01 Zosyn 3.375gm Ivpb (Pre-Docked) IVPB 100 mls/hr Q8H-IV CARLOS Administration Protocol Metoprolol Succinate 25 mg 03/20/17 22:00 03/21/17 10:01 Toprol Xl - PO 25 mg BID CARLOS Administration Multivitamins/Minerals/Vitamin C 1 tab 03/21/17 10:00 03/21/17 10:11 Tab-A-Vit - PO 1 tab DAILY CARLOS Administration Mupirocin 1 applic 03/20/17 22:00 03/20/17 21:40 Bactroban 2% Ointment - TP 1 applic BID CARLOS Administration Ranitidine HCl 150 mg 03/20/17 22:00 03/21/17 10:01 Zantac Oral Solution - PO 150 mg BID CARLOS Administration Sertraline HCl 50 mg 03/21/17 10:00 03/21/17 10:01 Zoloft - PO 50 mg DAILY CARLOS Administration Imaging- Head CT (03/18/17)- no evidence of acute intracranial pathology Abdominal/Pelvic CT (03/18/17)- 5mm nonobstructing left renal stone. Questionable 1mm proximal right ureteral stone. 9.8 cm exophytic left upper renal pole cyst Foot Xray (03/19/17)- showed asiha deformity and osteopenia but inconclusive for osteomyolitis. Bone Scan of left foot (03/21/17)- ordered to rule out osteomylitis. Assessment and Plan- Patient is an 86 year old man with past medical history of dementia, DVT, PE, bladder cancer, kidney stones, who presented to the ER with lethargy and fever who was admitted for sepsis secondary to UTI. Sepsis secondary to UTI or Cellulitis - resolved - Zosyn 3.375 gm, 50mls @ 100mls/hr (day 4) - acetaminophen 650 mg PO q 4hr PRN, for pain or fever - Urine culture positive for psuedomonas - blood culture positive for gram positive bacilli Cellulitis of the left first toe - awaiting result of gram stain and culture - foot x-ray inconclusive for ostyeomyolitis - bone scan ordered to rule out osteomyolitis Altered mental Status secondary to sepsis - resolved - continue to monitor Hypertension - continue metoprolol 25mg PO daily DVT - apixiban 5mg PO daily F/E/N -regular diet -no IVF indicated
--- NOTE | 2017-03-21 12:13 | PN ---
Teaching Attending Note Name of Resident: Jakub Loyola ATTENDING PHYSICIAN STATEMENT I saw and evaluated the patient. I reviewed the resident's note and discussed the case with the resident. I agree with the resident's findings and plan as documented. SUBJECTIVE:asymptomatic. requesting to go home. denies CP, SOB,fever, chills, N/ V/C/D OBJECTIVE: Last Vital Signs Temp Pulse Resp BP Pulse Ox 97.8 F 68 20 112/63 98 03/21/17 08:46 03/21/17 08:46 03/21/17 08:46 03/21/17 08:46 03/20/17 21:00 General NAD A&Ox3 Extremities L 1st toe with nail removed, mildly tender at superior aspect of nail bed. no pus or blood draianage. pulse 2+ ASSESSMENT AND PLAN: 86 yo M with PMH dementia, DVT/PE, bladder cancer, HTN, kidney stones, who presented to the ER with lethargy, fever and confusion. 1. Sepsis secondary to UTI and paronychia of L 1st toe- s/p I&D and toenail removal 03/19 by podiatry. sepsis with lactic acidosis resolved. XR of the foot with questionable OM. unable to obtain MRI due to IVC filter. bone scan pending. will d/w with podiatry and ID about need to further workup. repeat Bcx negative. on Zosyn day 4. 2. Acute metabolic encephalopathy secondary to sepsis- resolved. appears to be at baseline mental status 3. Bilateral renal/ureteral stones 4. Bilateral renal cysts 5. HTN-improved. cont metoprolol 6. Dementia 7. Bladder cancer 8. 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 Right groin wound-refused to have me evaluate. cont local wound care 10. DVT ppx- eliquis
[2017-03-21] MEDS: MUPIROCIN 2% TOPICAL OINTMENT 22 GM TUBE TP SCH ×2 (13:36→22:38)
--- NOTE | 2017-03-21 13:59 | PN ---
Progress Note, Physician History of Present Illness: stable no complaints says he is doing well - Current Medication List Current Medications: Active Medications Acetaminophen (Tylenol -) 650 mg PO Q4H PRN PRN Reason: FEVER OR PAIN Last Admin: 03/20/17 21:41 Dose: 650 mg Amino Acids (Prosource No Carb Liquid Pkt) 30 ml PO BID@0800,1730 [facility] Last Admin: 03/21/17 10:00 Dose: 30 ml Apixaban (Eliquis -) 5 mg PO DAILY [facility] Last Admin: 03/21/17 10:01 Dose: 5 mg Folic Acid (Folic Acid -) 1 mg PO DAILY [facility] Last Admin: 03/21/17 10:01 Dose: 1 mg Piperacillin Sod/Tazobactam Sod (Zosyn 3.375gm Ivpb (Pre-Docked)) 50 mls @ 100 mls/hr IVPB Q8H-IV [facility] PRN Reason: Protocol Last Admin: 03/21/17 10:01 Dose: 100 mls/hr Metoprolol Succinate (Toprol Xl -) 25 mg PO BID [facility] Last Admin: 03/21/17 10:01 Dose: 25 mg Multivitamins/Minerals/Vitamin C (Tab-A-Vit -) 1 tab PO DAILY [facility] Last Admin: 03/21/17 10:11 Dose: 1 tab Mupirocin (Bactroban 2% Ointment -) 1 applic TP BID [facility] Last Admin: 03/21/17 13:36 Dose: 1 applic Ranitidine HCl (Zantac Oral Solution -) 150 mg PO BID [facility] Last Admin: 03/21/17 10:01 Dose: 150 mg Sertraline HCl (Zoloft -) 50 mg PO DAILY [facility] Last Admin: 03/21/17 10:01 Dose: 50 mg - Objective Vital Signs: Vital Signs Temperature 97.8 F 03/21/17 08:46 Pulse Rate 77 03/21/17 12:13 Respiratory Rate 20 03/21/17 08:46 Blood Pressure 112/63 03/21/17 08:46 O2 Sat by Pulse Oximetry (%) 94 L 03/21/17 12:13 Constitutional: Yes: No Distress, Calm Cardiovascular: Yes: Regular Rate and Rhythm Respiratory: Yes: Regular, CTA Bilaterally Gastrointestinal: Yes: Normal Bowel Sounds, Soft Musculoskeletal: Yes: Other Extremities: Yes: Other Wound/Incision: Yes: Other Neurological: Yes: Alert, Oriented Psychiatric: Yes: Alert Labs: CBC, BMP 03/20/17 05:15 03/20/17 05:15 INR, PTT INR 1.75 (0.82-1.09) H 03/17/17 23:50 - ....Imaging X-ray: Report Reviewed, Image Reviewed Assessment/Plan Problem List - Problems (1) DARELL (acute kidney injury) Code(s): N17.9 - ACUTE KIDNEY FAILURE, UNSPECIFIED (2) Sepsis Code(s): A41.9 - SEPSIS, UNSPECIFIED ORGANISM Qualifiers: Sepsis type: sepsis due to unspecified organism Qualified Code(s): A41.9 - Sepsis, unspecified organism (5) Hypertension Code(s): I10 - ESSENTIAL (PRIMARY) HYPERTENSION (6) Renal calculi Code(s): N20.0 - CALCULUS OF KIDNEY 7 uti pseudomonas 8 leukocytosis plan continue zosyn await for wound cx to be back i think we should get a bone scan since we cannot get mri to be on the safe side to r/o mrsa rest continue as per primary once we ahve all results we will make the final decision
--- NOTE | 2017-03-21 16:01 | PN ---
Physical Exam: SUBJECTIVE: No acute event noted overnight. Cont. to deny fever, chills, n/v, chest pain, sob, urinary or bowel symptoms. OBJECTIVE: Vital Signs Period Temp Pulse Resp BP Sys/Austin Pulse Ox Last 24 Hr 97.3 F-98.2 F 68-93 18-20 101-126/63-84 94-98 GENERAL: AAO x 3, mildly demented but at baseline, in no acute distress. EYES: PERRLA ENT: oropharynx clear without exudates, moist mucous membranes. LUNGS: CTAB HEART: RRR, S1, S2 without murmur, rub or gallop. ABDOMEN: Soft, nontender, nondistended, normoactive bowel sounds, no guarding, no rebound, no hepatosplenomegaly, no masses. EXTREMITIES: +2 symmetric peripheral pulses in LE bilaterally, +1 bilateral peripheral edema; L toe dressing in place, purulent discharge SKIN: Stage 1 decubitus ulcer in R groin CBCD WBC 6.8 K/mm3 (4.0-10.0) 03/20/17 05:15 RBC 4.22 M/mm3 (4.00-5.60) 03/20/17 05:15 Hgb 11.8 GM/dL (11.7-16.9) 03/20/17 05:15 Hct 36.2 % (35.4-49) 03/20/17 05:15 MCV 85.7 fl (80-96) 03/20/17 05:15 MCHC 32.7 g/dl (32.0-35.9) 03/20/17 05:15 RDW 17.1 % (11.9-15.9) H 03/20/17 05:15 Plt Count 183 K/MM3 (134-434) 03/20/17 05:15 MPV 8.9 fl (7.5-11.1) 03/20/17 05:15 CMP Sodium 145 mmol/L (136-145) 03/20/17 05:15 Potassium 4.1 mmol/L (3.5-5.1) 03/20/17 05:15 Chloride 108 mmol/L (98-107) H 03/20/17 05:15 Carbon Dioxide 29 mmol/L (21-32) 03/20/17 05:15 Anion Gap 8 (8-16) 03/20/17 05:15 BUN 12 mg/dL (7-18) 03/20/17 05:15 Creatinine 0.8 mg/dL (0.7-1.3) 03/20/17 05:15 Creat Clearance w eGFR > 60 (>60) 03/20/17 05:15 Calcium 8.5 mg/dL (8.5-10.1) 03/20/17 05:15 Total Bilirubin 0.5 mg/dL (0.2-1.0) D 03/20/17 05:15 AST 10 U/L (15-37) L 03/20/17 05:15 ALT 12 U/L (12-78) D 03/20/17 05:15 Alkaline Phosphatase 63 U/L (45-117) 03/20/17 05:15 Total Protein 6.0 g/dl (6.4-8.2) L 03/20/17 05:15 Albumin 2.4 g/dl (3.4-5.0) L 03/20/17 05:15 Intake & Output 03/18/17 03/19/17 03/20/17 03/21/17 23:59 23:59 23:59 23:59 Intake Total 6520 500 1370 50 Output Total 2000 700 2000 Balance 4503 -200 -331 50 Weight 74.435 kg Active Medications Generic Name Dose Route Start Last Admin Trade Name Freq PRN Reason Stop Dose Admin Acetaminophen 650 mg 03/20/17 19:16 03/20/17 21:41 Tylenol - PO 650 mg Q4H PRN Administration FEVER OR PAIN Amino Acids 30 ml 03/21/17 08:00 03/21/17 10:00 Prosource No Carb Liquid Pkt PO 30 ml BID@0800,1730 CARLOS Administration Apixaban 5 mg 03/21/17 10:00 03/21/17 10:01 Eliquis - PO 5 mg DAILY CARLOS Administration Folic Acid 1 mg 03/21/17 10:00 03/21/17 10:01 Folic Acid - PO 1 mg DAILY CARLOS Administration Piperacillin Sod/Tazobactam Sod 50 mls @ 100 mls/hr 03/21/17 02:00 03/21/17 10: 01 Zosyn 3.375gm Ivpb (Pre-Docked) IVPB 100 mls/hr Q8H-IV CARLOS Administration Protocol Metoprolol Succinate 25 mg 03/20/17 22:00 03/21/17 10:01 Toprol Xl - PO 25 mg BID CARLOS Administration Multivitamins/Minerals/Vitamin C 1 tab 03/21/17 10:00 03/21/17 10:11 Tab-A-Vit - PO 1 tab DAILY CARLOS Administration Mupirocin 1 applic 03/20/17 22:00 03/21/17 13:36 Bactroban 2% Ointment - TP 1 applic BID CARLOS Administration Ranitidine HCl 150 mg 03/20/17 22:00 03/21/17 10:01 Zantac Oral Solution - PO 150 mg BID CARLOS Administration Sertraline HCl 50 mg 03/21/17 10:00 03/21/17 10:01 Zoloft - PO 50 mg DAILY CARLOS Administration Microbiology 03/20/17 05:45 Blood Culture - Preliminary Blood - Peripheral Venous NO GROWTH OBTAINED AFTER 24 HOURS, INCUBATION TO CONTINUE FOR 4 DAYS. 03/20/17 05:55 Blood Culture - Preliminary Blood - Peripheral Venous NO GROWTH OBTAINED AFTER 24 HOURS, INCUBATION TO CONTINUE FOR 4 DAYS. 03/17/17 23:50 Blood Culture - Preliminary Blood - Peripheral Venous NO GROWTH OBTAINED AFTER 72 HOURS, INCUBATION TO CONTINUE FOR 2 DAYS. 03/17/17 00:01 Blood Culture - Preliminary Blood - Peripheral Venous Pending Organism 03/18/17 00:01 Urine Culture - Final Urine - Urine Clean Catch Pseudomonas Aeruginosa IMAGING Foot X-ray on 03/18: inclusive for osteomyelitis Chest/Abd/Pelvis CT on 03/18: Cystitis, mild diverticulitis, gall stones, IVC filter in place, ankylosing spondylitis, sliding hiatal hernia, enlarged prostate, 5mm non-obstructing renal stone, questionable R kidney stone about 1mm , bilateral renal cysts, no acute pulmonary pathology. Head CT on 03/18: no acute finding Chest X-ray on 03/18: no acute finding ASSESSMENT/PLAN: 86 yo M h/o mild dementia, DVT and PE on eliquis, bladder cancer, diverticulosis , HTN, kidney cysts and stones admitted to the ICU for sepsis. ID: sepsis - Resolved - Likely 2/2 UTI and paronychia * s/p nail avulsion and bedside I&D of L great toe * UC grew pseudomonas sensitive to zosyn and blood cultures growing suspected contaminant * bone scan to exclude osteomyelitis - Cont. prophylactic zosyn 3.375g Q8H (day 4) Neuro: acute toxic metabolic encephalopathy - Resolved - Likely 2/2 sepsis Renal: HTN, nephrolithiasis and cysts - Cont. toprol - Bilateral cysts and non-obstructing stones on CT * No hydronephrosis * d/c Moyer today * No intervention per urology HemOnc: hypercoagulable state h/o bladder CA, DVT and PE - IVC filter identified on CT - Cont. eliquis 5mg PO daily FEN - IVF not indicated - Cont. to monitor lytes - Na+ controlled diet + prosource + multivitamin Prophylaxis - DVT: on eliquis - GI: not indicated Dispo - Awaiting bone scan and final cultures Code status - Full Visit type - Emergency Visit Emergency Visit: No - New Patient This patient is new to me today: No - Critical Care Critical Care patient: No
[2017-03-22] MEDS: PIPERACILLIN/TAZOB 3.375 GM 50 ML IVPB SCH ×3 (01:19→17:22)
--- NOTE | 2017-03-22 11:25 | PN ---
Teaching Attending Note Name of Resident: Jakub Loyola ATTENDING PHYSICIAN STATEMENT I saw and evaluated the patient. I reviewed the resident's note and discussed the case with the resident. I agree with the resident's findings and plan as documented. SUBJECTIVE:currently asymptomatic. denies Cp, SOb,fever, chills, foot pain OBJECTIVE: Last Vital Signs Temp Pulse Resp BP Pulse Ox 98.6 F 80 20 112/71 94 L 03/22/17 06:00 03/22/17 06:00 03/22/17 06:00 03/22/17 06:00 03/21/17 21:00 General NAD A&Ox3 Extremities L toe wrapped in gauze, minimal yellow drainage noted. area tender. pulse 2+ ASSESSMENT AND PLAN: 86 yo M with PMH dementia, DVT/PE, bladder cancer, HTN, kidney stones, who presented to the ER with lethargy, fever and confusion. 1. Sepsis secondary to UTI and paronychia of L 1st toe- s/p I&D and toenail removal 03/19 by podiatry. sepsis with lactic acidosis resolved. awaiting bone scan of foot to r/o OM. on ZOsyn day 5. plan to compete 7 day course if bone scan is negative. if positive will need longer course. 2. Acute metabolic encephalopathy secondary to sepsis- resolved. appears to be at baseline mental status 3. Bilateral renal/ureteral stones 4. Bilateral renal cysts 5. HTN-improved. cont metoprolol 6. Dementia 7. Bladder cancer 8. 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 Right groin wound-refused to have me evaluate. cont local wound care 10. DVT ppx- eliquis 11. will need ZAIRA on discharge. only able to stand with PT. pt is agreeable. spoke with SW, possible d/c on 03/24
[2017-03-22] MEDS ORDERED: PT OWN MED DRAWER 7, Y5N ONE (12:57)
--- NOTE | 2017-03-22 12:57 | PN ---
Progress Note, Physician History of Present Illness: patient stable getting the scan done 1st part done - Current Medication List Current Medications: Active Medications Acetaminophen (Tylenol -) 650 mg PO Q4H PRN PRN Reason: FEVER OR PAIN Last Admin: 03/20/17 21:41 Dose: 650 mg Amino Acids (Prosource No Carb Liquid Pkt) 30 ml PO BID@0800,1730 [facility] Last Admin: 03/21/17 17:17 Dose: 30 ml Apixaban (Eliquis -) 5 mg PO DAILY [facility] Last Admin: 03/21/17 10:01 Dose: 5 mg Folic Acid (Folic Acid -) 1 mg PO DAILY [facility] Last Admin: 03/21/17 10:01 Dose: 1 mg Piperacillin Sod/Tazobactam Sod (Zosyn 3.375gm Ivpb (Pre-Docked)) 50 mls @ 100 mls/hr IVPB Q8H-IV CARLOS PRN Reason: Protocol Last Admin: 03/22/17 01:19 Dose: 100 mls/hr Metoprolol Succinate (Toprol Xl -) 25 mg PO BID [facility] Last Admin: 03/21/17 22:39 Dose: 25 mg Multivitamins/Minerals/Vitamin C (Tab-A-Vit -) 1 tab PO DAILY [facility] Last Admin: 03/21/17 10:11 Dose: 1 tab Mupirocin (Bactroban 2% Ointment -) 1 applic TP BID [facility] Last Admin: 03/21/17 22:38 Dose: 1 applic Ranitidine HCl (Zantac Oral Solution -) 150 mg PO BID [facility] Last Admin: 03/21/17 22:39 Dose: 150 mg Sertraline HCl (Zoloft -) 50 mg PO DAILY [facility] Last Admin: 03/21/17 10:01 Dose: 50 mg - Objective Vital Signs: Vital Signs Temperature 98.6 F 03/22/17 06:00 Pulse Rate 80 03/22/17 06:00 Respiratory Rate 20 03/22/17 06:00 Blood Pressure 112/71 03/22/17 06:00 O2 Sat by Pulse Oximetry (%) 94 L 03/21/17 21:00 Constitutional: Yes: No Distress, Calm Cardiovascular: Yes: Regular Rate and Rhythm Respiratory: Yes: Regular, CTA Bilaterally Gastrointestinal: Yes: Normal Bowel Sounds, Soft Musculoskeletal: Yes: Other Extremities: Yes: Other Neurological: Yes: Alert, Oriented Psychiatric: Yes: Alert Labs: CBC, BMP 03/20/17 05:15 03/20/17 05:15 INR, PTT INR 1.75 (0.82-1.09) H 03/17/17 23:50 Assessment/Plan Problem List - Problems (1) DARELL (acute kidney injury) Code(s): N17.9 - ACUTE KIDNEY FAILURE, UNSPECIFIED (2) Sepsis Code(s): A41.9 - SEPSIS, UNSPECIFIED ORGANISM Qualifiers: Sepsis type: sepsis due to unspecified organism Qualified Code(s): A41.9 - Sepsis, unspecified organism (5) Hypertension Code(s): I10 - ESSENTIAL (PRIMARY) HYPERTENSION (6) Renal calculi Code(s): N20.0 - CALCULUS OF KIDNEY 7 uti pseudomonas 8 leukocytosis plan continue zosyn await for wound cx reports wait for bone scan to be completed rest as per primary
[2017-03-22] MEDS: MULTIVITAMINS (DAILY MVI) TABLET (FP) PO SCH (13:06)
[2017-03-22] MEDS: METOPROLOL SUCCINATE 25 MG TAB.SR.24H (FP) PO SCH ×2 (13:06→21:40)
[2017-03-22] MEDS: FOLIC ACID 1 MG TABLET (FP) PO SCH (13:07)
[2017-03-22] MEDS: SERTRALINE HCL 50 MG TABLET (FP) PO SCH (13:07)
[2017-03-22] MEDS: AMINO ACIDS/PROTEIN HYDROLYS 30 ML LIQUID.PKT PO SCH ×2 (13:07→18:00)
[2017-03-22] MEDS: MUPIROCIN 2% TOPICAL OINTMENT 22 GM TUBE TP SCH ×2 (13:07→21:41)
[2017-03-22] MEDS: APIXABAN 5 MG TABLET PO SCH (13:07)
[2017-03-22] MEDS: RANITIDINE HCL 150 MG/10 ML UNIT-DOSE CUP PO SCH ×2 (13:07→21:40)
--- NOTE | 2017-03-22 14:01 | MSN ---
Progress Note (short form) - Note Progress Note: Subjective: Patient was seen by me at the bedside. Patient claims to be feeling good. Patients level of awareness has not changed from baseline, he is unable to recall why he is at the hospital but is aware he is at [facility]. He denies any pain in the big toe. He states that he is eating and drinking well and is urinating and defecating without issue. Patient was seen by patient was only able to stand with assistance and unable to walk any distance. Patient denies any chest pain, SOB, nauseas, vomiting, fever, chills or headache. Vital Signs Period Temp Pulse Resp BP Sys/Austin Pulse Ox Last 24 Hr 97.2 F-98.6 F 80-88 18-20 97-112/54-71 94 Exam: General: alert and oriented in no acute distress Heart: regular rate and rhythm , normal S1 and S2 with no murmurs, rubs or gallops Lungs: Clear to auscultation bilaterally in all lung gutierrez Extremities: 4/5 muscle strength and 2/4 pulses in all extremities with intact sensation and no lower extremity edema. Left big toes shows some draining through the bandaging. Abdomen: No guarding or distention, nomroactive bowel sounds, no tenderness to palpation in any of the four quadrants. Lab values: No labs have been drawn in the last 24 hours. Current Medications Generic Name Dose Route Start Last Admin Trade Name Freq PRN Reason Stop Dose Admin Acetaminophen 650 mg 03/20/17 19:16 03/20/17 21:41 Tylenol - PO 650 mg Q4H PRN Administration FEVER OR PAIN Amino Acids 30 ml 03/21/17 08:00 03/22/17 13:07 Prosource No Carb Liquid Pkt PO 30 ml BID@0800,1730 CARLOS Administration Apixaban 5 mg 03/21/17 10:00 03/22/17 13:07 Eliquis - PO 5 mg DAILY CARLOS Administration Folic Acid 1 mg 03/21/17 10:00 03/22/17 13:07 Folic Acid - PO 1 mg DAILY CARLOS Administration Piperacillin Sod/Tazobactam Sod 50 mls @ 100 mls/hr 03/21/17 02:00 03/22/17 13: 07 Zosyn 3.375gm Ivpb (Pre-Docked) IVPB 100 mls/hr Q8H-IV CARLOS Administration Protocol Metoprolol Succinate 25 mg 03/20/17 22:00 03/22/17 13:06 Toprol Xl - PO 25 mg BID CARLOS Administration Multivitamins/Minerals/Vitamin C 1 tab 03/21/17 10:00 03/22/17 13:06 Tab-A-Vit - PO 1 tab DAILY [facility]OS Administration Mupirocin 1 applic 03/20/17 22:00 03/22/17 13:07 Bactroban 2% Ointment - TP 1 applic BID CARLOS Administration Ranitidine HCl 150 mg 03/20/17 22:00 03/22/17 13:07 Zantac Oral Solution - PO 150 mg BID CARLOS Administration Sertraline HCl 50 mg 03/21/17 10:00 03/22/17 13:07 Zoloft - PO 50 mg DAILY [facility]LOS Administration Imaging- Head CT (03/18/17)- no evidence of acute intracranial pathology Abdominal/Pelvic CT (03/18/17)- 5mm nonobstructing left renal stone. Questionable 1mm proximal right ureteral stone. 9.8 cm exophytic left upper renal pole cyst Foot Xray (03/19/17)- showed aisha deformity and osteopenia but inconclusive for osteomyolitis. Bone Scan of left foot (03/21/17)- ordered to rule out osteomylitis. Assessment and Plan- Patient is an 86 year old man with past medical history of dementia, DVT, PE, bladder cancer, kidney stones, who presented to the ER with lethargy and fever who was admitted for sepsis secondary to UTI. Sepsis secondary to UTI or Cellulitis - resolved - Zosyn 3.375 gm, 50mls @ 100mls/hr (day 5), plan to complete 7 days of antibiotics - acetaminophen 650 mg PO q 4hr PRN, for pain or fever - Urine culture positive for psuedomonas - blood culture positive for gram positive bacilli Cellulitis of the left first toe - awaiting final result culture - foot x-ray inconclusive for ostyeomyolitis - bone scan ordered to rule out osteomyolitis Altered mental Status secondary to sepsis - resolved - continue to monitor Hypertension - continue metoprolol 25mg PO daily DVT - apixiban 5mg PO daily F/E/N -regular diet -no IVF indicated
--- NOTE | 2017-03-22 16:16 | PN ---
Physical Exam: SUBJECTIVE: Patient has no complaint and no acute event noted overnight. Deny fever, chills , n/v, chest pain, sob, urinary or bowel symptoms. OBJECTIVE: Vital Signs Period Temp Pulse Resp BP Sys/Austin Pulse Ox Last 24 Hr 97.2 F-98.6 F 80-88 20-20 97-112/54-71 94-96 GENERAL: AAO x 3, mildly demented but at baseline, in no acute distress. EYES: PERRLA ENT: oropharynx clear without exudates, moist mucous membranes. LUNGS: CTAB HEART: RRR, S1, S2 without murmur, rub or gallop. ABDOMEN: Soft, nontender, nondistended, normoactive bowel sounds, no guarding, no rebound, no hepatosplenomegaly, no masses. EXTREMITIES: +2 symmetric peripheral pulses in LE bilaterally, +1 bilateral peripheral edema; L toe dressing in place, dry tinted blood SKIN: Stage 1 decubitus ulcer in R groin CBCD WBC 6.8 K/mm3 (4.0-10.0) 03/20/17 05:15 RBC 4.22 M/mm3 (4.00-5.60) 03/20/17 05:15 Hgb 11.8 GM/dL (11.7-16.9) 03/20/17 05:15 Hct 36.2 % (35.4-49) 03/20/17 05:15 MCV 85.7 fl (80-96) 03/20/17 05:15 MCHC 32.7 g/dl (32.0-35.9) 03/20/17 05:15 RDW 17.1 % (11.9-15.9) H 03/20/17 05:15 Plt Count 183 K/MM3 (134-434) 03/20/17 05:15 MPV 8.9 fl (7.5-11.1) 03/20/17 05:15 CMP Sodium 145 mmol/L (136-145) 03/20/17 05:15 Potassium 4.1 mmol/L (3.5-5.1) 03/20/17 05:15 Chloride 108 mmol/L (98-107) H 03/20/17 05:15 Carbon Dioxide 29 mmol/L (21-32) 03/20/17 05:15 Anion Gap 8 (8-16) 03/20/17 05:15 BUN 12 mg/dL (7-18) 03/20/17 05:15 Creatinine 0.8 mg/dL (0.7-1.3) 03/20/17 05:15 Creat Clearance w eGFR > 60 (>60) 03/20/17 05:15 Calcium 8.5 mg/dL (8.5-10.1) 03/20/17 05:15 Total Bilirubin 0.5 mg/dL (0.2-1.0) D 03/20/17 05:15 AST 10 U/L (15-37) L 03/20/17 05:15 ALT 12 U/L (12-78) D 03/20/17 05:15 Alkaline Phosphatase 63 U/L (45-117) 03/20/17 05:15 Total Protein 6.0 g/dl (6.4-8.2) L 03/20/17 05:15 Albumin 2.4 g/dl (3.4-5.0) L 03/20/17 05:15 Intake & Output 03/19/17 03/20/17 03/21/17 03/22/17 23:59 23:59 23:59 23:59 Intake Total 500 1370 50 Output Total 700 2000 Balance -200 -630 50 Active Medications Generic Name Dose Route Start Last Admin Trade Name Marcosq PRN Reason Stop Dose Admin Acetaminophen 650 mg 03/20/17 19:16 03/20/17 21:41 Tylenol - PO 650 mg Q4H PRN Administration FEVER OR PAIN Amino Acids 30 ml 03/21/17 08:00 03/22/17 13:07 Prosource No Carb Liquid Pkt PO 30 ml BID@0800,1730 CARLOS Administration Apixaban 5 mg 03/21/17 10:00 03/22/17 13:07 Eliquis - PO 5 mg DAILY CARLOS Administration Folic Acid 1 mg 03/21/17 10:00 03/22/17 13:07 Folic Acid - PO 1 mg DAILY CARLOS Administration Piperacillin Sod/Tazobactam Sod 50 mls @ 100 mls/hr 03/21/17 02:00 03/22/17 13: 07 Zosyn 3.375gm Ivpb (Pre-Docked) IVPB 100 mls/hr Q8H-IV CARLOS Administration Protocol Vancomycin HCl 1,000 mg/ 250 mls @ 250 mls/hr 03/22/17 15:57 Dextrose IVPB 03/22/17 16:56 ONCE ONE Protocol Metoprolol Succinate 25 mg 03/20/17 22:00 03/22/17 13:06 Toprol Xl - PO 25 mg BID CARLOS Administration Multivitamins/Minerals/Vitamin C 1 tab 03/21/17 10:00 03/22/17 13:06 Tab-A-Vit - PO 1 tab DAILY CARLOS Administration Mupirocin 1 applic 03/20/17 22:00 03/22/17 13:07 Bactroban 2% Ointment - TP 1 applic BID CARLOS Administration Ranitidine HCl 150 mg 03/20/17 22:00 03/22/17 13:07 Zantac Oral Solution - PO 150 mg BID CARLOS Administration Sertraline HCl 50 mg 03/21/17 10:00 03/22/17 13:07 Zoloft - PO 50 mg DAILY CARLOS Administration Microbiology 03/19/17 18:00 Gram Stain - Final Foot - Left Dorsum Wound Culture - Preliminary Non Lactose Fermenting Gnb Presumptive Mrsa (Pbp2a Pos) Pending Organism 03/17/17 00:01 Blood Culture - Preliminary Blood - Peripheral Venous Pending Organism 03/20/17 05:45 Blood Culture - Preliminary Blood - Peripheral Venous NO GROWTH OBTAINED AFTER 48 HOURS, INCUBATION TO CONTINUE FOR 3 DAYS. 03/20/17 05:55 Blood Culture - Preliminary Blood - Peripheral Venous NO GROWTH OBTAINED AFTER 48 HOURS, INCUBATION TO CONTINUE FOR 3 DAYS. 03/17/17 23:50 Blood Culture - Preliminary Blood - Peripheral Venous NO GROWTH OBTAINED AFTER 96 HOURS, INCUBATION TO CONTINUE FOR 1 DAYS. IMAGING Foot X-ray on 03/18: inclusive for osteomyelitis Chest/Abd/Pelvis CT on 03/18: Cystitis, mild diverticulitis, gall stones, IVC filter in place, ankylosing spondylitis, sliding hiatal hernia, enlarged prostate, 5mm non-obstructing renal stone, questionable R kidney stone about 1mm , bilateral renal cysts, no acute pulmonary pathology. Head CT on 03/18: no acute finding Chest X-ray on 03/18: no acute finding ASSESSMENT/PLAN: 86 yo M h/o mild dementia, DVT and PE on eliquis, bladder cancer, diverticulosis , HTN, kidney cysts and stones admitted to the ICU for sepsis. ID: sepsis - Resolved - Likely 2/2 UTI and possible osteomyelitis in the L great toe * s/p nail avulsion and bedside I&D of L great toe * UC grew pseudomonas sensitive to zosyn and toe wound culture growing MRSA * gave 1g Vanco IV x 1 * awaiting bone scan result - Cont. prophylactic zosyn 3.375g Q8H (day 5) Neuro: acute toxic metabolic encephalopathy - Resolved - Likely 2/2 sepsis Renal: HTN, nephrolithiasis and cysts - Cont. toprol - Bilateral cysts and non-obstructing stones on CT * No hydronephrosis * No intervention per urology HemOnc: hypercoagulable state h/o bladder CA, DVT and PE - IVC filter identified on CT - Cont. eliquis 5mg PO daily FEN - IVF not indicated - Cont. to monitor lytes - Na+ controlled diet + prosource + multivitamin Prophylaxis - DVT: on eliquis - GI: not indicated Dispo - Awaiting bone scan result and recommendation on abx choice and duration Code status - Full Visit type - Emergency Visit Emergency Visit: No - New Patient This patient is new to me today: No - Critical Care Critical Care patient: No
[2017-03-22] MEDS ORDERED: VANCOMYCIN 1 GRAM (PRE-DOCKED) 250 ML IVPB ONE (16:30)
[2017-03-23] MEDS: PIPERACILLIN/TAZOB 3.375 GM 50 ML IVPB SCH ×2 (01:23→10:28)
--- NOTE | 2017-03-23 08:06 | PN ---
Teaching Attending Note Name of Resident: Jakub Loyola ATTENDING PHYSICIAN STATEMENT I saw and evaluated the patient. I reviewed the resident's note and discussed the case with the resident. I agree with the resident's findings and plan as documented. SUBJECTIVE: The patient is an 86 year old male with a significant past medical history of dementia, DVT/PE (on Eliquis), HTN and bladder cancer who was admitted with sepsis and bacteremia secondary to UTI and possible osteomyelitis. He is s/p ID of left great toe and is awaiting bone scan results to evaluate for possible toe osteomyelitis. OBJECTIVE: Vitals noted ASSESSMENT AND PLAN: -Possible toe osteomyelitis Appreciate nursing consultant input Await bone scan results See resident note for full details
[2017-03-23] MEDS: AMINO ACIDS/PROTEIN HYDROLYS 30 ML LIQUID.PKT PO SCH ×2 (08:37→17:02)
--- NOTE | 2017-03-23 10:06 | PN ---
Progress Note, Physician Chief Complaint: F/U after I and D of complicated cutaneous (I and D and nail avulsion) abscess left great toe - Current Medication List Current Medications: Active Medications Acetaminophen (Tylenol -) 650 mg PO Q4H PRN PRN Reason: FEVER OR PAIN Last Admin: 03/20/17 21:41 Dose: 650 mg Amino Acids (Prosource No Carb Liquid Pkt) 30 ml PO BID@0800,1730 [facility] Last Admin: 03/23/17 08:37 Dose: 30 ml Apixaban (Eliquis -) 5 mg PO DAILY [facility] Last Admin: 03/22/17 13:07 Dose: 5 mg Folic Acid (Folic Acid -) 1 mg PO DAILY [facility] Last Admin: 03/22/17 13:07 Dose: 1 mg Piperacillin Sod/Tazobactam Sod (Zosyn 3.375gm Ivpb (Pre-Docked)) 50 mls @ 100 mls/hr IVPB Q8H-IV CARLOS PRN Reason: Protocol Last Admin: 03/23/17 01:23 Dose: 100 mls/hr Metoprolol Succinate (Toprol Xl -) 25 mg PO BID [facility] Last Admin: 03/22/17 21:40 Dose: 25 mg Multivitamins/Minerals/Vitamin C (Tab-A-Vit -) 1 tab PO DAILY [facility] Last Admin: 03/22/17 13:06 Dose: 1 tab Mupirocin (Bactroban 2% Ointment -) 1 applic TP BID [facility] Last Admin: 03/22/17 21:41 Dose: 1 applic Ranitidine HCl (Zantac Oral Solution -) 150 mg PO BID [facility] Last Admin: 03/22/17 21:40 Dose: 150 mg Sertraline HCl (Zoloft -) 50 mg PO DAILY [facility] Last Admin: 03/22/17 13:07 Dose: 50 mg - Objective Vital Signs: Vital Signs Temperature 36.6 C 03/23/17 09:08 Pulse Rate 72 03/23/17 09:08 Respiratory Rate 20 03/23/17 09:08 Blood Pressure 126/73 03/23/17 09:08 O2 Sat by Pulse Oximetry (%) 96 03/22/17 21:00 Constitutional: Yes: Well Nourished, No Distress Extremities: Yes: Other (cavus foot type with multiple digital contractures) Edema: LLE: Trace, RLE: Trace Peripheral Pulses WNL: Yes Peripheral Pulses: Left Doralis Pedis: 2+, Right Dorsalis Pedis: 2+ Integumentary: Yes: Incision (.6 X .5 cm greal toe nail bed wound with some necrosis), Laceration Wound/Incision: Yes: Dressing Dry and Intact, Dressing Removed, Reddened, Excoriated (cental nidus of necrosis on nail bed) ...Motor Strength: WNL Psychiatric: Yes: Other (somewhat disoriented to time and space) Additional Findings/Remarks: Nail bed mostly epithelialized with central .6 X .5 cm nidus of exposed subcutaneous necrotic tissue. Mild local gigantism of the digit persists. Bedside debridement performed to the subcutaneous tissue including vital tissue of hypergranulation via sharp debridement with #10 blade without anesthesia. Tolerated procedure well with minimal discomfort. 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 Despite the presence of contractures globally at the MTPJ's ( trauma could be an etiology for + scan) it is only the 1st ray that is illustrating ^ uptake. Best management practice is to perform an osseous culture and sensitivity to rule it out OR to obtain the causative organism(s) for appropriate antimicrobial chemotherapy. Scheduled for osseous biopsy March,. Discussed the case with Dr. Jakub Loyola resident assigned to this patient: discussion with Infectious Disease attending Dr. Gloria reveals agreement with this plan. Total time spent on this case with medical record review, imaging review discussion with other physicians and house staff exceeded 30 minutes and is to treat the underlying illness of possible osteomyelitis. Labs: CBC, BMP 03/20/17 05:15 03/20/17 05:15 INR, PTT INR 1.75 (0.82-1.09) H 03/17/17 23:50 + MRSA upon culture - ....Imaging Other: Pending (scan- suggestive of possible left great toe proximal phalangeal osteomyelitis)
[2017-03-23] MEDS: SERTRALINE HCL 50 MG TABLET (FP) PO SCH (10:26)
[2017-03-23] MEDS: FOLIC ACID 1 MG TABLET (FP) PO SCH (10:27)
[2017-03-23] MEDS: MULTIVITAMINS (DAILY MVI) TABLET (FP) PO SCH (10:27)
[2017-03-23] MEDS: MUPIROCIN 2% TOPICAL OINTMENT 22 GM TUBE TP SCH ×2 (10:27→22:00)
[2017-03-23] MEDS: APIXABAN 5 MG TABLET PO SCH (10:27)
[2017-03-23] MEDS: RANITIDINE HCL 150 MG/10 ML UNIT-DOSE CUP PO SCH ×2 (10:28→21:14)
[2017-03-23] MEDS: METOPROLOL SUCCINATE 25 MG TAB.SR.24H (FP) PO SCH ×2 (10:28→21:15)
--- NOTE | 2017-03-23 11:42 | PN ---
Physical Exam: SUBJECTIVE: No complaint and no acute event noted overnight. OBJECTIVE: Vital Signs Period Temp Pulse Resp BP Sys/[place] Pulse Ox Last 24 Hr 97.8 F-98.7 F 72-86 20-20 100-129/64-80 96 GENERAL: AAO x 3, mildly demented but at baseline, in no acute distress. EYES: PERRLA ENT: oropharynx clear without exudates, moist mucous membranes. LUNGS: CTAB HEART: RRR, S1, S2 without murmur, rub or gallop. ABDOMEN: Soft, nontender, nondistended, normoactive bowel sounds, no guarding, no rebound, no hepatosplenomegaly, no masses. EXTREMITIES: +2 symmetric peripheral pulses in LE bilaterally, +1 bilateral peripheral edema; L toe dressing in place, dry tinted blood SKIN: Stage 1 decubitus ulcer in R groin Active Medications Generic Name Dose Route Start Last Admin Trade Name Freq PRN Reason Stop Dose Admin Acetaminophen 650 mg 03/20/17 19:16 03/20/17 21:41 Tylenol - PO 650 mg Q4H PRN Administration FEVER OR PAIN Amino Acids 30 ml 03/21/17 08:00 03/23/17 08:37 Prosource No Carb Liquid Pkt PO 30 ml BID@0800,1730 CARLOS Administration Apixaban 5 mg 03/21/17 10:00 03/23/17 10:27 Eliquis - PO 5 mg DAILY CARLOS Administration Folic Acid 1 mg 03/21/17 10:00 03/23/17 10:27 Folic Acid - PO 1 mg DAILY CARLOS Administration Piperacillin Sod/Tazobactam Sod 50 mls @ 100 mls/hr 03/21/17 02:00 03/23/17 10: 28 Zosyn 3.375gm Ivpb (Pre-Docked) IVPB 100 mls/hr Q8H-IV CARLOS Administration Protocol Metoprolol Succinate 25 mg 03/20/17 22:00 03/23/17 10:28 Toprol Xl - PO 25 mg BID CARLOS Administration Multivitamins/Minerals/Vitamin C 1 tab 03/21/17 10:00 03/23/17 10:27 Tab-A-Vit - PO 1 tab DAILY CARLOS Administration Mupirocin 1 applic 03/20/17 22:00 03/23/17 10:27 Bactroban 2% Ointment - TP 1 applic BID CARLOS Administration Ranitidine HCl 150 mg 03/20/17 22:00 03/23/17 10:28 Zantac Oral Solution - PO 150 mg BID CARLOS Administration Sertraline HCl 50 mg 03/21/17 10:00 03/23/17 10:26 Zoloft - PO 50 mg DAILY CARLOS Administration Microbiology 03/20/17 05:45 Blood Culture - Preliminary Blood - Peripheral Venous NO GROWTH OBTAINED AFTER 72 HOURS, INCUBATION TO CONTINUE FOR 2 DAYS. 03/20/17 05:55 Blood Culture - Preliminary Blood - Peripheral Venous NO GROWTH OBTAINED AFTER 72 HOURS, INCUBATION TO CONTINUE FOR 2 DAYS. 03/17/17 23:50 Blood Culture - Final Blood - Peripheral Venous NO GROWTH AFTER 5 DAYS INCUBATION 03/19/17 18:00 Gram Stain - Final Foot - Left Dorsum Wound Culture - Preliminary Non Lactose Fermenting Gnb Presumptive Mrsa (Pbp2a Pos) Pending Organism 03/17/17 00:01 Blood Culture - Preliminary Blood - Peripheral Venous Pending Organism IMAGING Foot X-ray on 03/18: inclusive for osteomyelitis Chest/Abd/Pelvis CT on 03/18: Cystitis, mild diverticulitis, gall stones, IVC filter in place, ankylosing spondylitis, sliding hiatal hernia, enlarged prostate, 5mm non-obstructing renal stone, questionable R kidney stone about 1mm , bilateral renal cysts, no acute pulmonary pathology. Head CT on 03/18: no acute finding Chest X-ray on 03/18: no acute finding ASSESSMENT/PLAN: 86 yo M h/o mild dementia, DVT and PE on eliquis, bladder cancer, diverticulosis , HTN, kidney cysts and stones admitted to the ICU for sepsis. ID: sepsis - Resolved - Likely 2/2 UTI and possible cellulitis vs osteomyelitis in the L great toe * s/p nail avulsion and bedside I&D of L great toe * UC grew pseudomonas sensitive to zosyn and toe wound culture growing MRSA * gave 1g Vanco IV x 1 * awaiting bone scan result - Cont. prophylactic zosyn 3.375g Q8H (day 6) Neuro: acute toxic metabolic encephalopathy - Resolved - Likely 2/2 sepsis Renal: HTN, nephrolithiasis and cysts - Cont. toprol - Bilateral cysts and non-obstructing stones on CT * No hydronephrosis * No intervention per urology HemOnc: hypercoagulable state h/o bladder CA, DVT and PE - IVC filter identified on CT - Cont. eliquis 5mg PO daily FEN - IVF not indicated - Cont. to monitor lytes - Na+ controlled diet + prosource + multivitamin Prophylaxis - DVT: on eliquis - GI: not indicated Dispo - Awaiting bone scan result and recommendation on abx choice and duration Code status - Full Visit type - Emergency Visit Emergency Visit: No - New Patient This patient is new to me today: No - Critical Care Critical Care patient: No
--- NOTE | 2017-03-23 12:56 | PN ---
Progress Note, Physician History of Present Illness: patient stable scan done results awaited no events overnight - Current Medication List Current Medications: Active Medications Acetaminophen (Tylenol -) 650 mg PO Q4H PRN PRN Reason: FEVER OR PAIN Last Admin: 03/20/17 21:41 Dose: 650 mg Amino Acids (Prosource No Carb Liquid Pkt) 30 ml PO BID@0800,1730 [facility] Last Admin: 03/23/17 08:37 Dose: 30 ml Apixaban (Eliquis -) 5 mg PO DAILY [facility] Last Admin: 03/23/17 10:27 Dose: 5 mg Folic Acid (Folic Acid -) 1 mg PO DAILY [facility] Last Admin: 03/23/17 10:27 Dose: 1 mg Piperacillin Sod/Tazobactam Sod (Zosyn 3.375gm Ivpb (Pre-Docked)) 50 mls @ 100 mls/hr IVPB Q8H-IV CARLOS PRN Reason: Protocol Last Admin: 03/23/17 10:28 Dose: 100 mls/hr Vancomycin HCl 1,250 mg/ (Dextrose) 250 mls @ 250 mls/hr IVPB DAILY CARLOS PRN Reason: Protocol Metoprolol Succinate (Toprol Xl -) 25 mg PO BID [facility] Last Admin: 03/23/17 10:28 Dose: 25 mg Multivitamins/Minerals/Vitamin C (Tab-A-Vit -) 1 tab PO DAILY [facility] Last Admin: 03/23/17 10:27 Dose: 1 tab Mupirocin (Bactroban 2% Ointment -) 1 applic TP BID [facility] Last Admin: 03/23/17 10:27 Dose: 1 applic Ranitidine HCl (Zantac Oral Solution -) 150 mg PO BID [facility] Last Admin: 03/23/17 10:28 Dose: 150 mg Sertraline HCl (Zoloft -) 50 mg PO DAILY [facility] Last Admin: 03/23/17 10:26 Dose: 50 mg - Objective Vital Signs: Vital Signs Temperature 97.8 F 03/23/17 09:08 Pulse Rate 72 03/23/17 09:08 Respiratory Rate 20 03/23/17 09:08 Blood Pressure 126/73 03/23/17 09:08 O2 Sat by Pulse Oximetry (%) 96 03/23/17 09:00 Constitutional: Yes: No Distress, Calm Neck: Yes: Supple Cardiovascular: Yes: Regular Rate and Rhythm Respiratory: Yes: Regular, CTA Bilaterally Gastrointestinal: Yes: Normal Bowel Sounds, Soft Musculoskeletal: Yes: Other Extremities: Yes: Other Wound/Incision: Yes: Other Neurological: Yes: Alert, Other (mild dementia) Psychiatric: Yes: Alert Labs: CBC, BMP 03/20/17 05:15 03/20/17 05:15 INR, PTT INR 1.75 (0.82-1.09) H 03/17/17 23:50 - ....Imaging Other: Image Reviewed (bone scan) Assessment/Plan Problem List - Problems (1) DARELL (acute kidney injury) Code(s): N17.9 - ACUTE KIDNEY FAILURE, UNSPECIFIED (2) Sepsis Code(s): A41.9 - SEPSIS, UNSPECIFIED ORGANISM Qualifiers: Sepsis type: sepsis due to unspecified organism Qualified Code(s): A41.9 - Sepsis, unspecified organism (5) Hypertension Code(s): I10 - ESSENTIAL (PRIMARY) HYPERTENSION (6) Renal calculi Code(s): N20.0 - CALCULUS OF KIDNEY 7 uti pseudomonas 8 leukocytosis wound cx result noted 3 organism growing await for final report on grp d vs enterococcus plan continue zosyn and vanco await for bone scan result final decision will made then rest as per primary
[2017-03-23] MEDS ORDERED: VANCOMYCIN 1,250 MG in DEXTROSE 5%-WATER - 250 ML IVPB SCH (13:00)
--- NOTE | 2017-03-23 13:24 | MSN ---
Progress Note (short form) - Note Progress Note: Subjective: Patient was seen by me at the bedside. Patients mental status is unchanged from baseline. He is aware that he is at [facility] but is unaware of why. Otherwise the patient is alert and oriented and able to answer questions. Patient states that he feel "good." He denies and new onset lethargy and denies any pain in his left big toe. Patient also denies any fever, chills, nausea, vomiting, diarrhea, headache, chest pain , or SOB. Patient has been able to eat and drink without incidence and has bee urinating and defecating regularly. Vital Signs Period Temp Pulse Resp BP Sys/[place] Pulse Ox Last 24 Hr 97.8 F-98.7 F 72-86 20-20 100-129/64-80 96-96 Exam: General: alert and oriented in no acute distress Heart: regular rate and rhythm with normal S1 and S1, with no murmurs, rubs, or gallops. Lungs: clear to auscultation bilaterally in all lung gutierrez Extremities: 4/5 muscle strength and 2/4 pulses in all extremities with intact sensation, no swelling or edema. Abdomen: no guarding or distention, normoactive bowel sounds, no tenderness to palpation. No recent laboratory tests in the last 24 hours Current Medications Generic Name Dose Route Start Last Admin Trade Name Freq PRN Reason Stop Dose Admin Acetaminophen 650 mg 03/20/17 19:16 03/20/17 21:41 Tylenol - PO 650 mg Q4H PRN Administration FEVER OR PAIN Amino Acids 30 ml 03/21/17 08:00 03/23/17 08:37 Prosource No Carb Liquid Pkt PO 30 ml BID@0800,1730 [facility] Administration Apixaban 5 mg 03/21/17 10:00 03/23/17 10:27 Eliquis - PO 5 mg DAILY [facility] Administration Folic Acid 1 mg 03/21/17 10:00 03/23/17 10:27 Folic Acid - PO 1 mg DAILY [facility] Administration Piperacillin Sod/Tazobactam Sod 50 mls @ 100 mls/hr 03/21/17 02:00 03/23/17 10: 28 Zosyn 3.375gm Ivpb (Pre-Docked) IVPB 100 mls/hr Q8H-IV CARLOS Administration Protocol Vancomycin HCl 1,250 mg/ 250 mls @ 166.667 mls/hr 03/23/17 13:00 Dextrose IVPB DAILY [facility] Protocol Metoprolol Succinate 25 mg 03/20/17 22:00 03/23/17 10:28 Toprol Xl - PO 25 mg BID CARLOS Administration Multivitamins/Minerals/Vitamin C 1 tab 03/21/17 10:00 03/23/17 10:27 Tab-A-Vit - PO 1 tab DAILY [facility] Administration Mupirocin 1 applic 03/20/17 22:00 03/23/17 10:27 Bactroban 2% Ointment - TP 1 applic BID [facility] Administration Ranitidine HCl 150 mg 03/20/17 22:00 03/23/17 10:28 Zantac Oral Solution - PO 150 mg BID [facility] Administration Sertraline HCl 50 mg 03/21/17 10:00 03/23/17 10:26 Zoloft - PO 50 mg DAILY [facility] Administration Imaging- Head CT (03/18/17)- no evidence of acute intracranial pathology Abdominal/Pelvic CT (03/18/17)- 5mm nonobstructing left renal stone. Questionable 1mm proximal right ureteral stone. 9.8 cm exophytic left upper renal pole cyst Foot Xray (03/19/17)- showed aisha deformity and osteopenia but inconclusive for osteomylitus. Bone Scan of left foot (03/21/17)- completed, report shows that scan is suspicious for cellulites and osteomylitus of proximal phalanx of the left big toe. Assessment and Plan- Patient is an 86 year old man with past medical history of dementia, DVT, PE, bladder cancer, kidney stones, who presented to the ER with lethargy and fever who was admitted for sepsis secondary to UTI. Sepsis secondary to UTI or Cellulitis - resolved - Zosyn 3.375 gm, 50mls @ 100mls/hr (day 6), plan to complete 7 days of antibiotics - acetaminophen 650 mg PO q 4hr PRN, for pain or fever - Urine culture positive for psuedomonas - blood culture positive for gram positive bacilli Cellulitis of the left first toe - cultures positive for non-lactose fermenting GNB, group D strep, and MRSA - Vancomycin 250 mls @ 166.66 mls/hr IVPB (day 2) - foot x-ray inconclusive for ostyeomyltus - bone scan completed, report shows that scan is suspicious for cellulites and osteomylitus of proximal phalynx of the left big toe. Altered mental Status secondary to sepsis - resolved - continue to monitor Hypertension - continue metoprolol 25mg PO daily DVT - apixiban 5mg PO daily F/E/N -regular diet -no IVF indicated
[2017-03-24] MEDS: AMINO ACIDS/PROTEIN HYDROLYS 30 ML LIQUID.PKT PO SCH ×2 (09:22→17:57)
[2017-03-24] MEDS: RANITIDINE HCL 150 MG/10 ML UNIT-DOSE CUP PO SCH ×2 (09:22→21:15)
[2017-03-24] MEDS: SERTRALINE HCL 50 MG TABLET (FP) PO SCH (09:23)
[2017-03-24] MEDS: METOPROLOL SUCCINATE 25 MG TAB.SR.24H (FP) PO SCH ×2 (09:23→21:15)
[2017-03-24] MEDS: APIXABAN 5 MG TABLET PO SCH (09:23)
[2017-03-24] MEDS: MULTIVITAMINS (DAILY MVI) TABLET (FP) PO SCH (09:23)
[2017-03-24] MEDS: FOLIC ACID 1 MG TABLET (FP) PO SCH (09:23)
[2017-03-24] MEDS: MUPIROCIN 2% TOPICAL OINTMENT 22 GM TUBE TP SCH ×2 (09:24→21:19)
--- NOTE | 2017-03-24 14:15 | PN ---
Physical Exam: SUBJECTIVE: Patient seen and examined at bedside. Has pain in his groin and back from lying in bed. OBJECTIVE: Vital Signs Period Temp Pulse Resp BP Sys/Austin Pulse Ox Last 24 Hr 97.3 F-98 F 74-78 18-20 114-129/72-82 96-96 GENERAL: The patient is awake, alert, and fully oriented, in no acute distress. HEAD: Normal with no signs of trauma. EYES: PERRL, extraocular movements intact, sclera anicteric, conjunctiva clear. No ptosis. LUNGS: Breath sounds equal, clear to auscultation bilaterally, no wheezes, no crackles, no accessory muscle use. HEART: Regular rate and rhythm, S1, S2 without murmur, rub or gallop. ABDOMEN: Soft, nontender, nondistended, normoactive bowel sounds, no guarding, no rebound EXTREMITIES: Left foot wrapped, dressing clean and dry NEUROLOGICAL: Cranial nerves II through XII grossly intact. Normal speech, gait not observed. SKIN: Right inguinal fungal rash; Stage I sacral ulcer approx 5cm L x 8cm W x superficial that crosses the midline Active Medications Generic Name Dose Route Start Last Admin Trade Name Freq PRN Reason Stop Dose Admin Acetaminophen 650 mg 03/20/17 19:16 03/20/17 21:41 Tylenol - PO 650 mg Q4H PRN Administration FEVER OR PAIN Amino Acids 30 ml 03/21/17 08:00 03/24/17 09:22 Prosource No Carb Liquid Pkt PO 30 ml BID@0800,1730 CARLOS Administration Apixaban 5 mg 03/21/17 10:00 03/24/17 09:23 Eliquis - PO 5 mg DAILY CARLOS Administration Folic Acid 1 mg 03/21/17 10:00 03/24/17 09:23 Folic Acid - PO 1 mg DAILY CARLOS Administration Piperacillin Sod/Tazobactam Sod 50 mls @ 100 mls/hr 03/21/17 02:00 03/23/17 10: 28 Zosyn 3.375gm Ivpb (Pre-Docked) IVPB 100 mls/hr Q8H-IV CARLOS Administration Protocol Vancomycin HCl 1,250 mg/ 250 mls @ 166.667 mls/hr 03/23/17 13:00 03/23/17 14:28 Dextrose IVPB 166.667 mls/hr DAILY CARLOS Administration Protocol Metoprolol Succinate 25 mg 03/20/17 22:00 03/24/17 09:23 Toprol Xl - PO 25 mg BID CARLOS Administration Multivitamins/Minerals/Vitamin C 1 tab 03/21/17 10:00 03/24/17 09:23 Tab-A-Vit - PO 1 tab DAILY CARLOS Administration Mupirocin 1 applic 03/20/17 22:00 03/24/17 09:24 Bactroban 2% Ointment - TP 1 applic BID CARLOS Administration Ranitidine HCl 150 mg 03/20/17 22:00 03/24/17 09:22 Zantac Oral Solution - PO 150 mg BID CARLOS Administration Sertraline HCl 50 mg 03/21/17 10:00 03/24/17 09:23 Zoloft - PO 50 mg DAILY CARLOS Administration ASSESSMENT/PLAN 86 year-old male with a significant PMH of HTN, DVT/PE on Eliquis, bladder cancer, and dementia who was admitted with sepsis and bacteremia secondary to UTI and possible osteomyelitis. He is s/p ID of left great toe and is awaiting bone scan results to evaluate for possible toe osteomyelitis. Left great toe cellulitis Rule out left great toe osteo Sepsis, resolved - toe wound growing pseudomonas, MRSA, Group D strep/enterococcus - continue Zosyn; Vanc put on hold by ID 03/23 Hypertension - Continue toprol h/o DVT/PE - IVC filter - Continue Eliquis FEN - PO intake adequate - Cont. to monitor lytes - low sodium Prophylaxis - DVT: on eliquis - GI: not indicated Dispo: continues to require inpatient care. Full code. Visit type - Emergency Visit Emergency Visit: Yes ED Registration Date: 03/18/17 Care time: The patient presented to the Emergency Department on the above date and was hospitalized for further evaluation of their emergent condition. - New Patient This patient is new to me today: Yes Date on this admission: 03/24/17 - Critical Care Critical Care patient: No
[2017-03-24] MEDS: NYSTATIN 100,000 UNIT/GM TOPICAL CREAM 15 GM TUBE TP SCH (21:16)
[2017-03-25 08:18] LABS: MCH 28.4 pg (25.7-33.7); MCHC 32.8 g/dl (32.0-35.9); MEAN CELL VOLUME 86.4 fl (80-96); MEAN PLT VOLUME 8.6 fl (7.5-11.1); PLATELET COUNT 201 K/MM3 (134-434); RDW 17.5 % (11.9-15.9); WHITE BLOOD COUNT 7.9 K/mm3 (4.0-10.0)
--- NOTE | 2017-03-25 08:24 | PN ---
Teaching Attending Note Name of Resident: Natasha Alvarado ATTENDING PHYSICIAN STATEMENT I saw and evaluated the patient. I reviewed the resident's note and discussed the case with the resident. I agree with the resident's findings and plan as documented. SUBJECTIVE: Patient is comfortable with no acute distress, no shortness of breath, no nausea or vomiting. Patient is hard of hearing. OBJECTIVE: Vital Signs Temperature 98.4 F 03/25/17 06:00 Pulse Rate 77 03/25/17 06:00 Respiratory Rate 20 03/25/17 06:00 Blood Pressure 122/71 03/25/17 06:00 O2 Sat by Pulse Oximetry (%) 96 03/24/17 21:00 GENERAL: The patient is awake, alert, and fully oriented, in no acute distress. HEAD: Normal with no signs of trauma. EYES: PERRL, extraocular movements intact, sclera anicteric, conjunctiva clear. LUNGS: Breath sounds equal, clear to auscultation bilaterally, no wheezes, no crackles, no accessory muscle use. HEART: Regular rate and rhythm, S1, S2 without murmur, rub or gallop. ABDOMEN: Soft, nontender, nondistended, normoactive bowel sounds, no guarding, no rebound EXTREMITIES: Left toe wrapped, dressing clean and dry NEUROLOGICAL: Cranial nerves II through XII grossly intact. Normal speech, gait not observed. SKIN: Right inguinal fungal rash; Stage I sacral ulcer approx 5cm L x 8cm W x superficial CBCD WBC 7.9 K/mm3 (4.0-10.0) 03/25/17 06:30 RBC 4.30 M/mm3 (4.00-5.60) 03/25/17 06:30 Hgb 12.2 GM/dL (11.7-16.9) 03/25/17 06:30 Hct 37.1 % (35.4-49) 03/25/17 06:30 MCV 86.4 fl (80-96) 03/25/17 06:30 MCHC 32.8 g/dl (32.0-35.9) 03/25/17 06:30 RDW 17.5 % (11.9-15.9) H 03/25/17 06:30 Plt Count 201 K/MM3 (134-434) 03/25/17 06:30 MPV 8.6 fl (7.5-11.1) 03/25/17 06:30 CMP Sodium 145 mmol/L (136-145) 03/20/17 05:15 Potassium 4.1 mmol/L (3.5-5.1) 03/20/17 05:15 Chloride 108 mmol/L (98-107) H 03/20/17 05:15 Carbon Dioxide 29 mmol/L (21-32) 03/20/17 05:15 Anion Gap 8 (8-16) 03/20/17 05:15 BUN 12 mg/dL (7-18) 03/20/17 05:15 Creatinine 0.8 mg/dL (0.7-1.3) 03/20/17 05:15 Creat Clearance w eGFR > 60 (>60) 03/20/17 05:15 Random Glucose 118 mg/dL (74-106) H D 03/20/17 05:15 Calcium 8.5 mg/dL (8.5-10.1) 03/20/17 05:15 Total Bilirubin 0.5 mg/dL (0.2-1.0) D 03/20/17 05:15 AST 10 U/L (15-37) L 03/20/17 05:15 ALT 12 U/L (12-78) D 03/20/17 05:15 Alkaline Phosphatase 63 U/L (45-117) 03/20/17 05:15 Total Protein 6.0 g/dl (6.4-8.2) L 03/20/17 05:15 Albumin 2.4 g/dl (3.4-5.0) L 03/20/17 05:15 CARDIAC ENZYMES Creatine Kinase 31 IU/L (39-308) L 03/17/17 23:50 Troponin I < 0.02 ng/ml (0.00-0.05) 03/17/17 23:50 Current Medications Generic Name Dose Route Start Last Admin Trade Name Freq PRN Reason Stop Dose Admin Acetaminophen 650 mg 03/20/17 19:16 03/20/17 21:41 Tylenol - PO 650 mg Q4H PRN Administration FEVER OR PAIN Amino Acids 30 ml 03/21/17 08:00 03/24/17 17:57 Prosource No Carb Liquid Pkt PO 30 ml BID@0800,1730 CARLOS Administration Apixaban 5 mg 03/21/17 10:00 03/24/17 09:23 Eliquis - PO 5 mg DAILY CARLOS Administration Folic Acid 1 mg 03/21/17 10:00 03/24/17 09:23 Folic Acid - PO 1 mg DAILY CARLOS Administration Piperacillin Sod/Tazobactam Sod 50 mls @ 100 mls/hr 03/21/17 02:00 03/23/17 10: 28 Zosyn 3.375gm Ivpb (Pre-Docked) IVPB 100 mls/hr Q8H-IV CARLOS Administration Protocol Vancomycin HCl 1,250 mg/ 250 mls @ 166.667 mls/hr 03/23/17 13:00 03/23/17 14:28 Dextrose IVPB 166.667 mls/hr DAILY CARLOS Administration Protocol Metoprolol Succinate 25 mg 03/20/17 22:00 03/24/17 21:15 Toprol Xl - PO 25 mg BID CARLOS Administration Multivitamins/Minerals/Vitamin C 1 tab 03/21/17 10:00 03/24/17 09:23 Tab-A-Vit - PO 1 tab DAILY CARLOS Administration Mupirocin 1 applic 03/20/17 22:00 03/24/17 21:19 Bactroban 2% Ointment - TP 1 applic BID CARLOS Administration Nystatin 1 applic 03/24/17 22:00 03/24/17 21:16 Mycostatin Cream - TP 1 applic BID CARLOS Administration Ranitidine HCl 150 mg 03/20/17 22:00 03/24/17 21:15 Zantac Oral Solution - PO 150 mg BID CARLOS Administration Sertraline HCl 50 mg 03/21/17 10:00 03/24/17 09:23 Zoloft - PO 50 mg DAILY CARLOS Administration Home Medications Medication Instructions Recorded Apixaban [Eliquis -] 5 mg PO DAILY 01/29/17 Folic Acid 1 mg PO DAILY 01/29/17 Metoprolol Succinate [Toprol Xl -] 25 mg PO BID 01/29/17 Omeprazole 20 mg PO DAILY 01/29/17 Sertraline HCl 50 mg PO DAILY 01/29/17 ASSESSMENT AND PLAN: 86 year-old male with a significant PMH of HTN, DVT/PE on Eliquis, bladder cancer, and dementia who was admitted with sepsis and bacteremia secondary to UTI and possible osteomyelitis. He is s/p ID of left great toe and is awaiting bone scan results to evaluate for possible toe osteomyelitis. # Left great toe cellulitis r/o osteo. Patient is going for Bone Bx in am by , RUBIOO after Midnight toe wound growing pseudomonas, MRSA, Group D strep/enterococc.As per ID to stop all antibiotics and restart post Bx ID is on the cASE. # S/p Sepsis, resolved #Hypertension continue toprol # h/o DVT/PE s/p IVC filter , on Eliquis continue DVT Prophylaxis: on eliquis
[2017-03-25 08:40] LABS: ALBUMIN 2.5 g/dl (3.4-5.0); ANION GAP 8 (8-16); BILIRUBIN,TOTAL 0.4 mg/dL (0.2-1.0); CALCIUM 8.5 mg/dL (8.5-10.1); CO2 29 mmol/L (21-32); CREATININE 0.8 mg/dL (0.7-1.3); GLUCOSE,RANDOM 84 mg/dL (74-106); MAGNESIUM 2.3 mg/dL (1.8-2.4); SGOT/AST 14 U/L (15-37); SGPT/ALT 13 U/L (12-78)
[2017-03-25 08:41] LABS: ALK PHOS 65 U/L (45-117)
[2017-03-25] MEDS: AMINO ACIDS/PROTEIN HYDROLYS 30 ML LIQUID.PKT PO SCH ×2 (08:51→16:51)
[2017-03-25 09:06] LABS: PLATELET ESTIMATE ADEQUATE (NORMAL)
[2017-03-25] MEDS: RANITIDINE HCL 150 MG/10 ML UNIT-DOSE CUP PO SCH ×2 (09:34→22:33)
[2017-03-25] MEDS: APIXABAN 5 MG TABLET PO SCH (09:34)
[2017-03-25] MEDS: FOLIC ACID 1 MG TABLET (FP) PO SCH (09:34)
[2017-03-25] MEDS: SERTRALINE HCL 50 MG TABLET (FP) PO SCH (09:34)
[2017-03-25] MEDS: METOPROLOL SUCCINATE 25 MG TAB.SR.24H (FP) PO SCH ×2 (09:34→22:33)
[2017-03-25] MEDS: MULTIVITAMINS (DAILY MVI) TABLET (FP) PO SCH (09:34)
[2017-03-25] MEDS: MUPIROCIN 2% TOPICAL OINTMENT 22 GM TUBE TP SCH ×2 (09:35→22:00)
[2017-03-25] MEDS: NYSTATIN 100,000 UNIT/GM TOPICAL CREAM 15 GM TUBE TP SCH ×2 (09:36→22:58)
--- NOTE | 2017-03-25 10:36 | PN ---
Physical Exam: SUBJECTIVE: Patient seen and examined by me at bedside. No overnight events noted. Patient offers no complaints. Otherwise, patient denies fever, chills, nausea, vomiting, abdominal pain, chest pain, palpitations, shortness of breath. OBJECTIVE: Vital Signs Period Temp Pulse Resp BP Sys/Austin Pulse Ox Last 24 Hr 98 F-98.4 F 75-81 18-20 110-122/67-77 96 GENERAL: Awake, alert, oriented with mild dementia at baseline. In no acute distress LUNGS: CTA bilaterally with no wheezes, crackles, or rhonchi HEART: RRR, normal S1 and S2, without murmur, rub or gallop. ABDOMEN: Soft, nontender, nondistended, normoactive bowel sounds, no guarding, no rebound. EXTREMITIES: +2 symmetric peripheral pulses in LE bilaterally, +1 bilateral peripheral edema; L toe dressing in place, dry tinted blood SKIN: Stage 1 decubitus ulcer in R groin Laboratory Results - last 24 hr 03/25/17 03/25/17 06:30 06:30 WBC 7.9 RBC 4.30 Hgb 12.2 Hct 37.1 MCV 86.4 MCHC 32.8 RDW 17.5 H Plt Count 201 MPV 8.6 Neutrophils % 67.0 Lymphocytes % 20.0 D Monocytes % 6.0 Eosinophils % 4.0 Basophils % 1.0 D Myelocytes 1 Differential Comment Manual diff done Reactive Lymphocytes 1 Platelet Estimate Adequate Sodium 143 Potassium 4.6 Chloride 106 Carbon Dioxide 29 Anion Gap 8 BUN 28 H D Creatinine 0.8 Creat Clearance w eGFR > 60 Random Glucose 84 D Calcium 8.5 Magnesium 2.3 Total Bilirubin 0.4 AST 14 L D ALT 13 Alkaline Phosphatase 65 Total Protein 6.0 L Albumin 2.5 L Active Medications Generic Name Dose Route Start Last Admin Trade Name Freq PRN Reason Stop Dose Admin Acetaminophen 650 mg 03/20/17 19:16 03/20/17 21:41 Tylenol - PO 650 mg Q4H PRN Administration FEVER OR PAIN Amino Acids 30 ml 03/21/17 08:00 03/25/17 08:51 Prosource No Carb Liquid Pkt PO 30 ml BID@0800,1730 CARLOS Administration Apixaban 5 mg 03/21/17 10:00 03/25/17 09:34 Eliquis - PO 5 mg DAILY CARLOS Administration Folic Acid 1 mg 03/21/17 10:00 03/25/17 09:34 Folic Acid - PO 1 mg DAILY CARLOS Administration Piperacillin Sod/Tazobactam Sod 50 mls @ 100 mls/hr 03/21/17 02:00 03/23/17 10: 28 Zosyn 3.375gm Ivpb (Pre-Docked) IVPB 100 mls/hr Q8H-IV CARLOS Administration Protocol Vancomycin HCl 1,250 mg/ 250 mls @ 166.667 mls/hr 03/23/17 13:00 03/23/17 14:28 Dextrose IVPB 166.667 mls/hr DAILY CARLOS Administration Protocol Metoprolol Succinate 25 mg 03/20/17 22:00 03/25/17 09:34 Toprol Xl - PO 25 mg BID CARLOS Administration Multivitamins/Minerals/Vitamin C 1 tab 03/21/17 10:00 03/25/17 09:34 Tab-A-Vit - PO 1 tab DAILY CARLOS Administration Mupirocin 1 applic 03/20/17 22:00 03/25/17 09:35 Bactroban 2% Ointment - TP 1 applic BID CARLOS Administration Nystatin 1 applic 03/24/17 22:00 03/25/17 09:36 Mycostatin Cream - TP 1 applic BID CARLOS Administration Ranitidine HCl 150 mg 03/20/17 22:00 03/25/17 09:34 Zantac Oral Solution - PO 150 mg BID CARLOS Administration Sertraline HCl 50 mg 03/21/17 10:00 03/25/17 09:34 Zoloft - PO 50 mg DAILY CARLOS Administration IMAGES: Foot X-ray on 03/18: inclusive for osteomyelitis Chest/Abd/Pelvis CT on 03/18: Cystitis, mild diverticulitis, gall stones, IVC filter in place, ankylosing spondylitis, sliding hiatal hernia, enlarged prostate, 5mm non-obstructing renal stone, questionable R kidney stone about 1mm , bilateral renal cysts, no acute pulmonary pathology. Head CT on 03/18: no acute finding Chest X-ray on 03/18: no acute finding ASSESSMENT/PLAN: 86 yo M h/o mild dementia, DVT and PE on eliquis, bladder cancer, diverticulosis , HTN, kidney cysts and stones admitted to the ICU for sepsis. ID: sepsis - Resolved - Likely 2/2 UTI and possible cellulitis vs osteomyelitis in the L great toe * s/p nail avulsion and bedside I&D of L great toe * UC grew pseudomonas sensitive to zosyn and toe wound culture growing MRSA * awaiting bone scan result - Vancomycin and Zosyn on hold for bone biopsy, will resume after bone biopsy , as per ID Neuro: acute toxic metabolic encephalopathy - Resolved - Likely 2/2 sepsis Renal: HTN, nephrolithiasis and cysts - Cont. toprol - Bilateral cysts and non-obstructing stones on CT * No hydronephrosis * No intervention per urology HemOnc: hypercoagulable state h/o bladder CA, DVT and PE - IVC filter identified on CT - Cont. eliquis 5mg PO daily FEN - IVF not indicated - Cont. to monitor lytes - Na+ controlled diet + prosource + multivitamin Prophylaxis - DVT: on eliquis - GI: not indicated Dispo - Awaiting bone scan result and bone biopsy Code status - Full Visit type - Emergency Visit Emergency Visit: Yes ED Registration Date: 03/18/17 Care time: The patient presented to the Emergency Department on the above date and was hospitalized for further evaluation of their emergent condition. - New Patient This patient is new to me today: Yes Date on this admission: 03/25/17 - Critical Care Critical Care patient: No
--- NOTE | 2017-03-25 11:53 | PN ---
Progress Note, Physician History of Present Illness: patient stable no new issues - Current Medication List Current Medications: Active Medications Acetaminophen (Tylenol -) 650 mg PO Q4H PRN PRN Reason: FEVER OR PAIN Last Admin: 03/20/17 21:41 Dose: 650 mg Amino Acids (Prosource No Carb Liquid Pkt) 30 ml PO BID@0800,1730 [facility] Last Admin: 03/25/17 08:51 Dose: 30 ml Apixaban (Eliquis -) 5 mg PO DAILY [facility] Last Admin: 03/25/17 09:34 Dose: 5 mg Folic Acid (Folic Acid -) 1 mg PO DAILY [facility] Last Admin: 03/25/17 09:34 Dose: 1 mg Piperacillin Sod/Tazobactam Sod (Zosyn 3.375gm Ivpb (Pre-Docked)) 50 mls @ 100 mls/hr IVPB Q8H-IV CARLOS PRN Reason: Protocol Last Admin: 03/23/17 10:28 Dose: 100 mls/hr Vancomycin HCl 1,250 mg/ (Dextrose) 250 mls @ 166.667 mls/hr IVPB DAILY CARLOS PRN Reason: Protocol Last Admin: 03/23/17 14:28 Dose: 166.667 mls/hr Metoprolol Succinate (Toprol Xl -) 25 mg PO BID [facility] Last Admin: 03/25/17 09:34 Dose: 25 mg Multivitamins/Minerals/Vitamin C (Tab-A-Vit -) 1 tab PO DAILY [facility] Last Admin: 03/25/17 09:34 Dose: 1 tab Mupirocin (Bactroban 2% Ointment -) 1 applic TP BID [facility] Last Admin: 03/25/17 09:35 Dose: 1 applic Nystatin (Mycostatin Cream -) 1 applic TP BID [facility] Last Admin: 03/25/17 09:36 Dose: 1 applic Ranitidine HCl (Zantac Oral Solution -) 150 mg PO BID [facility] Last Admin: 03/25/17 09:34 Dose: 150 mg Sertraline HCl (Zoloft -) 50 mg PO DAILY [facility] Last Admin: 03/25/17 09:34 Dose: 50 mg - Objective Vital Signs: Vital Signs Temperature 98.4 F 03/25/17 06:00 Pulse Rate 77 03/25/17 06:00 Respiratory Rate 20 03/25/17 06:00 Blood Pressure 122/71 03/25/17 06:00 O2 Sat by Pulse Oximetry (%) 96 03/24/17 21:00 Constitutional: Yes: No Distress, Calm HENT: Yes: Atraumatic, Normocephalic Cardiovascular: Yes: Regular Rate and Rhythm Respiratory: Yes: Regular, CTA Bilaterally Gastrointestinal: Yes: Normal Bowel Sounds, Soft Musculoskeletal: Yes: Other Extremities: Yes: Other Neurological: Yes: Alert Psychiatric: Yes: Alert Labs: CBC, BMP 03/25/17 06:30 03/25/17 06:30 INR, PTT INR 1.75 (0.82-1.09) H 03/17/17 23:50 Assessment/Plan Problem List - Problems (1) DARELL (acute kidney injury) Code(s): N17.9 - ACUTE KIDNEY FAILURE, UNSPECIFIED (2) Sepsis Code(s): A41.9 - SEPSIS, UNSPECIFIED ORGANISM Qualifiers: Sepsis type: sepsis due to unspecified organism Qualified Code(s): A41.9 - Sepsis, unspecified organism (5) Hypertension Code(s): I10 - ESSENTIAL (PRIMARY) HYPERTENSION (6) Renal calculi Code(s): N20.0 - CALCULUS OF KIDNEY 7 uti pseudomonas 8 leukocytosis wound cx result noted plan is for wound biopsy stop all abx wait for biopsy post biopsy restart the abx
[2017-03-26] MEDS: AMINO ACIDS/PROTEIN HYDROLYS 30 ML LIQUID.PKT PO SCH ×2 (08:36→17:10)
[2017-03-26] MEDS: RANITIDINE HCL 150 MG/10 ML UNIT-DOSE CUP PO SCH ×2 (10:31→21:57)
[2017-03-26] MEDS: SERTRALINE HCL 50 MG TABLET (FP) PO SCH (10:31)
[2017-03-26] MEDS: APIXABAN 5 MG TABLET PO SCH (10:31)
[2017-03-26] MEDS: MULTIVITAMINS (DAILY MVI) TABLET (FP) PO SCH (10:31)
[2017-03-26] MEDS: METOPROLOL SUCCINATE 25 MG TAB.SR.24H (FP) PO SCH ×2 (10:31→21:57)
[2017-03-26] MEDS: FOLIC ACID 1 MG TABLET (FP) PO SCH (10:31)
[2017-03-26] MEDS: MUPIROCIN 2% TOPICAL OINTMENT 22 GM TUBE TP SCH (10:32)
[2017-03-26] MEDS: NYSTATIN 100,000 UNIT/GM TOPICAL CREAM 15 GM TUBE TP SCH (10:32)
[2017-03-26] MEDS ORDERED: LIDOCAINE 1%/EPI 1:100000 (50 ML MULTI DOSE VIAL) ONE (12:18)
[2017-03-26] MEDS ORDERED: BACITRACIN 15 GM TUBE TOPICAL OINTMENT ONE (12:19)
[2017-03-26] MEDS ORDERED: MIDAZOLAM HCL 2 MG/2 ML SINGLE DOSE VIAL ONE (12:40)
[2017-03-26] MEDS ORDERED: LIDOCAINE 1%/EPI 1:100000 (50 ML MULTI DOSE VIAL) INF ONE (12:44)
--- NOTE | 2017-03-26 12:57 | OP ---
Operative Note - Note: Operative Date: 03/26/17 Pre-Operative Diagnosis: Possible osteomyelitis Operation: Osseous Biopsy of distal and proximal phalanges left great toe Post-Operative Diagnosis: Same as Pre-op (and pending) Surgeon: Justyn Mendez Anesthesia: MAC Specimens Removed: bone from both phalanges Estimated Blood Loss (mls): 2 Operative Report Dictated: Yes
--- NOTE | 2017-03-26 14:22 | PN ---
Physical Exam: SUBJECTIVE: Patient seen and examined at bedside after bone biopsy. No complaint as usual and no acute overnight events noted. OBJECTIVE: Vital Signs Period Temp Pulse Resp BP Sys/Austin Pulse Ox Last 24 Hr 97.5 F-98.3 F 70-85 16-20 90-126/44-70 95-96 GENERAL: AAO x 3, eating lunch in no acute distress. EYES: PERRLA ENT: oropharynx clear without exudates, moist mucous membranes. LUNGS: CTAB HEART: RRR, S1, S2 without murmur, rub or gallop. ABDOMEN: Soft, nontender, nondistended, normoactive bowel sounds, no guarding, no rebound, no hepatosplenomegaly, no masses. EXTREMITIES: +2 symmetric peripheral pulses in LE bilaterally, +1 bilateral peripheral edema; L toe dressing in place, dry tinted blood SKIN: Stage 1 decubitus ulcer in R groin CBCD WBC 7.9 K/mm3 (4.0-10.0) 03/25/17 06:30 RBC 4.30 M/mm3 (4.00-5.60) 03/25/17 06:30 Hgb 12.2 GM/dL (11.7-16.9) 03/25/17 06:30 Hct 37.1 % (35.4-49) 03/25/17 06:30 MCV 86.4 fl (80-96) 03/25/17 06:30 MCHC 32.8 g/dl (32.0-35.9) 03/25/17 06:30 RDW 17.5 % (11.9-15.9) H 03/25/17 06:30 Plt Count 201 K/MM3 (134-434) 03/25/17 06:30 MPV 8.6 fl (7.5-11.1) 03/25/17 06:30 CMP Sodium 143 mmol/L (136-145) 03/25/17 06:30 Potassium 4.6 mmol/L (3.5-5.1) 03/25/17 06:30 Chloride 106 mmol/L (98-107) 03/25/17 06:30 Carbon Dioxide 29 mmol/L (21-32) 03/25/17 06:30 Anion Gap 8 (8-16) 03/25/17 06:30 BUN 28 mg/dL (7-18) H D 03/25/17 06:30 Creatinine 0.8 mg/dL (0.7-1.3) 03/25/17 06:30 Creat Clearance w eGFR > 60 (>60) 03/25/17 06:30 Calcium 8.5 mg/dL (8.5-10.1) 03/25/17 06:30 Total Bilirubin 0.4 mg/dL (0.2-1.0) 03/25/17 06:30 AST 14 U/L (15-37) L D 03/25/17 06:30 ALT 13 U/L (12-78) 03/25/17 06:30 Alkaline Phosphatase 65 U/L (45-117) 03/25/17 06:30 Total Protein 6.0 g/dl (6.4-8.2) L 03/25/17 06:30 Albumin 2.5 g/dl (3.4-5.0) L 03/25/17 06:30 Active Medications Generic Name Dose Route Start Last Admin Trade Name Freq PRN Reason Stop Dose Admin Acetaminophen 650 mg 03/20/17 19:16 03/20/17 21:41 Tylenol - PO 650 mg Q4H PRN Administration FEVER OR PAIN Amino Acids 30 ml 03/21/17 08:00 03/26/17 08:36 Prosource No Carb Liquid Pkt PO Not Given BID@0800,1730 CARLOS Apixaban 5 mg 03/21/17 10:00 03/26/17 10:31 Eliquis - PO Not Given DAILY CARLOS Folic Acid 1 mg 03/21/17 10:00 03/26/17 10:31 Folic Acid - PO Not Given DAILY CARLOS Piperacillin Sod/Tazobactam Sod 50 mls @ 100 mls/hr 03/21/17 02:00 03/23/17 10: 28 Zosyn 3.375gm Ivpb (Pre-Docked) IVPB 100 mls/hr Q8H-IV CARLOS Administration Protocol Vancomycin HCl 1,250 mg/ 250 mls @ 166.667 mls/hr 03/23/17 13:00 03/23/17 14:28 Dextrose IVPB 166.667 mls/hr DAILY CARLOS Administration Protocol Metoprolol Succinate 25 mg 03/20/17 22:00 03/26/17 10:31 Toprol Xl - PO Not Given BID REPLACED BY [facility] Multivitamins/Minerals/Vitamin C 1 tab 03/21/17 10:00 03/26/17 10:31 Tab-A-Vit - PO Not Given DAILY REPLACED BY [facility] Mupirocin 1 applic 03/20/17 22:00 03/26/17 10:32 Bactroban 2% Ointment - TP 1 applic BID CARLOS Administration Nystatin 1 applic 03/24/17 22:00 03/26/17 10:32 Mycostatin Cream - TP 1 applic BID CARLOS Administration Ranitidine HCl 150 mg 03/20/17 22:00 03/26/17 10:31 Zantac Oral Solution - PO Not Given BID CARLOS Sertraline HCl 50 mg 03/21/17 10:00 03/26/17 10:31 Zoloft - PO Not Given DAILY REPLACED BY [facility] Triple phase bone scan on 03/23: suspected cellulitis and osteomyelitis Foot X-ray on 03/18: inclusive for osteomyelitis Chest/Abd/Pelvis CT on 03/18: Cystitis, mild diverticulitis, gall stones, IVC filter in place, ankylosing spondylitis, sliding hiatal hernia, enlarged prostate, 5mm non-obstructing renal stone, questionable R kidney stone about 1mm , bilateral renal cysts, no acute pulmonary pathology. Head CT on 03/18: no acute finding Chest X-ray on 03/18: no acute finding ASSESSMENT/PLAN: 86 yo M h/o mild dementia, DVT and PE on eliquis, bladder cancer, diverticulosis , HTN, kidney cysts and stones admitted to the ICU for sepsis. ID: sepsis - Resolved - Likely 2/2 UTI or cellulitis or osteomyelitis in the L great toe * s/p nail avulsion, bedside I&D and bone biopsy * UC grew pseudomonas sensitive to zosyn and toe wound culture growing MRSA - Resume prophylactic zosyn 3.375g Q8H (day 7, held since Sunday) and vancomycin (day 2, first dose given on Sunday) - f/u Vanco trough Neuro: acute toxic metabolic encephalopathy - Resolved - Likely 2/2 sepsis Renal: HTN, nephrolithiasis and cysts - Cont. toprol - Bilateral cysts and non-obstructing stones on CT * No hydronephrosis * No intervention per urology HemOnc: hypercoagulable state h/o bladder CA, DVT and PE - IVC filter identified on CT - Cont. eliquis 5mg PO daily FEN - IVF not indicated - Cont. to monitor lytes - Na+ controlled diet + prosource + multivitamin Prophylaxis - DVT: on eliquis - GI: not indicated Dispo - Awaiting bone biopsy result Code status - Full Visit type - Emergency Visit Emergency Visit: No - New Patient This patient is new to me today: No - Critical Care Critical Care patient: No
--- NOTE | 2017-03-26 16:43 | PN ---
Teaching Attending Note Name of Resident: Jakub Loyola ATTENDING PHYSICIAN STATEMENT I saw and evaluated the patient. I reviewed the resident's note and discussed the case with the resident. I agree with the resident's findings and plan as documented. SUBJECTIVE: reports no pain OBJECTIVE: Vital Signs Temperature 98.7 F 03/26/17 14:00 Pulse Rate 69 03/26/17 14:00 Respiratory Rate 18 03/26/17 14:00 Blood Pressure 126/72 03/26/17 14:00 O2 Sat by Pulse Oximetry (%) 95 03/26/17 13:30 CBC, BMP 03/25/17 06:30 GENERAL: Awake, alert, oriented with mild dementia at baseline. In no acute distress LUNGS: CTA bilaterally with no wheezes, crackles, or rhonchi HEART: RRR, normal S1 and S2, without murmur, rub or gallop. ABDOMEN: Soft, nontender, nondistended, normoactive bowel sounds, no guarding, no rebound. EXTREMITIES: +2 symmetric peripheral pulses in LE bilaterally, +1 bilateral peripheral edema; L toe dressing in place, dry tinted blood SKIN: right groin skin candidiasis 03/25/17 06:30 Triple phase bone scan on 03/23: suspected cellulitis and osteomyelitis Foot X-ray on 03/18: inclusive for osteomyelitis Chest/Abd/Pelvis CT on 03/18: Cystitis, mild diverticulitis, gall stones, IVC filter in place, ankylosing spondylitis, sliding hiatal hernia, enlarged prostate, 5mm non-obstructing renal stone, questionable R kidney stone about 1mm , bilateral renal cysts, no acute pulmonary pathology. Head CT on 03/18: no acute finding Chest X-ray on 03/18: no acute finding ASSESSMENT AND PLAN: #Cellulitis and possible osteomyelitis in the L great toe s/p nail avulsion, wound culture growing MRSA, s/p bone biopsy today - IV AB are restarted after biopsy #UTI - pseudomonas- resolving #HemOnc: hypercoagulable state h/o bladder CA, DVT and PE -has IVC filter - on eliquis 5mg PO daily # deconditioning - needs PT /OT OOB to chair TID
--- NOTE | 2017-03-26 16:59 | PN ---
Progress Note, Physician History of Present Illness: stable no new issues biopsy done today - Current Medication List Current Medications: Active Medications Acetaminophen (Tylenol -) 650 mg PO Q4H PRN PRN Reason: FEVER OR PAIN Last Admin: 03/20/17 21:41 Dose: 650 mg Amino Acids (Prosource No Carb Liquid Pkt) 30 ml PO BID@0800,1730 [facility] Last Admin: 03/26/17 08:36 Dose: Not Given Apixaban (Eliquis -) 5 mg PO DAILY [facility] Last Admin: 03/26/17 10:31 Dose: Not Given Folic Acid (Folic Acid -) 1 mg PO DAILY [facility] Last Admin: 03/26/17 10:31 Dose: Not Given Piperacillin Sod/Tazobactam Sod (Zosyn 3.375gm Ivpb (Pre-Docked)) 50 mls @ 100 mls/hr IVPB Q8H-IV [facility] PRN Reason: Protocol Last Admin: 03/23/17 10:28 Dose: 100 mls/hr Vancomycin HCl 1,250 mg/ (Dextrose) 250 mls @ 166.667 mls/hr IVPB DAILY [facility] PRN Reason: Protocol Last Admin: 03/23/17 14:28 Dose: 166.667 mls/hr Metoprolol Succinate (Toprol Xl -) 25 mg PO BID [facility] Last Admin: 03/26/17 10:31 Dose: Not Given Multivitamins/Minerals/Vitamin C (Tab-A-Vit -) 1 tab PO DAILY [facility] Last Admin: 03/26/17 10:31 Dose: Not Given Mupirocin (Bactroban 2% Ointment -) 1 applic TP BID [facility] Last Admin: 03/26/17 10:32 Dose: 1 applic Nystatin (Mycostatin Cream -) 1 applic TP BID [facility] Last Admin: 03/26/17 10:32 Dose: 1 applic Ranitidine HCl (Zantac Oral Solution -) 150 mg PO BID [facility] Last Admin: 03/26/17 10:31 Dose: Not Given Sertraline HCl (Zoloft -) 50 mg PO DAILY [facility] Last Admin: 03/26/17 10:31 Dose: Not Given - Objective Vital Signs: Vital Signs Temperature 98.7 F 03/26/17 14:00 Pulse Rate 69 03/26/17 14:00 Respiratory Rate 18 03/26/17 14:00 Blood Pressure 126/72 03/26/17 14:00 O2 Sat by Pulse Oximetry (%) 95 03/26/17 13:30 Constitutional: Yes: No Distress, Calm HENT: Yes: Atraumatic, Normocephalic Cardiovascular: Yes: S1, S2 Respiratory: Yes: Regular, CTA Bilaterally Gastrointestinal: Yes: Normal Bowel Sounds, Soft Musculoskeletal: Yes: Other Extremities: Yes: Other Neurological: Yes: Alert, Oriented Psychiatric: Yes: Alert Labs: CBC, BMP 03/25/17 06:30 03/25/17 06:30 INR, PTT INR 1.75 (0.82-1.09) H 03/17/17 23:50 Assessment/Plan Problem List - Problems (1) DARELL (acute kidney injury) Code(s): N17.9 - ACUTE KIDNEY FAILURE, UNSPECIFIED (2) Sepsis Code(s): A41.9 - SEPSIS, UNSPECIFIED ORGANISM Qualifiers: Sepsis type: sepsis due to unspecified organism Qualified Code(s): A41.9 - Sepsis, unspecified organism (5) Hypertension Code(s): I10 - ESSENTIAL (PRIMARY) HYPERTENSION (6) Renal calculi Code(s): N20.0 - CALCULUS OF KIDNEY 7 uti pseudomonas 8 leukocytosis wound cx result noted plan start all abx today await for biopsy result depending on that further treatment will depend rest as per primary
[2017-03-26] MEDS: PIPERACILLIN/TAZOB 3.375 GM 50 ML IVPB SCH (17:10)
[2017-03-27] MEDS: MUPIROCIN 2% TOPICAL OINTMENT 22 GM TUBE TP SCH ×3 (01:32→22:16)
[2017-03-27] MEDS: NYSTATIN 100,000 UNIT/GM TOPICAL CREAM 15 GM TUBE TP SCH ×3 (01:34→22:17)
[2017-03-27] MEDS: PIPERACILLIN/TAZOB 3.375 GM 50 ML IVPB SCH ×3 (01:35→17:42)
--- NOTE | 2017-03-27 08:10 | PN ---
Progress Note (short form) - Note Progress Note: Post op day#1.S/P Left big toe bone biopsy under MAC uneventful.Patient stable.No any anesthesia related problem.Patient DC from the anesthesia care.
[2017-03-27] MEDS ORDERED: ACETAMINOPHEN 325 MG TABLET (FP) PO PRN (08:48)
[2017-03-27] MEDS ORDERED: APIXABAN 5 MG TABLET PO SCH (10:00)
[2017-03-27] MEDS: RANITIDINE HCL 150 MG/10 ML UNIT-DOSE CUP PO SCH ×2 (10:23→22:16)
[2017-03-27] MEDS: MULTIVITAMINS (DAILY MVI) TABLET (FP) PO SCH (10:23)
[2017-03-27] MEDS: FOLIC ACID 1 MG TABLET (FP) PO SCH (10:23)
[2017-03-27] MEDS: SERTRALINE HCL 50 MG TABLET (FP) PO SCH (10:23)
[2017-03-27] MEDS: METOPROLOL SUCCINATE 25 MG TAB.SR.24H (FP) PO SCH ×2 (10:24→22:16)
[2017-03-27] MEDS: VANCOMYCIN 1,250 MG in DEXTROSE 5%-WATER - 250 ML IVPB SCH (10:29)
--- NOTE | 2017-03-27 10:58 | PN ---
Physical Exam: SUBJECTIVE: Patient seen and examined at bedside. No complaint as usual and no acute overnight events noted. OBJECTIVE: Vital Signs Period Temp Pulse Resp BP Sys/[place] Pulse Ox Last 24 Hr 97.7 F-98.7 F 58-93 16-20 106-139/60-77 95-96 GENERAL: AAO x 3, eating lunch in no acute distress. EYES: PERRLA ENT: oropharynx clear without exudates, moist mucous membranes. LUNGS: CTAB HEART: RRR, S1, S2 without murmur, rub or gallop. ABDOMEN: Soft, nontender, nondistended, normoactive bowel sounds, no guarding, no rebound, no hepatosplenomegaly, no masses. EXTREMITIES: +2 symmetric peripheral pulses in LE bilaterally, +1 bilateral peripheral edema; L toe dressing in place, dry tinted blood SKIN: Stage 1 decubitus ulcer in R groin Active Medications Generic Name Dose Route Start Last Admin Trade Name Freq PRN Reason Stop Dose Admin Acetaminophen 650 mg 03/27/17 08:48 Tylenol - PO Q4H PRN FEVER OR PAIN Amino Acids 30 ml 03/27/17 17:30 Prosource No Carb Liquid Pkt PO BID@0800,1730 [facility] Apixaban 5 mg 03/27/17 10:00 Eliquis - PO DAILY [facility] Folic Acid 1 mg 03/27/17 10:00 03/27/17 10:23 Folic Acid - PO 1 mg DAILY [facility] Administration Vancomycin HCl 1,250 mg/ 250 mls @ 166.667 mls/hr 03/27/17 10:00 03/27/17 10:29 Dextrose IVPB 166.667 mls/hr DAILY [facility] Administration Protocol Piperacillin Sod/Tazobactam Sod 50 mls @ 100 mls/hr 03/27/17 10:00 03/27/17 09: 24 Zosyn 3.375gm Ivpb (Pre-Docked) IVPB 100 mls/hr Q8H-IV CARLOS Administration Protocol Metoprolol Succinate 25 mg 03/27/17 10:00 03/27/17 10:24 Toprol Xl - PO 25 mg BID [facility] Administration Multivitamins/Minerals/Vitamin C 1 tab 03/27/17 10:00 03/27/17 10:23 Tab-A-Vit - PO 1 tab DAILY [facility] Administration Mupirocin 1 applic 03/27/17 10:00 03/27/17 10:25 Bactroban 2% Ointment - TP 1 applic BID [facility] Administration Nystatin 1 applic 03/27/17 10:00 03/27/17 10:25 Mycostatin Cream - TP 1 applic BID [facility] Administration Ranitidine HCl 150 mg 03/27/17 10:00 03/27/17 10:23 Zantac Oral Solution - PO 150 mg BID [facility] Administration Sertraline HCl 50 mg 03/27/17 10:00 03/27/17 10:23 Zoloft - PO 50 mg DAILY [facility] Administration IMAGING Triple phase bone scan on 03/23: suspected cellulitis and osteomyelitis Foot X-ray on 03/18: inclusive for osteomyelitis Chest/Abd/Pelvis CT on 03/18: Cystitis, mild diverticulitis, gall stones, IVC filter in place, ankylosing spondylitis, sliding hiatal hernia, enlarged prostate, 5mm non-obstructing renal stone, questionable R kidney stone about 1mm , bilateral renal cysts, no acute pulmonary pathology. Head CT on 03/18: no acute finding Chest X-ray on 03/18: no acute finding ASSESSMENT/PLAN: 86 yo M h/o mild dementia, DVT and PE on eliquis, bladder cancer, diverticulosis , HTN, kidney cysts and stones admitted to the ICU for sepsis. ID: sepsis - Resolved - Likely 2/2 UTI or cellulitis or osteomyelitis in the L great toe * s/p nail avulsion, bedside I&D and bone biopsy * UC grew pseudomonas sensitive to zosyn and toe wound culture growing MRSA - Resume prophylactic zosyn 3.375g Q8H (day 8, held since Sunday) and vancomycin (day 2, first dose given on Sunday) - Vanco trough on Neuro: acute toxic metabolic encephalopathy - Resolved - Likely 2/2 sepsis Renal: HTN, nephrolithiasis and cysts - Cont. toprol - Bilateral cysts and non-obstructing stones on CT * No hydronephrosis * No intervention per urology HemOnc: hypercoagulable state h/o bladder CA, DVT and PE - IVC filter identified on CT - Cont. eliquis 5mg PO daily FEN - IVF not indicated - Cont. to monitor lytes - Na+ controlled diet + prosource + multivitamin Prophylaxis - DVT: on eliquis - GI: not indicated Dispo - Awaiting bone biopsy result Code status - Full Visit type - Emergency Visit Emergency Visit: No - New Patient This patient is new to me today: No - Critical Care Critical Care patient: No
[2017-03-27] MEDS: AMINO ACIDS/PROTEIN HYDROLYS 30 ML LIQUID.PKT PO SCH ×2 (11:36→17:57)
--- NOTE | 2017-03-27 13:46 | PN ---
Teaching Attending Note Name of Resident: Jakub Loyola ATTENDING PHYSICIAN STATEMENT I saw and evaluated the patient. I reviewed the resident's note and discussed the case with the resident. I agree with the resident's findings and plan as documented. SUBJECTIVE: Patient has no complaints. OBJECTIVE: Vital Signs Period Temp Pulse Resp BP Sys/[place] Pulse Ox Last 24 Hr 97.7 F-98.7 F 58-93 18-20 108-139/62-77 HEART: S1S2, RRR LUNGS: Bibasilar crackles ABDOMEN: Soft, non-tender, non-distended, normal BS EXTREMITIES Trace edema ASSESSMENT AND PLAN: This is an 86 year old man with a history of dementia, DVT/PE, bladder cancer, HTN, kidney stones, who presented to the ER with lethargy, fever and confusion 1. Sepsis secondary to Pseudomonas UTI, acute diverticulitis, cellulitis and possible osteomyelitis of left first toe - Afebrile, WBC improved - Wound culture growing MRSA - Continue Zosyn, Vancomycin - Blood cultures negative - s/p bone biopsy 03/26 - cultures negative after 24 hrs. 2. Acute metabolic encephalopathy secondary to sepsis - Improved 3. Bilateral renal/ureteral stones 4. Bilateral renal cysts 5. HTN - Continue Toprol XL 6. Dementia 7. Bladder cancer 8. History of DVT/PE - Continue Eliquis - Has IVC filter 9. Right groin wound - Wound care
--- NOTE | 2017-03-27 14:28 | OP ---
DATE OF OPERATION: 03/26/2017 PROCEDURE: Bone biopsy of the great toe of the left foot. PREOPERATIVE DIAGNOSIS: Possible osteomyelitis. POSTOPERATIVE DIAGNOSIS: Possible osteomyelitis and pending. ANESTHESIA: Sedated with local infiltration with monitored anesthesia care. SURGEON: Dr. Segun Mendez. CLINICAL INDICATIONS OF PROCEDURE: The patient who had an infection at the great toe of the left foot and has had a recent incision and drainage and also debridement has a positive 3-phase bone scan which could possibly indicate osteomyelitis. The procedure is to either rule it out or to assess the causative organism(s). PROCEDURE IN DETAIL: After prepping the patient in the usual manner, attention was directed to the great toe of the left foot where an incision was made on the dorsal nail bed through normal epithelialized skin. Using a Jamshidi type needle, a sample of bone was taken from the distal phalanx. Please note that the bone at the distal phalanx seemed very soft. The wound was then flushed and then skin was closed in the usual manner. The identical procedure was performed on the distal portion of the proximal phalanx through normal skin. It was noted that bone there, as compared to the distal phalanx, seemed to be of normal density . SEGUN MENDEZ DPM [id number] MTDD
--- NOTE | 2017-03-27 16:04 | PN ---
Progress Note, Physician History of Present Illness: stable no new issues post biopsy - Current Medication List Current Medications: Active Medications Acetaminophen (Tylenol -) 650 mg PO Q4H PRN PRN Reason: FEVER OR PAIN Amino Acids (Prosource No Carb Liquid Pkt) 30 ml PO BID@0800,1730 [facility] Apixaban (Eliquis -) 5 mg PO DAILY [facility] Folic Acid (Folic Acid -) 1 mg PO DAILY [facility] Last Admin: 03/27/17 10:23 Dose: 1 mg Vancomycin HCl 1,250 mg/ (Dextrose) 250 mls @ 166.667 mls/hr IVPB DAILY [facility] PRN Reason: Protocol Last Admin: 03/27/17 10:29 Dose: 166.667 mls/hr Piperacillin Sod/Tazobactam Sod (Zosyn 3.375gm Ivpb (Pre-Docked)) 50 mls @ 100 mls/hr IVPB Q8H-IV [facility] PRN Reason: Protocol Last Admin: 03/27/17 09:24 Dose: 100 mls/hr Metoprolol Succinate (Toprol Xl -) 25 mg PO BID [facility] Last Admin: 03/27/17 10:24 Dose: 25 mg Multivitamins/Minerals/Vitamin C (Tab-A-Vit -) 1 tab PO DAILY [facility] Last Admin: 03/27/17 10:23 Dose: 1 tab Mupirocin (Bactroban 2% Ointment -) 1 applic TP BID [facility] Last Admin: 03/27/17 10:25 Dose: 1 applic Nystatin (Mycostatin Cream -) 1 applic TP BID [facility] Last Admin: 03/27/17 10:25 Dose: 1 applic Ranitidine HCl (Zantac Oral Solution -) 150 mg PO BID [facility] Last Admin: 03/27/17 10:23 Dose: 150 mg Sertraline HCl (Zoloft -) 50 mg PO DAILY [facility] Last Admin: 03/27/17 10:23 Dose: 50 mg - Objective Vital Signs: Vital Signs Temperature 97.5 F L 03/27/17 15:10 Pulse Rate 78 03/27/17 15:10 Respiratory Rate 18 03/27/17 15:10 Blood Pressure 95/61 03/27/17 15:10 O2 Sat by Pulse Oximetry (%) 95 03/26/17 13:30 Constitutional: Yes: No Distress, Calm Cardiovascular: Yes: Regular Rate and Rhythm Respiratory: Yes: Regular, CTA Bilaterally Gastrointestinal: Yes: Normal Bowel Sounds, Soft Extremities: Yes: Other Integumentary: Yes: Other Wound/Incision: Yes: Dressing Dry and Intact Labs: CBC, BMP 03/25/17 06:30 03/25/17 06:30 INR, PTT INR 1.75 (0.82-1.09) H 03/17/17 23:50 Assessment/Plan Problem List - Problems (1) DARELL (acute kidney injury) Code(s): N17.9 - ACUTE KIDNEY FAILURE, UNSPECIFIED (2) Sepsis Code(s): A41.9 - SEPSIS, UNSPECIFIED ORGANISM Qualifiers: Sepsis type: sepsis due to unspecified organism Qualified Code(s): A41.9 - Sepsis, unspecified organism (5) Hypertension Code(s): I10 - ESSENTIAL (PRIMARY) HYPERTENSION (6) Renal calculi Code(s): N20.0 - CALCULUS OF KIDNEY 7 uti pseudomonas 8 leukocytosis wound cx result noted plan continue abx await for patho report after that will decide further mgmt
[2017-03-28] MEDS: PIPERACILLIN/TAZOB 3.375 GM 50 ML IVPB SCH ×3 (02:00→17:36)
[2017-03-28] MEDS: AMINO ACIDS/PROTEIN HYDROLYS 30 ML LIQUID.PKT PO SCH ×2 (08:09→17:36)
[2017-03-28] MEDS: RANITIDINE HCL 150 MG/10 ML UNIT-DOSE CUP PO SCH ×2 (10:09→22:15)
[2017-03-28] MEDS: FOLIC ACID 1 MG TABLET (FP) PO SCH (10:09)
[2017-03-28] MEDS: SERTRALINE HCL 50 MG TABLET (FP) PO SCH (10:09)
[2017-03-28] MEDS: APIXABAN 5 MG TABLET PO SCH ×2 (10:10→22:15)
[2017-03-28] MEDS: MULTIVITAMINS (DAILY MVI) TABLET (FP) PO SCH (10:10)
[2017-03-28] MEDS: METOPROLOL SUCCINATE 25 MG TAB.SR.24H (FP) PO SCH ×2 (10:10→22:15)
[2017-03-28] MEDS: NYSTATIN 100,000 UNIT/GM TOPICAL CREAM 15 GM TUBE TP SCH ×2 (10:11→22:18)
[2017-03-28] MEDS: VANCOMYCIN 1,250 MG in DEXTROSE 5%-WATER - 250 ML IVPB SCH (10:11)
[2017-03-28] MEDS: MUPIROCIN 2% TOPICAL OINTMENT 22 GM TUBE TP SCH ×2 (10:11→22:17)
--- NOTE | 2017-03-28 13:47 | PN ---
Progress Note, Physician History of Present Illness: no new issues awaiting final results - Current Medication List Current Medications: Active Medications Acetaminophen (Tylenol -) 650 mg PO Q4H PRN PRN Reason: FEVER OR PAIN Amino Acids (Prosource No Carb Liquid Pkt) 30 ml PO BID@0800,1730 [facility] Last Admin: 03/28/17 08:09 Dose: 30 ml Apixaban (Eliquis -) 5 mg PO BID [facility] Last Admin: 03/28/17 10:10 Dose: 5 mg Folic Acid (Folic Acid -) 1 mg PO DAILY [facility] Last Admin: 03/28/17 10:09 Dose: 1 mg Vancomycin HCl 1,250 mg/ (Dextrose) 250 mls @ 166.667 mls/hr IVPB DAILY [facility] PRN Reason: Protocol Last Admin: 03/28/17 10:11 Dose: 166.667 mls/hr Piperacillin Sod/Tazobactam Sod (Zosyn 3.375gm Ivpb (Pre-Docked)) 50 mls @ 100 mls/hr IVPB Q8H-IV [facility] PRN Reason: Protocol Last Admin: 03/28/17 09:09 Dose: 100 mls/hr Metoprolol Succinate (Toprol Xl -) 25 mg PO BID [facility] Last Admin: 03/28/17 10:10 Dose: 25 mg Multivitamins/Minerals/Vitamin C (Tab-A-Vit -) 1 tab PO DAILY [facility] Last Admin: 03/28/17 10:10 Dose: 1 tab Mupirocin (Bactroban 2% Ointment -) 1 applic TP BID [facility] Last Admin: 03/28/17 10:11 Dose: 1 applic Nystatin (Mycostatin Cream -) 1 applic TP BID [facility] Last Admin: 03/28/17 10:11 Dose: 1 applic Ranitidine HCl (Zantac Oral Solution -) 150 mg PO BID [facility] Last Admin: 03/28/17 10:09 Dose: 150 mg Sertraline HCl (Zoloft -) 50 mg PO DAILY [facility] Last Admin: 03/28/17 10:09 Dose: 50 mg - Objective Vital Signs: Vital Signs Temperature 97.9 F 03/28/17 06:51 Pulse Rate 72 03/28/17 06:51 Respiratory Rate 20 03/28/17 06:51 Blood Pressure 115/72 03/28/17 06:51 O2 Sat by Pulse Oximetry (%) 95 03/26/17 13:30 Constitutional: Yes: No Distress, Calm Cardiovascular: Yes: Regular Rate and Rhythm Respiratory: Yes: Regular, CTA Bilaterally Gastrointestinal: Yes: Normal Bowel Sounds, Soft Musculoskeletal: Yes: Other Extremities: Yes: Other Neurological: Yes: Alert, Oriented Psychiatric: Yes: Alert Labs: CBC, BMP 03/25/17 06:30 03/25/17 06:30 INR, PTT INR 1.75 (0.82-1.09) H 03/17/17 23:50 Assessment/Plan Problem List - Problems (1) DARELL (acute kidney injury) Code(s): N17.9 - ACUTE KIDNEY FAILURE, UNSPECIFIED (2) Sepsis Code(s): A41.9 - SEPSIS, UNSPECIFIED ORGANISM Qualifiers: Sepsis type: sepsis due to unspecified organism Qualified Code(s): A41.9 - Sepsis, unspecified organism (5) Hypertension Code(s): I10 - ESSENTIAL (PRIMARY) HYPERTENSION (6) Renal calculi Code(s): N20.0 - CALCULUS OF KIDNEY 7 uti pseudomonas 8 leukocytosis wound cx result noted plan continue abx awaiting path report
--- NOTE | 2017-03-28 14:20 | PN ---
Physical Exam: SUBJECTIVE: Patient seen and examined at bedside. Pleasant and in good spirits. No complaint as usual and no acute overnight events noted OBJECTIVE: Vital Signs Period Temp Pulse Resp BP Sys/[place] Pulse Ox Last 24 Hr 96.7 F-97.9 F 72-78 18-20 95-115/61-72 GENERAL: AAO x 3, eating lunch in no acute distress. EYES: PERRLA ENT: oropharynx clear without exudates, moist mucous membranes. LUNGS: CTAB HEART: RRR, S1, S2 without murmur, rub or gallop. ABDOMEN: Soft, nontender, nondistended, normoactive bowel sounds, no guarding, no rebound, no hepatosplenomegaly, no masses. EXTREMITIES: +2 symmetric peripheral pulses in LE bilaterally; L toe dressing in place SKIN: Stage 1 decubitus ulcer in R groin Active Medications Generic Name Dose Route Start Last Admin Trade Name Freq PRN Reason Stop Dose Admin Acetaminophen 650 mg 03/27/17 08:48 Tylenol - PO Q4H PRN FEVER OR PAIN Amino Acids 30 ml 03/27/17 17:30 03/28/17 08:09 Prosource No Carb Liquid Pkt PO 30 ml BID@0800,1730 [facility] Administration Apixaban 5 mg 03/28/17 10:00 03/28/17 10:10 Eliquis - PO 5 mg BID [facility] Administration Folic Acid 1 mg 03/27/17 10:00 03/28/17 10:09 Folic Acid - PO 1 mg DAILY [facility] Administration Vancomycin HCl 1,250 mg/ 250 mls @ 166.667 mls/hr 03/27/17 10:00 03/28/17 10:11 Dextrose IVPB 166.667 mls/hr DAILY [facility] Administration Protocol Piperacillin Sod/Tazobactam Sod 50 mls @ 100 mls/hr 03/27/17 10:00 03/28/17 09: 09 Zosyn 3.375gm Ivpb (Pre-Docked) IVPB 100 mls/hr Q8H-IV [facility]OS Administration Protocol Metoprolol Succinate 25 mg 03/27/17 10:00 03/28/17 10:10 Toprol Xl - PO 25 mg BID [facility] Administration Multivitamins/Minerals/Vitamin C 1 tab 03/27/17 10:00 03/28/17 10:10 Tab-A-Vit - PO 1 tab DAILY [facility] Administration Mupirocin 1 applic 03/27/17 10:00 03/28/17 10:11 Bactroban 2% Ointment - TP 1 applic BID [facility] Administration Nystatin 1 applic 03/27/17 10:00 03/28/17 10:11 Mycostatin Cream - TP 1 applic BID [facility] Administration Ranitidine HCl 150 mg 03/27/17 10:00 03/28/17 10:09 Zantac Oral Solution - PO 150 mg BID [facility] Administration Sertraline HCl 50 mg 03/27/17 10:00 03/28/17 10:09 Zoloft - PO 50 mg DAILY [facility] Administration Microbiology 03/26/17 12:53 Gram Stain - Final Bone Tissue Culture - Final NO GROWTH OF AEROBIC ORGANISMS AFTER 48 HOURS INCUBATION Anaerobic Culture - Final NO ANAEROBES WERE ISOLATED 03/26/17 12:52 Gram Stain - Final Bone Tissue Culture - Final NO GROWTH OF AEROBIC ORGANISMS AFTER 48 HOURS INCUBATION Anaerobic Culture - Final NO ANAEROBES WERE ISOLATED IMAGING Triple phase bone scan on 03/23: suspected cellulitis and osteomyelitis Foot X-ray on 03/18: inclusive for osteomyelitis Chest/Abd/Pelvis CT on 03/18: Cystitis, mild diverticulitis, gall stones, IVC filter in place, ankylosing spondylitis, sliding hiatal hernia, enlarged prostate, 5mm non-obstructing renal stone, questionable R kidney stone about 1mm , bilateral renal cysts, no acute pulmonary pathology. Head CT on 03/18: no acute finding Chest X-ray on 03/18: no acute finding ASSESSMENT/PLAN: 86 yo M h/o mild dementia, DVT and PE on eliquis, bladder cancer, diverticulosis , HTN, kidney cysts and stones admitted to the ICU for sepsis. ID: sepsis - Resolved - Likely 2/2 UTI or cellulitis * s/p nail avulsion, bedside I&D and bone biopsy * repeated cultures negative * osteomyelitis less likely per podiatry - On zosyn 3.375g Q8H (day 9, held since Sunday) and vancomycin (day 3, first dose given on Sunday) - Vanco trough on Neuro: acute toxic metabolic encephalopathy - Resolved - Likely 2/2 sepsis Renal: HTN, nephrolithiasis and cysts - Cont. toprol - Bilateral cysts and non-obstructing stones on CT * No hydronephrosis * No intervention per urology HemOnc: hypercoagulable state h/o bladder CA, DVT and PE - IVC filter identified on CT - Cont. eliquis 5mg PO BID FEN - IVF not indicated - Cont. to monitor lytes - Na+ controlled diet + prosource + multivitamin Prophylaxis - DVT: on eliquis - GI: not indicated Dispo - Discharge tomorrow Code status - Full Visit type - Emergency Visit Emergency Visit: No - New Patient This patient is new to me today: No - Critical Care Critical Care patient: No
--- NOTE | 2017-03-28 17:10 | PN ---
Teaching Attending Note Name of Resident: Jakub Loyola ATTENDING PHYSICIAN STATEMENT I saw and evaluated the patient. I reviewed the resident's note and discussed the case with the resident. I agree with the resident's findings and plan as documented. SUBJECTIVE: No complaints. OBJECTIVE: Vital Signs Period Temp Pulse Resp BP Sys/[place] Pulse Ox Last 24 Hr 96.7 F-98.0 F 72-83 20-20 110-115/68-73 HEART: S1S2, RRR LUNGS: Clear ABDOMEN: Soft, non-tender, non-distended, normal BS EXTREMITIES: Trace edema ASSESSMENT AND PLAN: This is an 86 year old man with a history of dementia, DVT/PE, bladder cancer, HTN, kidney stones, who presented to the ER with lethargy, fever and confusion 1. Sepsis secondary to Pseudomonas UTI, acute diverticulitis, cellulitis and possible osteomyelitis of left first toe - Afebrile, WBC improved - Wound culture growing MRSA - Continue Zosyn, Vancomycin - Blood cultures negative - s/p bone biopsy 03/26 - cultures negative after 48 hrs. 2. Acute metabolic encephalopathy secondary to sepsis - Improved 3. Bilateral renal/ureteral stones 4. Bilateral renal cysts 5. HTN - Continue Toprol XL 6. Dementia 7. Bladder cancer 8. History of DVT/PE - Continue Eliquis - Has IVC filter 9. Right groin wound - Wound care
[2017-03-29] MEDS: PIPERACILLIN/TAZOB 3.375 GM 50 ML IVPB SCH ×2 (01:35→10:38)
--- NOTE | 2017-03-29 04:21 | PN ---
Progress Note (short form) - Note Progress Note: In light of negative great toe osseous cultures - believe safe to discharge . Will need 2 week f/u with PCP for suture removal from left great toe.
[2017-03-29] MEDS: AMINO ACIDS/PROTEIN HYDROLYS 30 ML LIQUID.PKT PO SCH (08:13)
[2017-03-29] MEDS ORDERED: PT OWN MED DRAWER 7, Y5N ONE (09:28)
[2017-03-29] MEDS: APIXABAN 5 MG TABLET PO SCH (09:38)
[2017-03-29] MEDS: MULTIVITAMINS (DAILY MVI) TABLET (FP) PO SCH (09:38)
[2017-03-29] MEDS: FOLIC ACID 1 MG TABLET (FP) PO SCH (09:38)
[2017-03-29] MEDS: RANITIDINE HCL 150 MG/10 ML UNIT-DOSE CUP PO SCH (09:39)
[2017-03-29] MEDS: METOPROLOL SUCCINATE 25 MG TAB.SR.24H (FP) PO SCH (09:39)
[2017-03-29] MEDS: SERTRALINE HCL 50 MG TABLET (FP) PO SCH (09:39)
[2017-03-29] MEDS: VANCOMYCIN 1,250 MG in DEXTROSE 5%-WATER - 250 ML IVPB SCH (09:39)
[2017-03-29] MEDS: NYSTATIN 100,000 UNIT/GM TOPICAL CREAM 15 GM TUBE TP SCH (09:40)
--- NOTE | 2017-03-29 10:54 | PN ---
Teaching Attending Note Name of Resident: Jakub Loyola ATTENDING PHYSICIAN STATEMENT I saw and evaluated the patient. I reviewed the resident's note and discussed the case with the resident. I agree with the resident's findings and plan as documented. SUBJECTIVE: Patient has no complaints. OBJECTIVE: Vital Signs Period Temp Pulse Resp BP Sys/[place] Pulse Ox Last 24 Hr 98 F-99.1 F 71-83 18-20 95-113/58-73 97 HEART: S1S2, RRR LUNGS: Clear ABDOMEN: Soft, non-tender, non-distended, normal BS EXTREMITIES: Trace edema ASSESSMENT AND PLAN: This is an 86 year old man with a history of dementia, DVT/PE, bladder cancer, HTN, kidney stones, who presented to the ER with lethargy, fever and confusion 1. Sepsis secondary to Pseudomonas UTI, acute diverticulitis, cellulitis and possible osteomyelitis of left first toe - Afebrile, WBC improved - Wound culture growing MRSA - On Zosyn, Vancomycin - ID follow up for need for antibiotics at discharge - Blood cultures negative - s/p bone biopsy 03/26 - cultures negative after 48 hrs. 2. Acute metabolic encephalopathy secondary to sepsis - Improved 3. Bilateral renal/ureteral stones 4. Bilateral renal cysts 5. HTN - Continue Toprol XL 6. Dementia 7. Bladder cancer 8. History of DVT/PE - Continue Eliquis - Has IVC filter 9. Right groin wound - Wound care
--- NOTE | 2017-03-29 11:47 | DS ---
Physical Exam: SUBJECTIVE: Patient seen and examined at bedside. No complaint as usual and no acute overnight events noted OBJECTIVE: Vital Signs Period Temp Pulse Resp BP Sys/[place] Pulse Ox Last 24 Hr 97.5 F-99.1 F 68-83 18-20 95-119/58-73 97 PHYSICAL EXAM GENERAL: AAO x 3, eating lunch in no acute distress. EYES: PERRLA ENT: oropharynx clear without exudates, moist mucous membranes. LUNGS: CTAB HEART: RRR, S1, S2 without murmur, rub or gallop. ABDOMEN: Soft, nontender, nondistended, normoactive bowel sounds, no guarding, no rebound, no hepatosplenomegaly, no masses. EXTREMITIES: +2 symmetric peripheral pulses in LE bilaterally; L toe dressing in place SKIN: Stage 1 decubitus ulcer in R groin LABS HOSPITAL COURSE: Date of Admission:03/18/17 86 yo M h/o mild dementia, DVT and PE on eliquis, bladder cancer, diverticulosis , HTN, kidney cysts and stones admitted to the ICU for sepsis. His sepsis was likely due to UTI or cellulitis of his L great toe. Airframe Design Engineer performed nail avulsion and bedside I&D. First wound and tissue cultures grew pseudomonas, MRSA and enterococcus. He was treated with zosyn for 10 days and vanco for 3 days and underwent further debridement. X-ray of the foot was inconclusive for osteomyelitis and bone scan shows "suspected cellulitis and osteomyelitis". I spoke to Dr Mendez on the phone and he does not think patient has osteomyelitis in light of negative repeated cultures and surgical findings during debridement. Therefore, bone biopsy was not done. While waiting on cultures, patient has been stable, no fever and chills recorded. Per ID, he will need doxycycline 100mg twice a day for 7 more days on discharge. He will also need to see his PMD within 2 weeks to remove the 2 sutures in his L great toe. Date of Discharge: 03/29/17 Minutes to complete discharge: 35 Discharge Summary Reason For Visit: SEPSIS Current Active Problems DARELL (acute kidney injury) (Acute) Bladder carcinoma (Acute) Renal calculi (Acute) Sepsis (Acute) Condition: Stable - Instructions Diet, Activity, Other Instructions: Instruction for continuing care: You were admitted to the hospital for sepsis likely due to toe infection and urinary tract infection. You were treated with antibiotics and the refrigerator glazier performed incision and drainage and nail avulsion on the left great toe. You are now in stable condition to be discharged home. You will need to take doxycycline 100mg 2 times a day for 7 more days and follow up with your primary doctor within a week to have the sutures removed. You should also follow up with your refrigerator glazier (Dr. Mendez) and infectious disease doctor (Dr. Gloria) within a week. Referrals: Justyn Mendez MD [Staff Physician] - Myron Gloria MD [Staff Physician] - Disposition: HOME - Home Medications Comprehensive Discharge Medication List: Ambulatory Orders Folic Acid 1 mg PO DAILY 01/29/17 Metoprolol Succinate [Toprol XL -] 25 mg PO BID 01/29/17 Omeprazole 20 mg PO DAILY 01/29/17 Sertraline HCl 50 mg PO DAILY 01/29/17 Apixaban [Eliquis -] 5 mg PO BID #0 tab 03/29/17 Doxycycline Hyclate [Vibratab -] 100 mg PO BID #14 tablet 03/29/17 This patient is new to me today: No Emergency Visit: No Critical Care patient: No - Discharge Referral Referred to [facility] Med P.C.: No
[2017-03-29] MEDS: MUPIROCIN 2% TOPICAL OINTMENT 22 GM TUBE TP SCH (12:28)
--- NOTE | 2017-03-29 14:12 | PN ---
Progress Note, Physician History of Present Illness: patient stable repeat wound cx are negative according to podiatry and the talk the resident had with the podiatry attending there is no evidence of osteomylitits according to them patient is stable - Current Medication List Current Medications: Active Medications Acetaminophen (Tylenol -) 650 mg PO Q4H PRN PRN Reason: FEVER OR PAIN Amino Acids (Prosource No Carb Liquid Pkt) 30 ml PO BID@0800,1730 [facility] Last Admin: 03/29/17 08:13 Dose: 30 ml Apixaban (Eliquis -) 5 mg PO BID [facility] Last Admin: 03/29/17 09:38 Dose: 5 mg Folic Acid (Folic Acid -) 1 mg PO DAILY [facility] Last Admin: 03/29/17 09:38 Dose: 1 mg Vancomycin HCl 1,250 mg/ (Dextrose) 250 mls @ 166.667 mls/hr IVPB DAILY [facility] PRN Reason: Protocol Last Admin: 03/29/17 09:39 Dose: 166.667 mls/hr Piperacillin Sod/Tazobactam Sod (Zosyn 3.375gm Ivpb (Pre-Docked)) 50 mls @ 100 mls/hr IVPB Q8H-IV [facility] PRN Reason: Protocol Last Admin: 03/29/17 10:38 Dose: 100 mls/hr Metoprolol Succinate (Toprol Xl -) 25 mg PO BID [facility] Last Admin: 03/29/17 09:39 Dose: 25 mg Multivitamins/Minerals/Vitamin C (Tab-A-Vit -) 1 tab PO DAILY [facility] Last Admin: 03/29/17 09:38 Dose: 1 tab Mupirocin (Bactroban 2% Ointment -) 1 applic TP BID [facility] Last Admin: 03/29/17 12:28 Dose: Not Given Nystatin (Mycostatin Cream -) 1 applic TP BID [facility] Last Admin: 03/29/17 09:40 Dose: 1 applic Ranitidine HCl (Zantac Oral Solution -) 150 mg PO BID [facility] Last Admin: 03/29/17 09:39 Dose: 150 mg Sertraline HCl (Zoloft -) 50 mg PO DAILY [facility] Last Admin: 03/29/17 09:39 Dose: 50 mg - Objective Vital Signs: Vital Signs Temperature 97.5 F L 03/29/17 08:15 Pulse Rate 68 03/29/17 08:15 Respiratory Rate 18 03/29/17 08:15 Blood Pressure 119/73 03/29/17 08:15 O2 Sat by Pulse Oximetry (%) 97 03/28/17 21:00 Constitutional: Yes: No Distress, Calm Cardiovascular: Yes: Regular Rate and Rhythm Respiratory: Yes: Regular, CTA Bilaterally Gastrointestinal: Yes: Normal Bowel Sounds, Soft Musculoskeletal: Yes: Other Extremities: Yes: Other Wound/Incision: Yes: Other Neurological: Yes: Alert, Oriented Labs: CBC, BMP 03/25/17 06:30 03/25/17 06:30 INR, PTT INR 1.75 (0.82-1.09) H 03/17/17 23:50 Assessment/Plan Problem List - Problems (1) DARELL (acute kidney injury) Code(s): N17.9 - ACUTE KIDNEY FAILURE, UNSPECIFIED (2) Sepsis Code(s): A41.9 - SEPSIS, UNSPECIFIED ORGANISM Qualifiers: Sepsis type: sepsis due to unspecified organism Qualified Code(s): A41.9 - Sepsis, unspecified organism (5) Hypertension Code(s): I10 - ESSENTIAL (PRIMARY) HYPERTENSION (6) Renal calculi Code(s): N20.0 - CALCULUS OF KIDNEY 7 uti pseudomonas 8 leukocytosis wound cx result noted plan reports noted since podiatry attending says patient does not have osteo and repeat cx are negative can send patient home on doxy 100 mg twice a day for another 5 days
[2017-03-29 15:36] VITALS: BP 95/65; PULSE 76; TEMP 97.8
== END 2017-03-29 16:13 | disposition home or self-care (01) | DRG 853 ==
LOC: JER 23:34 → JERBED 03-18 01:39 → JICU 03-18 02:27 → J8W 03-20 19:06
PROVIDERS: ADMIT Internal Medicine; ATTEND Internal Medicine
PROC: 0H9NXZZ Drainage of Left Foot Skin, External Approach (ICD-10-PCS; principal; 2017-03-19)
PROC: 0HDRXZZ Extraction of Toe Nail, External Approach (ICD-10-PCS; 2017-03-19)
PROC: 0HBNXZZ Excision of Left Foot Skin, External Approach (ICD-10-PCS; 2017-03-23)
PROC: 0QBR0ZX Excision of Left Toe Phalanx, Open Approach, Diagnostic (ICD-10-PCS; 2017-03-26)
DX: A41.9 Sepsis, unspecified organism (principal); G93.41 Metabolic encephalopathy; N39.0 Urinary tract infection, site not specified; N17.9 Acute kidney failure, unspecified; N20.1 Calculus of ureter; D68.69 Other thrombophilia; B96.5 Pseudomonas (aeruginosa) (mallei) (pseudomallei) as the cause of diseases classified elsewhere; I10 Essential (primary) hypertension; Z86.711 Personal history of pulmonary embolism; Z85.51 Personal history of malignant neoplasm of bladder; Z86.718 Personal history of other venous thrombosis and embolism; Z79.01 Long term (current) use of anticoagulants; F03.90 Unspecified dementia, unspecified severity, without behavioral disturbance, psychotic disturbance, mood disturbance, and anxiety; Z87.442 Personal history of urinary calculi; N28.1 Cyst of kidney, acquired; L89.891 Pressure ulcer of other site, stage 1; D72.829 Elevated white blood cell count, unspecified; L03.032 Cellulitis of left toe; B95.62 Methicillin resistant Staphylococcus aureus infection as the cause of diseases classified elsewhere; B95.2 Enterococcus as the cause of diseases classified elsewhere
CPT/HCPCS: 36415; 70450-TC; 71010-TC; 71250-TC; 73630-TC-LT; 74176-TC; 78315-TC; 80053; 81003; 81015; 82550; 82803; 83605; 83735; 84100; 84484; 85025; 85610; 85651; 85730; 86140; 86850; 86900; 86901; 87040; 87070; 87075; 87086; 87186; 87205; 93005; 93010; 93971-TC; 94760; 97116-GP; 97162-GP; 99284-25; A9503